=== PATIENT | male | born 1955 | race Caucasian/White ===

== ENCOUNTER 2018-06-23 12:37 | Inpatient (IN) | payer MEDICAID ==
[~2018-06-23] VITALS: Ht 182.9 cm; Wt 90.7 kg
[2018-06-23 13:03] VITALS: BP 160/110
--- NOTE | 2018-06-23 13:04 | NUR ---
brought in from home with complaints of abdominal pain which radiates to left upper chest x 3 days worse today , pain is worse when he take deep breath
--- NOTE | 2018-06-23 13:06 | NUR ---
venous blood draWN SEND TO LAB
--- NOTE | 2018-06-23 13:09 | NUR ---
ED Nurse Note: Pt is complaining of abdominal pain 10/10 radiating to his sides. x 2.5 weeks. A + O x4. Ambulatory. Skin cool to touch.
[2018-06-23] MEDS ORDERED: Ketorolac 30mg Inj IV ONE (13:15)
[2018-06-23] MEDS ORDERED: Isovue-300 100ml vial INJ PRN (13:15)
[2018-06-23 13:43] LABS: INR 1.1 (0.9-1.1)
[2018-06-23 13:47] LABS: ANION GAP 11 mmol/L (5-15); BLOOD UREA NITROGEN 28 mg/dL (7-18); CALCIUM 10.2 MG/DL (8.5-10.1); CARBON DIOXIDE 27 MMOL/L (21-32); CHLORIDE 102 MMOL/L (98-107); CREATININE 1.1 MG/DL (0.55-1.30); POTASSIUM 4.2 MMOL/L (3.5-5.1); SODIUM 140 MMOL/L (136-145)
[2018-06-23 13:54] LABS: ALANINE AMINOTRANSFERASE 36 U/L (12-78); ALBUMIN 4.5 G/DL (3.4-5.0); ALBUMIN/GLOBULIN RATIO 1.6 (1.0-2.7); ALKALINE PHOSPHATASE 50 U/L (46-116); ASPARTATE AMINO TRANSFERASE 29 U/L (15-37); BILIRUBIN,TOTAL 0.9 MG/DL (0.2-1.0)
[2018-06-23 14:03] LABS: BASOPHILS % (AUTO) 0.6 % (0.0-2.0); EOSINOPHILS % (AUTO) 2.1 % (0.0-3.0); HEMATOCRIT 52.2 % (42.0-52.0); HEMOGLOBIN 17.8 G/DL (14.2-18.0); LYMPHOCYTES % (AUTO) 11.2 % (20.0-45.0); MEAN CORPUSCULAR VOLUME 99 FL (80-99); MONOCYTES % (AUTO) 7.6 % (1.0-10.0); NEUTROPHILS % (AUTO) 78.5 % (45.0-75.0); PLATELET COUNT 162 K/UL (150-450); RED BLOOD COUNT 5.25 M/UL (4.70-6.10); RED CELL DISTRIBUTION WIDTH 11.3 % (11.6-14.8); WHITE BLOOD COUNT 11.7 K/UL (4.8-10.8)
[2018-06-23 14:03] LABS: APPEARANCE,URINE CLEAR; BILIRUBIN, URINE NEGATIVE (NEGATIVE); GLUCOSE, URINE (UA) NEGATIVE (NEGATIVE); KETONES,URINE NEGATIVE (NEGATIVE); LEUKOCYTE ESTERASE ,URINE 1+ (NEGATIVE); NITRITE,URINE NEGATIVE (NEGATIVE); PH,URINE 5 (4.5-8.0); PROTEIN,URINE 2+ (NEGATIVE); UROBILINOGEN,URINE 1 MG/DL (0.0-1.0)
[2018-06-23] MEDS ORDERED: TAMSULOSIN HCL0.4 MG ORAL (14:09)
[2018-06-23] MEDS ORDERED: NAPROXEN500 M2 ORAL (14:09)
[2018-06-23] MEDS ORDERED: CYCLOBENZAPRINE10 MG ORAL (14:09)
[2018-06-23] MEDS ORDERED: [UNRECOGNIZED DRUG - OTHER] (14:09)
[2018-06-23] MEDS ORDERED: TRAMADOL HCL50 MG ORAL (14:09)
[2018-06-23] MEDS ORDERED: GABAPENTIN300 MG ORAL (14:09)
[2018-06-23 14:18] LABS: COLOR,URINE YELLOW
--- NOTE | 2018-06-23 14:56 | NUR ---
ED Nurse Note: Pt going to CT.
--- NOTE | 2018-06-23 15:15 | NUR ---
ED Nurse Note: Pt came back from CT.
--- NOTE | 2018-06-23 15:22 | Emergency Room Report ---
History of Present Illness General Chief Complaint: Pain Source: Patient Present Illness HPI Patient is a 62-year-old male presented after increased low back pain. Patient reported to have increased generalized pain associated with low back spasms. He reportedly had prior history of lumbar disease. He denies any fever. He reports having worsening symptoms which she had onset after forcible sneeze.Reports having increased difficulty with ambulation. He states he has been having increased spasm to his low back.Patient had prior history of degenerative low back pain. He had reportedly been having increased symptoms for approximately 1 week. Patient denies any difficulty with urination. He denies any vomiting. He reports having increased abdominal distention Allergies: Coded Allergies: No Known Allergies (Unverified , 06/23/18) Patient History Past Medical History: see triage record Reviewed Nursing Documentation: PMH: Agreed; PSxH: Agreed Nursing Documentation-PMH Past Medical History: No History, Except For Hx Hypertension: Yes Hx Neurological Problems: Yes - neurontin Review of Systems All Other Systems: negative except mentioned in HPI Physical Exam Vital Signs Date Time Temp Pulse Resp B/P (MAP) Pulse Ox O2 Delivery O2 Flow Rate FiO2 06/23/18 12:33 98.4 94 20 160/110 96 Room Air Sp02 EP Interpretation: reviewed, normal General Appearance: normal inspection, no apparent distress, alert, GCS 15, Chronically Ill Head: atraumatic ENT: normal ENT inspection, hearing grossly normal, normal voice Neck: normal inspection, full range of motion, supple, no bony tend Respiratory: normal inspection, lungs clear, normal breath sounds, no respiratory distress, no retraction, no wheezing Cardiovascular #1: regular rate, rhythm, no edema Gastrointestinal: non tender, soft, no guarding, no hernia, distended Genitourinary: no CVA tenderness Musculoskeletal: normal range of motion, decreased range of motion Neurologic: normal inspection, alert, oriented x3, responsive, sports coordinator III-XII nml as tested, speech normal Psychiatric: normal inspection, judgement/insight normal, mood/affect normal Skin: normal inspection, normal color, no rash Medical Decision Making Diagnostic Impression: Primary Impression: Acute abdominal pain Additional Impression: Back muscle spasm ER Course Patient presented for low back pain. Differential diagnosis included but was not limited to herniated disc, cauda equina syndrome, abdominal aortic aneurysm , perforated ulcer, spinal epidural abscess, spinal stenosis, lumbar fracture, metastatic lesion, pyelonephritis. Because of complexity of patient's case laboratory testing and imaging studies were ordered. CT of the abdomen pelvis read by radiology showed abdominal distention no evidence of bowel obstruction with moderate fecal burden and bilateral small pleural effusions. Patient was given IV pain medications. Dr. Sukhdeep Wall was contacted for inpatient management due to patient's severe pain and evidence of pleural effusions. Patient will be admitted for further management and inpatient evaluation. At this time patient is able to move both lower extremities. Dr. Sukhdeep Wall was contacted for inpatient management. Laboratory Tests Test 06/24/18 08:45 06/25/18 08:05 06/25/18 10:10 06/25/18 12:50 White Blood Count 17.9 K/UL (4.8-10.8) #H 25.7 K/UL (4.8-10.8) *H Red Blood Count 5.52 M/UL (4.70-6.10) 5.52 M/UL (4.70-6.10) Hemoglobin 18.7 G/DL (14.2-18.0) *H 18.8 G/DL (14.2-18.0) *H Hematocrit 54.3 % (42.0-52.0) H 54.1 % (42.0-52.0) H Mean Corpuscular Volume 98 FL (80-99) 98 FL (80-99) Mean Corpuscular Hemoglobin 33.8 PG (27.0-31.0) H 34.1 PG (27.0-31.0) H Mean Corpuscular Hemoglobin Concent 34.4 G/DL (32.0-36.0) 34.8 G/DL (32.0-36.0) Red Cell Distribution Width 11.5 % (11.6-14.8) L 11.5 % (11.6-14.8) L Platelet Count 175 K/UL (150-450) 133 K/UL (150-450) L Mean Platelet Volume 6.9 FL (6.5-10.1) 7.8 FL (6.5-10.1) Neutrophils (%) (Auto) % (45.0-75.0) % (45.0-75.0) Lymphocytes (%) (Auto) % (20.0-45.0) % (20.0-45.0) Monocytes (%) (Auto) % (1.0-10.0) % (1.0-10.0) Eosinophils (%) (Auto) % (0.0-3.0) % (0.0-3.0) Basophils (%) (Auto) % (0.0-2.0) % (0.0-2.0) Differential Total Cells Counted 100 100 Neutrophils % (Manual) 91 % (45-75) H 94 % (45-75) H Lymphocytes % (Manual) 6 % (20-45) L 1 % (20-45) L Monocytes % (Manual) 3 % (1-10) 2 % (1-10) Eosinophils % (Manual) 0 % (0-3) 0 % (0-3) Basophils % (Manual) 0 % (0-2) 0 % (0-2) Band Neutrophils 0 % (0-8) 3 % (0-8) Platelet Estimate Adequate Decreased L Platelet Morphology Normal Normal Red Blood Cell Morphology Normal Normal Sodium Level 141 MMOL/L (136-145) 138 MMOL/L (136-145) Potassium Level 4.3 MMOL/L (3.5-5.1) 3.8 MMOL/L (3.5-5.1) Chloride Level 102 MMOL/L (98-107) 101 MMOL/L (98-107) Carbon Dioxide Level 29 MMOL/L (21-32) 23 MMOL/L (21-32) Anion Gap 10 mmol/L (5-15) 14 mmol/L (5-15) Blood Urea Nitrogen 22 mg/dL (7-18) H 28 mg/dL (7-18) H Creatinine 1.0 MG/DL (0.55-1.30) 1.2 MG/DL (0.55-1.30) Estimate Glomerular Filtration Rate > 60 mL/min (>60) > 60 mL/min (>60) Glucose Level 107 MG/DL (74-106) H 138 MG/DL (74-106) H Calcium Level 10.4 MG/DL (8.5-10.1) H 10.8 MG/DL (8.5-10.1) H Lactic Acid Level 2.40 mmol/L (0.4-2.0) H 3.10 mmol/L (0.66-2.22) H Last Vital Signs Date Time Temp Pulse Resp B/P (MAP) Pulse Ox O2 Delivery O2 Flow Rate FiO2 06/23/18 13:03 98.4 20 160/110 96 Room Air 06/23/18 12:33 94 Status: unchanged Disposition: ADMITTED INPATIENT Condition: Stable Referrals: NON PHYSICIAN (PCP) Maxx Bustos MD Jun 23, 2018 15:22
--- NOTE | 2018-06-23 15:47 | Diagnostic Imaging Report ---
Indication: Abdominal pain Technique: CT of the abdomen and pelvis utilizing automated exposure control with intravenous contrast. Venous scanning performed. Axial, sagittal and coronal reformats presented. CT dose: Total DLP 886.07 mGycm; CTDI vol 14.56 mGy Comparison: None Findings: There are trace bilateral pleural effusions, right greater than left. There is atelectasis/consolidation in the posterior lower lobes bilaterally. Heart is mildly enlarged. There are coronary arterial calcifications. There is a small hiatal hernia. Liver contour appears smooth. At least 2 subcentimeter low-attenuation lesions noted in the right hepatic lobe which may represent cysts or hemangiomas. These are poorly characterized on this exam. Gallbladder is without CT evident gallstones or pericholecystic inflammatory change. No biliary ductal dilatation. Hepatic veins and portal veins appear patent. Spleen, adrenal glands and pancreas unremarkable. Kidneys enhance symmetrically. No urinary tract stone or hydronephrosis bilaterally. Bladder is unremarkable in appearance. Prostate does not appear enlarged. A coarse calcifications noted in the region of the right testicle. There is no free intraperitoneal air or fluid. No evidence of bowel obstruction. No definite focal bowel wall thickening or perienteric inflammatory change. There is moderate colonic stool in the right and transverse colons. Atherosclerotic calcifications noted in a normal caliber abdominal aorta. No pathologically enlarged lymphadenopathy. No acute osseous abnormality. IMPRESSION: * Trace bilateral pleural effusions and adjacent atelectasis/consolidation in the posterior lower lobes. Multifocal pneumonia not excludable. * Moderate colonic stool burden raising question for constipation. No evidence to suggest bowel obstruction at this time. * Coronary arterial calcifications. * Small hiatal hernia. * 2 subcentimeter low-attenuation lesions in the right hepatic lobe which may represent cysts or hemangiomas. * Coarse calcification noted in the right testicle. Recommend further evaluation with scrotal ultrasound on a nonemergent basis. The CT scanner at [facility] is accredited by the [employer] and the scans are performed using protocols designed to limit radiation exposure to as low as reasonably achievable to attain images of sufficient resolution adequate for diagnostic evaluation.
[2018-06-23] MEDS ORDERED: Morphine Sulfate 4mg/ml Inj (IV/IM USE ONLY) IVP ONE (16:00)
--- NOTE | 2018-06-23 16:09 | NUR ---
ED Nurse Note: As per ERMD, pt okay to go up with SBP <170
--- NOTE | 2018-06-23 16:16 | NUR ---
ED Nurse Note: Gave telephone report to SHALOM Alberto. Waiting for packet from registration.
[2018-06-23 16:30] VITALS: BP 194/112
[2018-06-23] MEDS ORDERED: Fleet's Enema 133ml RECTAL SCH (16:30)
--- NOTE | 2018-06-23 16:30 | NUR ---
NURSE NOTES: Received report from SHALOM Booth. Pt is in severe abdominal pain that radiates from to right and left flank. Pt has not had a BM in [address] Giron paged. Bed is in lowest position, side rails up X2, and call light is within reach. Will continue to monitor.
--- NOTE | 2018-06-23 16:32 | NUR ---
ED Nurse Note: Transferred pt to tele. No acute distress noted. Left with all belongings.
[2018-06-23] MEDS: Docusate 100mg cap ORAL SCH (18:00)
--- NOTE | 2018-06-23 18:50 | NUR ---
NURSE NOTES: received orders from Dr. Giron. Orders noted and carried out.
[2018-06-23] MEDS: Morphine Sulfate 4mg/ml Inj (IV/IM USE ONLY) IVP PRN (19:31)
--- NOTE | 2018-06-23 19:50 | NUR ---
NURSE NOTES: patient received. patient in no acute distress at this time. patient complains of severe pain at this time. see emar. patient awake alert and oriented x4. patient constipated. see emar. bed in lowest position and locked. call light within reach. will continue to monitor.
[2018-06-23 20:00] VITALS: BP 211/123
--- NOTE | 2018-06-23 20:29 | History and Physical ---
History of Present Illness General Date patient seen: Jun 23, 2018 Time patient seen: 20:13 Reason for Hospitalization: Pain Present Illness HPI 62 yo male with h/o lumbar back pain presents with complaints of increasing lower back and abdominal pain. 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 States he takes pain medications at home for it. States it is difficult to walk due to pain. Patient also admits to severe diffuse abdominal pain, admits that he has not had a BM for almost two weeks. Denies vomiting, admits to occasional nausea. Admits to poor appetite. Denies fevers/chills/cp/sob, denies dysuria, denies [place]/vision changes. soc hx reviewed, denies smoking, drugs or alcohol use past fam hx reviewed, denies any sig past fam hx code status reviewed, DNR/DNI Allergies: Coded Allergies: No Known Allergies (Unverified , 06/23/18) Medication History Scheduled Cyclobenzaprine Hcl* (Flexeril*), 10 MG ORAL THREE TIMES A DAY, (Reported) Gabapentin* (Gabapentin*), 300 MG ORAL BID, (Reported) Naproxen* (Naproxen*), 500 MG ORAL TWICE A DAY, (Reported) Tamsulosin Hcl (Tamsulosin Hcl*), 0.4 MG ORAL BEDTIME, (Reported) Scheduled PRN Tramadol Hcl* (Ultram*), 50 MG ORAL Q6H PRN for For Pain, (Reported) Miscellaneous Medications [trumac], (Reported) Patient History History Provided By: Patient, Medical Record Healthcare decision maker Resuscitation status Do Not Resuscitate Advanced Directive on File Review of Systems All Other Systems: negative except mentioned in HPI ROS Narrative 14 point ROS reviewed and negative except per above HPI Physical Exam General Appearance: WD/WN, alert, mild distress Lines, tubes and drains: peripheral HEENT: normocephalic Neck: non-tender, normal alignment, supple, normal inspection Respiratory/Chest: chest wall non-tender, lungs clear, normal breath sounds, no respiratory distress, no accessory muscle use Cardiovascular/Chest: normal peripheral pulses, normal rate, regular rhythm Abdomen: no organomegaly, no mass, decreased bowel sounds, other - abdominal distention, mild ttp diffusely Extremities: normal range of motion, non-tender, normal inspection, no calf tenderness Skin Exam: normal pigmentation, warm/dry Neurologic: triage assistant II-XII grossly normal, no motor/sensory deficits, alert, oriented x 3, responsive, normal mood/affect Last 24 Hour Vital Signs Date Time Temp Pulse Resp B/P (MAP) Pulse Ox O2 Delivery O2 Flow Rate FiO2 06/23/18 17:58 Room Air 06/23/18 16:33 97.5 92 14 168/114 95 Room Air 06/23/18 16:30 99.9 97 22 194/112 (139) 100 06/23/18 13:03 98.4 20 160/110 96 Room Air 06/23/18 12:33 98.4 94 20 160/110 96 Room Air Laboratory Tests Test 06/23/18 12:58 06/23/18 13:45 White Blood Count 11.7 K/UL (4.8-10.8) H Red Blood Count 5.25 M/UL (4.70-6.10) Hemoglobin 17.8 G/DL (14.2-18.0) Hematocrit 52.2 % (42.0-52.0) H Mean Corpuscular Volume 99 FL (80-99) Mean Corpuscular Hemoglobin 33.9 PG (27.0-31.0) H Mean Corpuscular Hemoglobin Concent 34.1 G/DL (32.0-36.0) Red Cell Distribution Width 11.3 % (11.6-14.8) L Platelet Count 162 K/UL (150-450) Mean Platelet Volume 7.3 FL (6.5-10.1) Neutrophils (%) (Auto) 78.5 % (45.0-75.0) H Lymphocytes (%) (Auto) 11.2 % (20.0-45.0) L Monocytes (%) (Auto) 7.6 % (1.0-10.0) Eosinophils (%) (Auto) 2.1 % (0.0-3.0) Basophils (%) (Auto) 0.6 % (0.0-2.0) Prothrombin Time 11.4 SEC (9.30-11.50) Prothromb Time International Ratio 1.1 (0.9-1.1) Activated Partial Thromboplast Time 26 SEC (23-33) Sodium Level 140 MMOL/L (136-145) Potassium Level 4.2 MMOL/L (3.5-5.1) Chloride Level 102 MMOL/L (98-107) Carbon Dioxide Level 27 MMOL/L (21-32) Anion Gap 11 mmol/L (5-15) Blood Urea Nitrogen 28 mg/dL (7-18) H Creatinine 1.1 MG/DL (0.55-1.30) Estimat Glomerular Filtration Rate > 60 mL/min (>60) Glucose Level 99 MG/DL (74-106) Calcium Level 10.2 MG/DL (8.5-10.1) H Total Bilirubin 0.9 MG/DL (0.2-1.0) Aspartate Amino Transf (AST/SGOT) 29 U/L (15-37) Alanine Aminotransferase (ALT/SGPT) 36 U/L (12-78) Alkaline Phosphatase 50 U/L (46-116) Total Protein 7.3 G/DL (6.4-8.2) Albumin 4.5 G/DL (3.4-5.0) Globulin 2.8 g/dL Albumin/Globulin Ratio 1.6 (1.0-2.7) Lipase 78 U/L (73-393) Urine Color Yellow Urine Appearance Clear Urine pH 5 (4.5-8.0) Urine Specific [place] 1.025 (1.005-1.035) Urine Protein 2+ (NEGATIVE) H Urine Glucose (UA) Negative (NEGATIVE) Urine Ketones Negative (NEGATIVE) Urine Blood 1+ (NEGATIVE) H Urine Nitrite Negative (NEGATIVE) Urine Bilirubin Negative (NEGATIVE) Urine Urobilinogen 1 MG/DL (0.0-1.0) H Urine Leukocyte Esterase 1+ (NEGATIVE) H Urine RBC 2-4 /HPF (0 - 0) H Urine WBC 2-4 /HPF (0 - 0) Urine Squamous Epithelial Cells Occasional /LPF Urine Bacteria Occasional /HPF (NONE) Height (Feet): 6 Height (Inches): 0.00 Weight (Pounds): 200 Medications Current Medications Medications (Trade) Dose Ordered Sig/Mitzi Route PRN Reason Start Time Stop Time Status Last Admin Dose Admin Docusate Sodium (Colace) 100 mg THREE TIMES A DAY ORAL 06/23/18 18:00 07/23/18 17:59 06/23/18 18:00 Heparin Sodium (Porcine) (Heparin 5000 units/ml) 5,000 units EVERY 12 HOURS SUBQ 06/23/18 21:00 1/25/19 20:59 Iopamidol (Isovue-300 100ml) 100 ml NOW PRN INJ Radiology Procedure 06/23/18 13:15 Metoprolol Tartrate (Lopressor) 25 mg Q12HR ORAL 06/23/18 21:00 07/23/18 20:59 Morphine Sulfate (Morphine Sulfate) 1 mg Q4H PRN IVP For Pain 06/23/18 19:00 06/30/18 18:59 06/23/18 19:31 Ondansetron HCl (Zofran) 4 mg Q6H PRN IVP Nausea & Vomiting 06/23/18 19:00 07/23/18 18:59 Pantoprazole (Protonix) 40 mg DAILY IVP 06/24/18 09:00 07/24/18 08:59 Polyethylene Glycol (Miralax) 17 gm BEDTIME ORAL 06/23/18 21:00 07/23/18 20:59 Promethazine HCl (Phenergan Supp) 25 mg ONCE RECTAL 06/23/18 20:00 06/23/18 22:00 Sodium Chloride 1,000 ml @ 100 mls/hr Q10H IV 06/23/18 19:00 07/23/18 18:59 06/23/18 19:15 Assessment/Plan Problem List: (1) Back pain at L4-L5 level Assessment & Plan: likely muscle spasms vs nerve impingement MRI L-Spine wo contrast pending resume muscle relaxants gabapentin cyclobenzaprine morphine 2mg IV q6hrs ICD Codes: M54.5 - Low back pain SNOMED: 627481693 (2) Acute abdominal pain Assessment & Plan: due to severe constipation CT abd/pelvis reviewed, showing fecal impaction enema bowel care suppository gi consult monitor closely ICD Codes: R10.9 - Unspecified abdominal pain SNOMED: 889306585 (3) Fecal impaction Assessment & Plan: as per above cont bowel care gi consult ICD Codes: K56.41 - Fecal impaction SNOMED: 64121170 (4) DEANNA (acute kidney injury) Assessment & Plan: due to dehydration Cr 1.1 likely prerenal IVF monitor closely ICD Codes: N17.9 - Acute kidney failure, unspecified SNOMED: 17718691 (5) Dehydration Assessment & Plan: IVF for hydration monitor closely NS 100cc/hr ICD Codes: E86.0 - Dehydration SNOMED: 07877028 Status: stable Assessment/Plan diet: clear liquid , adat DVT Prophylaxis: SCD, HSQ Code Status: Full Hospital Classification Declaration: Based on this initial evaluation, and depending on the patient's clinical course, I anticipate that this patient will require hospitalization for 2-3 midnights for severe back pain and abdominal pain and close respiratory/hemodynamic monitoring. Disposition: Once the patient is stable to leave the hospital, I anticipate the patient will likely be discharged to the following environment: home with HH vs SNF I spent 70 minutes on this patient's case, and 43 minutes were dedicated to counseling and/or care coordination. Discussed with patient/family, nursing staff, SW/CM, [] regarding clinical status, treatment course, and disposition planning. Time of note may not reflect time of encounter. -- Date of Discussion: 06/23/18 A [id number] discussion with the patient regarding the patient's advanced care planning took place during this hospitalization on the above date. The discussion included the explanation and discussion of advance directives and associated forms/documents, as well as the patient's current code status. We also discussed at length the patient's medical conditions (both acute and chronic), general prognosis, treatment options, and goals of care. The following summarizes the discussion: Advance Care Planning/Goals of Care: - Will attempt to fill out an AD and/or POLST with the patient prior to discharge, if not already completed - Continue current evaluation and management of any acute and chronic medical issues - Will continue to support the patient/family - Will continue to discuss both short- and long-term goals of care DPOA-HC/Surrogate Decision Maker: None currently appointed . He does not have any friends/family that could support him or help him if needed Code Status: DNR/DNI AD Forms/Documents Completed: Deferred A total of 35 minutes was spent on this discussion, including counseling, answering questions, and completing, if any, pertinent advanced care planning forms/documents. Dudley Giron MD Jun 23, 2018 20:29
--- NOTE | 2018-06-23 20:30 | NUR ---
NURSE NOTES: Report given to SHALOM Lea. Plan of care endorsed.
[2018-06-23] MEDS: Metoprolol 25mg tab ORAL SCH (20:58)
[2018-06-23] MEDS: Miralax 17gm pkt ORAL SCH (20:58)
[2018-06-23] MEDS: Heparin 5000 units/ml inj SUBQ SCH (20:59)
[2018-06-23] MEDS: Tamsulosin 0.4mg cap ORAL SCH (21:19)
[2018-06-23] MEDS: Cyclobenzaprine 10mg Tab ORAL SCH (21:20)
--- NOTE | 2018-06-23 21:28 | NUR ---
NURSE NOTES: Dr. Chou called and informed about patients high blood pressure 211/129. he ordered some medication PRN see emar. will continue to monitor.
[2018-06-24] VITALS: BP 193/119
--- NOTE | 2018-06-24 07:16 | NUR ---
NURSE NOTES: patient very distended and in a lot of pain. wants muscle relaxer and fleet enama. I had called dr jacobo and he hasnt called yet. I informed the day shift nurse.
--- NOTE | 2018-06-24 07:18 | NUR ---
HAND-OFF: Report given to SHALOM darby.
--- NOTE | 2018-06-24 07:19 | NUR ---
NURSE NOTES: Received patient from SHALOM Palma.Patient was complaining of a lot of abdominal pain, Pain medication given to patient. Patient is resting in bed and in semi-marsh position. IV site is asymptomatic and running in RX dose. No sign of SOB. Bed in lowest position with two side rails up. Side table and call light within reach, will continue to monitor and follow plan of care.
[2018-06-24] MEDS: Morphine Sulfate 4mg/ml Inj (IV/IM USE ONLY) IVP PRN ×3 (07:20→20:22)
[2018-06-24 08:00] VITALS: BP 184/114
--- NOTE | 2018-06-24 08:21 | General Progress Note ---
Assessment/Plan Problem List: (1) Small bowel obstruction Assessment & Plan: SBO not passing gas ct showing fecal impaction enema given on admit, no BMs still severe abd pain pain control GI consult for further recs close monitoring may need NGT ICD Codes: K56.609 - Unspecified intestinal obstruction, unspecified as to partial versus complete obstruction SNOMED: 021174663 (2) Acute abdominal pain Assessment & Plan: due to severe constipation CT abd/pelvis reviewed, showing fecal impaction enema bowel care suppository gi consult monitor closely ICD Codes: R10.9 - Unspecified abdominal pain SNOMED: 393103857 (3) Fecal impaction Assessment & Plan: as per above cont bowel care gi consult ICD Codes: K56.41 - Fecal impaction SNOMED: 43887669 (4) Back pain at L4-L5 level Assessment & Plan: likely muscle spasms vs nerve impingement MRI L-Spine wo contrast pending resume muscle relaxants gabapentin cyclobenzaprine morphine 2mg IV q6hrs ICD Codes: M54.5 - Low back pain SNOMED: 890217144 (5) DEANNA (acute kidney injury) Assessment & Plan: due to dehydration Cr 1.1 on admit, pending repeat labs, cont IVF likely prerenal IVF monitor closely ICD Codes: N17.9 - Acute kidney failure, unspecified SNOMED: 00097601 (6) Dehydration Assessment & Plan: IVF for hydration monitor closely NS 100cc/hr ICD Codes: E86.0 - Dehydration SNOMED: 36758807 (7) AIDS Assessment & Plan: patient unsure of home medication however states he is very compliant pharmacy to help ICD Codes: B20 - Human immunodeficiency virus [HIV] disease SNOMED: 56895809 (8) HIV (human immunodeficiency virus infection) Assessment & Plan: pharmacy to help find patient's medication and dosing so that we can resume patient unsure of medication name/dosing, states he is compliant ICD Codes: B20 - Human immunodeficiency virus [HIV] disease SNOMED: 48218538 Status: stable Assessment/Plan diet: clear liquid , adat DVT Prophylaxis: SCD, HSQ Code Status: Full Hospital Classification Declaration: Based on this initial evaluation, and depending on the patient's clinical course, I anticipate that this patient will require hospitalization for 2-3 midnights for severe back pain and abdominal pain and close respiratory/hemodynamic monitoring. Disposition: Once the patient is stable to leave the hospital, I anticipate the patient will likely be discharged to the following environment: home I spent 60 minutes on this patient's case, and 40 minutes were dedicated to counseling and/or care coordination. Discussed with patient/family, nursing staff, SW/CM, abd consultants regarding clinical status, treatment course, and disposition planning. Time of note may not reflect time of encounter. -- Date of Discussion: 06/23/18 A [id number] discussion with the patient regarding the patient's advanced care planning took place during this hospitalization on the above date. The discussion included the explanation and discussion of advance directives and associated forms/documents, as well as the patient's current code status. We also discussed at length the patient's medical conditions (both acute and chronic), general prognosis, treatment options, and goals of care. The following summarizes the discussion: Advance Care Planning/Goals of Care: - Will attempt to fill out an AD and/or POLST with the patient prior to discharge, if not already completed - Continue current evaluation and management of any acute and chronic medical issues - Will continue to support the patient/family - Will continue to discuss both short- and long-term goals of care DPOA-HC/Surrogate Decision Maker: None currently appointed . He does not have any friends/family that could support him or help him if needed Code Status: DNR/DNI AD Forms/Documents Completed: Deferred A total of 35 minutes was spent on this discussion, including counseling, answering questions, and completing, if any, pertinent advanced care planning forms/documents. Subjective Date patient seen: Jun 24, 2018 Time patient seen: 08:15 Allergies: Coded Allergies: No Known Allergies (Unverified , 06/23/18) Subjective f/u sbo, abdominal distention, intractable abdominal pain, back pain states he is still having severe abdominal pain denies passing Gas No BMs overnight despite enema given states pain is diffuse admits to mild nausea but no vomiting GI consult pending for further evaluation denies fevers/chills/cp/sob ROS: 14 point ROS negative except per above HPI Objective Last 24 Hour Vital Signs Date Time Temp Pulse Resp B/P (MAP) Pulse Ox O2 Delivery O2 Flow Rate FiO2 06/24/18 04:00 96 06/24/18 00:00 102 06/24/18 00:00 193/119 (143) 06/23/18 22:32 211/129 06/23/18 21:00 Room Air 06/23/18 20:58 92 168/114 06/23/18 20:00 103 06/23/18 20:00 211/123 (152) 06/23/18 17:58 Room Air 06/23/18 16:33 97.5 92 14 168/114 95 Room Air 06/23/18 16:30 99.9 97 22 194/112 (139) 100 06/23/18 13:03 98.4 20 160/110 96 Room Air 06/23/18 12:33 98.4 94 20 160/110 96 Room Air Intake and Output 06/23/18 06/24/18 19:00 07:00 Output Total 250 ml Balance -250 ml Output Urine Total 250 ml # Voids 1 1 Laboratory Tests 06/23/18 12:58: White Blood Count 11.7H, Red Blood Count 5.25, Hemoglobin 17.8, Hematocrit 52.2H , Mean Corpuscular Volume 99, Mean Corpuscular Hemoglobin 33.9H, Mean Corpuscular Hemoglobin Concent 34.1, Red Cell Distribution Width 11.3L, Platelet Count 162, Mean Platelet Volume 7.3, Neutrophils (%) (Auto) 78.5H, Lymphocytes (%) (Auto) 11.2L, Monocytes (%) (Auto) 7.6, Eosinophils (%) (Auto) 2.1, Basophils (%) (Auto) 0.6, Prothrombin Time 11.4, Prothromb Time International Ratio 1.1, Activated Partial Thromboplast Time 26, Sodium Level 140, Potassium Level 4.2, Chloride Level 102, Carbon Dioxide Level 27, Anion Gap 11, Blood Urea Nitrogen 28H, Creatinine 1.1, Estimat Glomerular Filtration Rate > 60, Glucose Level 99, Calcium Level 10.2H, Total Bilirubin 0.9, Aspartate Amino Transf (AST/SGOT) 29, Alanine Aminotransferase (ALT/SGPT) 36, Alkaline Phosphatase 50, Total Protein 7.3, Albumin 4.5, Globulin 2.8, Albumin/ Globulin Ratio 1.6, Lipase 78 06/23/18 13:45: Urine Color Yellow, Urine Appearance Clear, Urine pH 5, Urine Specific [place] 1.025, Urine Protein 2+H, Urine Glucose (UA) Negative, Urine Ketones Negative, Urine Blood 1+H, Urine Nitrite Negative, Urine Bilirubin Negative, Urine Urobilinogen 1H, Urine Leukocyte Esterase 1+H, Urine RBC 2-4H, Urine WBC 2-4, Urine Squamous Epithelial Cells Occasional, Urine Bacteria Occasional Height (Feet): 6 Height (Inches): 0.00 Weight (Pounds): 200 Objective General Appearance: WD/WN, alert, mild distress Lines, tubes and drains: peripheral HEENT: normocephalic Neck: non-tender, normal alignment, supple, normal inspection Respiratory/Chest: chest wall non-tender, lungs clear, normal breath sounds, no respiratory distress, no accessory muscle use Cardiovascular/Chest: normal peripheral pulses, normal rate, regular rhythm Abdomen: no organomegaly, no mass, decreased bowel sounds, other - abdominal distention, mild ttp diffusely Extremities: normal range of motion, non-tender, normal inspection, no calf tenderness Skin Exam: normal pigmentation, warm/dry 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
--- NOTE | 2018-06-24 08:28 | NUR ---
06/24 @ 0800 HRS pt CURRENTLY REFUSING MRI DUE TO CLAUSTROPHOBIA. CLAIMS THAT SEDATION WILL NOT HELP - CS
[2018-06-24] MEDS: Pantoprazole Inj IVP SCH (08:45)
[2018-06-24] MEDS: Cyclobenzaprine 10mg Tab ORAL SCH ×3 (08:45→18:02)
[2018-06-24] MEDS: Docusate 100mg cap ORAL SCH ×3 (08:46→18:02)
[2018-06-24] MEDS: Metoprolol 25mg tab ORAL SCH ×2 (08:46→20:19)
[2018-06-24] MEDS: Heparin 5000 units/ml inj SUBQ SCH ×2 (08:54→20:21)
[2018-06-24 09:05] LABS: HEMATOCRIT 54.3 % (42.0-52.0); MEAN CORPUSCULAR VOLUME 98 FL (80-99); PLATELET COUNT 175 K/UL (150-450); RED BLOOD COUNT 5.52 M/UL (4.70-6.10); RED CELL DISTRIBUTION WIDTH 11.5 % (11.6-14.8); WHITE BLOOD COUNT 17.9 K/UL (4.8-10.8)
[2018-06-24 09:06] LABS: HEMOGLOBIN 18.7 G/DL (14.2-18.0)
[2018-06-24 09:10] LABS: ANION GAP 10 mmol/L (5-15); BLOOD UREA NITROGEN 22 mg/dL (7-18); CALCIUM 10.4 MG/DL (8.5-10.1); CARBON DIOXIDE 29 MMOL/L (21-32); CHLORIDE 102 MMOL/L (98-107); POTASSIUM 4.3 MMOL/L (3.5-5.1); SODIUM 141 MMOL/L (136-145)
[2018-06-24] MEDS ORDERED: Fleet's Enema 133ml RECTAL ONE (10:15)
--- NOTE | 2018-06-24 11:08 | GI Initial Consult Note ---
History of Present Illness General Date patient seen: Jun 24, 2018 Time patient seen: 11:02 Reason for Hospitalization: Pain Referring physician: JEAN PAUL UMANZOR Reason for Consultation: SBO Present Illness HPI Patient is a 62-year-old male presented after increased low back pain. Patient reported to have increased generalized pain associated with low back spasms. He poorly had prior history of lumbar disease. He denies any fever. He reports having worsening symptoms which she had onset after forcible sneeze.Reports having increased difficulty with ambulation. He states he has been having increased spasm to his low back. GI consulted for possible small bowel obstruction patient was seen, awake alert and oriented x4 with no apparent distress. Abdomen was assessed noted to be distended, tympanic in all quadrants. Abdominal pelvis CT was done, mainly noted for no signs of a small bowel obstruction. According to the patient, he states he is not passing any flatus nor has had a bowel movement in approximately 3 weeks and is complaining of increased abdominal discomfort. Patient states she takes tramadol and Neurontin for his neuropathy. He states his last colonoscopy has been greater than 5 years ago with no remarkable results. Home Meds Reported Medications [trumac] No Conflict Check 06/23/18 Tamsulosin Hcl (TAMSULOSIN HCL*) 0.4 Mg Cap.er.24h, 0.4 MG ORAL BEDTIME, CAP 06/23/18 Cyclobenzaprine Hcl* (FLEXERIL*) 10 Mg Tablet, 10 MG ORAL THREE TIMES A DAY, TAB 06/23/18 Naproxen* (NAPROXEN*) 500 Mg Tablet, 500 MG ORAL TWICE A DAY, TAB 06/23/18 Gabapentin* (GABAPENTIN*) 300 Mg Capsule, 300 MG ORAL BID, CAP 06/23/18 Tramadol Hcl* (ULTRAM*) 50 Mg Tablet, 50 MG ORAL Q6H PRN for For Pain, #30 TAB 0 Refills 06/23/18 Med list reviewed/reconciled: Yes Allergies: Coded Allergies: No Known Allergies (Unverified , 06/23/18) Patient History History Provided By: Patient, Medical Record [facility] Narrative Past Medical History: No History, Except For Hx Hypertension: Yes Hx Neurological Problems: Yes - Neurontin Social History: Denies: smoking, alcohol use, drug use, other Review of Systems All Other Systems: negative except mentioned in HPI Physical Exam Vital Signs Date Time Temp Pulse Resp B/P (MAP) Pulse Ox O2 Delivery O2 Flow Rate FiO2 06/23/18 12:33 98.4 94 20 160/110 96 Room Air Sp02 EP Interpretation: reviewed, normal Labs Laboratory Tests Test 06/23/18 12:58 06/23/18 13:45 06/24/18 08:45 White Blood Count 11.7 K/UL (4.8-10.8) H 17.9 K/UL (4.8-10.8) #H Red Blood Count 5.25 M/UL (4.70-6.10) 5.52 M/UL (4.70-6.10) Hemoglobin 17.8 G/DL (14.2-18.0) 18.7 G/DL (14.2-18.0) *H Hematocrit 52.2 % (42.0-52.0) H 54.3 % (42.0-52.0) H Mean Corpuscular Volume 99 FL (80-99) 98 FL (80-99) Mean Corpuscular Hemoglobin 33.9 PG (27.0-31.0) H 33.8 PG (27.0-31.0) H Mean Corpuscular Hemoglobin Concent 34.1 G/DL (32.0-36.0) 34.4 G/DL (32.0-36.0) Red Cell Distribution Width 11.3 % (11.6-14.8) L 11.5 % (11.6-14.8) L Platelet Count 162 K/UL (150-450) 175 K/UL (150-450) Mean Platelet Volume 7.3 FL (6.5-10.1) 6.9 FL (6.5-10.1) Neutrophils (%) (Auto) 78.5 % (45.0-75.0) H % (45.0-75.0) Lymphocytes (%) (Auto) 11.2 % (20.0-45.0) L % (20.0-45.0) Monocytes (%) (Auto) 7.6 % (1.0-10.0) % (1.0-10.0) Eosinophils (%) (Auto) 2.1 % (0.0-3.0) % (0.0-3.0) Basophils (%) (Auto) 0.6 % (0.0-2.0) % (0.0-2.0) Prothrombin Time 11.4 SEC (9.30-11.50) Prothromb Time International Ratio 1.1 (0.9-1.1) Activated Partial Thromboplast Time 26 SEC (23-33) Sodium Level 140 MMOL/L (136-145) 141 MMOL/L (136-145) Potassium Level 4.2 MMOL/L (3.5-5.1) 4.3 MMOL/L (3.5-5.1) Chloride Level 102 MMOL/L (98-107) 102 MMOL/L (98-107) Carbon Dioxide Level 27 MMOL/L (21-32) 29 MMOL/L (21-32) Anion Gap 11 mmol/L (5-15) 10 mmol/L (5-15) Blood Urea Nitrogen 28 mg/dL (7-18) H 22 mg/dL (7-18) H Creatinine 1.1 MG/DL (0.55-1.30) 1.0 MG/DL (0.55-1.30) Estimat Glomerular Filtration Rate > 60 mL/min (>60) > 60 mL/min (>60) Glucose Level 99 MG/DL (74-106) 107 MG/DL (74-106) H Calcium Level 10.2 MG/DL (8.5-10.1) H 10.4 MG/DL (8.5-10.1) H Total Bilirubin 0.9 MG/DL (0.2-1.0) Aspartate Amino Transf (AST/SGOT) 29 U/L (15-37) Alanine Aminotransferase (ALT/SGPT) 36 U/L (12-78) Alkaline Phosphatase 50 U/L (46-116) Total Protein 7.3 G/DL (6.4-8.2) Albumin 4.5 G/DL (3.4-5.0) Globulin 2.8 g/dL Albumin/Globulin Ratio 1.6 (1.0-2.7) Lipase 78 U/L (73-393) Urine Color Yellow Urine Appearance Clear Urine pH 5 (4.5-8.0) Urine Specific [place] 1.025 (1.005-1.035) Urine Protein 2+ (NEGATIVE) H Urine Glucose (UA) Negative (NEGATIVE) Urine Ketones Negative (NEGATIVE) Urine Blood 1+ (NEGATIVE) H Urine Nitrite Negative (NEGATIVE) Urine Bilirubin Negative (NEGATIVE) Urine Urobilinogen 1 MG/DL (0.0-1.0) H Urine Leukocyte Esterase 1+ (NEGATIVE) H Urine RBC 2-4 /HPF (0 - 0) H Urine WBC 2-4 /HPF (0 - 0) Urine Squamous Epithelial Cells Occasional /LPF Urine Bacteria Occasional /HPF (NONE) Differential Total Cells Counted 100 Neutrophils % (Manual) 91 % (45-75) H Lymphocytes % (Manual) 6 % (20-45) L Monocytes % (Manual) 3 % (1-10) Eosinophils % (Manual) 0 % (0-3) Basophils % (Manual) 0 % (0-2) Band Neutrophils 0 % (0-8) Platelet Estimate Adequate Platelet Morphology Normal Red Blood Cell Morphology Normal General Appearance: well appearing, no apparent distress, alert Head: normocephalic EENT: PERRL/EOMI, normal ENT inspection Neck: supple Respiratory: normal breath sounds, no respiratory distress Cardiovascular: normal rate Gastrointestinal: normal inspection, non tender, soft, normal bowel sounds, non -distended Rectal: deferred Genitourinary: deferred Musculoskeletal: normal inspection, back normal Neurologic: normal inspection, alert, oriented x3, responsive Psychiatric: normal inspection, judgement/insight normal, memory normal Skin: normal inspection, normal color, no rash, warm/dry, palpation normal, well hydrated Lymphatic: normal inspection, no adenopathy Current Medications Current Medications Medications (Trade) Dose Ordered Sig/Mitzi Route PRN Reason Start Time Stop Time Status Last Admin Dose Admin Cyclobenzaprine HCl (Flexeril) 10 mg THREE TIMES A DAY ORAL 06/23/18 20:30 07/23/18 20:29 06/24/18 08:45 Docusate Sodium (Colace) 100 mg THREE TIMES A DAY ORAL 06/23/18 18:00 07/23/18 17:59 06/24/18 08:46 Gabapentin (Neurontin) 300 mg BID ORAL 06/23/18 20:30 07/23/18 20:29 06/24/18 08:46 Heparin Sodium (Porcine) (Heparin 5000 units/ml) 5,000 units EVERY 12 HOURS SUBQ 06/23/18 21:00 07/23/18 20:59 06/24/18 08:54 Hydralazine HCl (Apresoline) 10 mg Q6H PRN IV For High Blood Pressure 06/23/18 21:30 07/23/18 21:29 Iopamidol (Isovue-300 100ml) 100 ml NOW PRN INJ Radiology Procedure 06/23/18 13:15 Metoprolol Tartrate (Lopressor) 25 mg Q12HR ORAL 06/23/18 21:00 07/23/18 20:59 06/24/18 08:46 Morphine Sulfate (Morphine Sulfate) 1 mg Q4H PRN IVP For Pain 06/23/18 19:00 06/30/18 18:59 06/24/18 07:20 Ondansetron HCl (Zofran) 4 mg Q6H PRN IVP Nausea & Vomiting 06/23/18 19:00 07/23/18 18:59 Pantoprazole (Protonix) 40 mg DAILY IVP 06/24/18 09:00 07/24/18 08:59 06/24/18 08:45 Polyethylene Glycol (Miralax) 17 gm BEDTIME ORAL 06/23/18 21:00 07/23/18 20:59 06/23/18 20:58 Sodium Chloride 1,000 ml @ 100 mls/hr Q10H IV 06/23/18 19:00 07/23/18 18:59 06/24/18 06:00 Tamsulosin HCl (Flomax) 0.4 mg BEDTIME ORAL 06/23/18 21:00 07/23/18 20:59 06/23/18 21:19 GI: Plan Problems: (1) Constipation (2) Small bowel obstruction (3) Fecal impaction (4) Dehydration Plan Abdominal pelvis CT reviewed, see full report>> * Trace bilateral pleural effusions and adjacent atelectasis/consolidation in the posterior lower lobes. Multifocal pneumonia not excludable. * Moderate colonic stool burden raising question for constipation. No evidence to suggest bowel obstruction at this time. Aggressive bowel regimen, will consider digital disimpaction if medical management fails Maintain clear liquid diet + IVF, will advance when patient has bowel. PT evaluation turn q2 hours ambulate as tolerated fu labs outpatient procedures Discussed with Dr. Scanlon. Thank you for this patient referral, we will follow. The patient was seen and examined at bedside and all new and available data was reviewed in the patients chart. I agree with the above findings, impression and plan. (Patient seen earlier today. Signature stamp does not reflect patient encounter time.). - MD Nelly LeungTuba City Regional Health Care CorporationDevika STEINER Jun 24, 2018 11:08
[2018-06-24] MEDS ORDERED: Fleet's Mineral Oil Enema RECTAL SCH (11:15)
[2018-06-24 11:16] VITALS: BP 171/108
[2018-06-24 12:00] VITALS: BP 161/95
[2018-06-24] MEDS: Mineral Oil 30ml ud ORAL SCH (13:43)
--- NOTE | 2018-06-24 13:51 | NUR ---
CASE MANAGEMENT:REVIEW 62 YR OLD MALE MANISHA FROM HOME CC; ABDOMINAL AND BILATERAL FLANK PAIN THAT RADIATES TO UPPER CHEST SI: PAIN 98.4 94 20 160/110 96% ON RA WBC+11.7 BUN+28 IS: IV ZOFRAN IV TORADOL CT ABD/PELVIS : TO TELEMETRY UNIT SI: T~99.9 BP~194/112 IS: IV MORPHINE Q4 PRN IV HYDRALAZINE Addendum: 06/24/18 at 1412 by MARTINE HOLDER LVN LVN INTERQUAL CRITERIA MET
[2018-06-24 16:00] VITALS: BP 150/96
[2018-06-24] MEDS: TRIUMEQ ORAL SCH (18:02)
--- NOTE | 2018-06-24 19:30 | NUR ---
NURSE NOTES: Report received from Whitney RAUSCH. Pt is resting in bed in stable condition. Pt is awake, alert, and oriented x4. Pt is on room air and breathing is even and unlabored. No acute distress noted. IV site has been pulled out per patient. Will insert new IV site TITI. Bed is in lowest position with brake engaged, side rails up x3, and bed alarm on. Call light and side table are within reach. Pt is c/o 10/10 abdominal pain described as "sharp and stabbing" with radiation to the sides. Will administer pain medication per orders. Will continue to monitor patient.
[2018-06-24 20:00] VITALS: BP 141/92
[2018-06-24] MEDS: Tamsulosin 0.4mg cap ORAL SCH (20:19)
[2018-06-24] MEDS: Miralax 17gm pkt ORAL SCH (20:22)
--- NOTE | 2018-06-24 21:25 | NUR ---
NURSE NOTES: Pt received 1mg morphine IVP @ 2022 for 1010 "sharp, stabbing" abdominal pain reported per patient. Pt re-assessed 30 minutes later and still c/o 10 pain. MD Giron contacted regarding pt pain level. Per MD Giron, give 1mg morphine IVP ONCE and change PRN order to 2mg morphine IVP Q4HR PRN. Orders noted and carried out.
[2018-06-24] MEDS ORDERED: Morphine Sulfate 4mg/ml Inj (IV/IM USE ONLY) IVP SCH (21:30)
[2018-06-25] VITALS: BP 184/96
[2018-06-25] MEDS: Morphine Sulfate 4mg/ml Inj (IV/IM USE ONLY) IVP PRN ×3 (00:26→15:57)
[2018-06-25 04:00] VITALS: BP 163/76
--- NOTE | 2018-06-25 07:12 | NUR ---
HAND-OFF: Report given to Whitney RAUSCH. Pt is resting in bed in stable condition. No acute distress noted. Endorsed plan of care.
--- NOTE | 2018-06-25 07:13 | NUR ---
NURSE NOTES: Report received from SHALOM Wolff. Pt is resting in bed in stable condition. Pt is awake, alert, and oriented x4. Pt is on room air and breathing is even and unlabored. No acute distress noted at this time. IV site is patent and asymptomatic and is running at RX rate. Bed is in lowest position with brake engaged, two side rails up, and bed alarm on. Call light and side table are within reach. Pt is complaining of abdominal pain. Will continue to monitor and follow plan of care.
[2018-06-25 08:00] VITALS: BP 173/109
--- NOTE | 2018-06-25 08:29 | General Progress Note ---
Assessment/Plan Problem List: (1) Small bowel obstruction Assessment & Plan: SBO not passing gas ct showing fecal impaction multiple enemas yesterday with small BM cont aggressive bowel regiment severe abd pain pain control GI consult appreciate close monitoring ICD Codes: K56.609 - Unspecified intestinal obstruction, unspecified as to partial versus complete obstruction SNOMED: 076065049 (2) Acute abdominal pain Assessment & Plan: due to severe constipation CT abd/pelvis reviewed, showing fecal impaction enema bowel care suppository gi consult monitor closely ICD Codes: R10.9 - Unspecified abdominal pain SNOMED: 976662238 (3) Fecal impaction Assessment & Plan: as per above cont bowel care gi consult ICD Codes: K56.41 - Fecal impaction SNOMED: 22633694 (4) Back pain at L4-L5 level Assessment & Plan: likely muscle spasms vs nerve impingement MRI L-Spine wo contrast pending resume muscle relaxants gabapentin cyclobenzaprine morphine 2mg IV q6hrs ICD Codes: M54.5 - Low back pain SNOMED: 239407712 (5) DEANNA (acute kidney injury) Assessment & Plan: due to dehydration Cr 1.1 on admit, pending repeat labs, cont IVF likely prerenal IVF monitor closely ICD Codes: N17.9 - Acute kidney failure, unspecified SNOMED: 52948542 (6) Dehydration Assessment & Plan: IVF for hydration monitor closely NS 100cc/hr ICD Codes: E86.0 - Dehydration SNOMED: 63761967 (7) AIDS Assessment & Plan: cont home meds ICD Codes: B20 - Human immunodeficiency virus [HIV] disease SNOMED: 85365945 (8) HIV (human immunodeficiency virus infection) Assessment & Plan: resume home meds ICD Codes: B20 - Human immunodeficiency virus [HIV] disease SNOMED: 57638312 Status: stable Assessment/Plan diet: clear liquid , adat DVT Prophylaxis: SCD, HSQ Code Status: Full Hospital Classification Declaration: Based on this initial evaluation, and depending on the patient's clinical course, I anticipate that this patient will require hospitalization for 2-3 midnights for severe back pain and abdominal pain and close respiratory/hemodynamic monitoring. Disposition: Once the patient is stable to leave the hospital, I anticipate the patient will likely be discharged to the following environment: home I spent 55 minutes on this patient's case, and 40 minutes were dedicated to counseling and/or care coordination. Discussed with patient/family, nursing staff, SW/CM, abd consultants regarding clinical status, treatment course, and disposition planning. Time of note may not reflect time of encounter. -- Date of Discussion: 06/23/18 A [id number] discussion with the patient regarding the patient's advanced care planning took place during this hospitalization on the above date. The discussion included the explanation and discussion of advance directives and associated forms/documents, as well as the patient's current code status. We also discussed at length the patient's medical conditions (both acute and chronic), general prognosis, treatment options, and goals of care. The following summarizes the discussion: Advance Care Planning/Goals of Care: - Will attempt to fill out an AD and/or POLST with the patient prior to discharge, if not already completed - Continue current evaluation and management of any acute and chronic medical issues - Will continue to support the patient/family - Will continue to discuss both short- and long-term goals of care DPOA-HC/Surrogate Decision Maker: None currently appointed . He does not have any friends/family that could support him or help him if needed Code Status: DNR/DNI AD Forms/Documents Completed: Deferred A total of 35 minutes was spent on this discussion, including counseling, answering questions, and completing, if any, pertinent advanced care planning forms/documents. Subjective Date patient seen: Jun 25, 2018 Time patient seen: 08:25 Allergies: Coded Allergies: No Known Allergies (Unverified , 06/23/18) Subjective f/u sbo, abdominal distention, intractable abdominal pain, back pain still having severe abd pain having cramping abd pain had multiple enemas yesterday had small BM yesterday states he does not like to have too much morphine as it gives him hallucinations admits to mild nausea occasionally, denies vomiting ROS: 14 point ROS negative except per above HPI Objective Last 24 Hour Vital Signs Date Time Temp Pulse Resp B/P (MAP) Pulse Ox O2 Delivery O2 Flow Rate FiO2 06/25/18 08:00 97.5 119 22 173/109 (130) 95 06/25/18 04:00 97.9 106 20 163/76 (105) 95 06/25/18 04:00 107 06/25/18 00:26 184/96 06/25/18 00:00 98.0 103 19 184/96 (125) 94 06/25/18 00:00 101 06/24/18 21:00 Room Air 06/24/18 20:19 104 141/92 06/24/18 20:00 98.1 104 20 141/92 (108) 94 06/24/18 20:00 109 06/24/18 16:00 101 06/24/18 16:00 98.9 99 20 150/96 (114) 94 06/24/18 12:00 91 06/24/18 12:00 98.6 87 20 161/95 (117) 95 06/24/18 11:33 171/108 06/24/18 11:16 171/108 (129) 06/24/18 09:00 Room Air 06/24/18 08:46 94 183/114 Intake and Output 06/24/18 06/25/18 19:00 07:00 Intake Total 960 ml 800 ml Balance 960 ml 800 ml Intake Oral 860 ml IV Total 100 ml 800 ml # Voids 6 2 Laboratory Tests 06/24/18 08:45: White Blood Count 17.9#H, Red Blood Count 5.52, Hemoglobin 18.7*H, Hematocrit 54.3H, Mean Corpuscular Volume 98, Mean Corpuscular Hemoglobin 33.8H, Mean Corpuscular Hemoglobin Concent 34.4, Red Cell Distribution Width 11.5L, Platelet Count 175, Mean Platelet Volume 6.9, Neutrophils (%) (Auto) , Lymphocytes (%) (Auto) , Monocytes (%) (Auto) , Eosinophils (%) (Auto) , Basophils (%) (Auto) , Differential Total Cells Counted 100, Neutrophils % ( Manual) 91H, Lymphocytes % (Manual) 6L, Monocytes % (Manual) 3, Eosinophils % ( Manual) 0, Basophils % (Manual) 0, Band Neutrophils 0, Platelet Estimate Adequate, Platelet Morphology Normal, Red Blood Cell Morphology Normal, Sodium Level 141, Potassium Level 4.3, Chloride Level 102, Carbon Dioxide Level 29, Anion Gap 10, Blood Urea Nitrogen 22H, Creatinine 1.0, Estimat Glomerular Filtration Rate > 60, Glucose Level 107H, Calcium Level 10.4H Height (Feet): 6 Height (Inches): 0.00 Weight (Pounds): 200 Objective General Appearance: WD/WN, alert, mild distress Lines, tubes and drains: peripheral HEENT: normocephalic Neck: non-tender, normal alignment, supple, normal inspection Respiratory/Chest: chest wall non-tender, lungs clear, normal breath sounds, no respiratory distress, no accessory muscle use Cardiovascular/Chest: normal peripheral pulses, normal rate, regular rhythm Abdomen: no organomegaly, no mass, decreased bowel sounds, other - abdominal distention, mild ttp diffusely Extremities: normal range of motion, non-tender, normal inspection, no calf tenderness Skin Exam: normal pigmentation, warm/dry Neurologic: 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
[2018-06-25 08:40] LABS: HEMATOCRIT 54.1 % (42.0-52.0); MEAN CORPUSCULAR VOLUME 98 FL (80-99); PLATELET COUNT 133 K/UL (150-450); RED BLOOD COUNT 5.52 M/UL (4.70-6.10); RED CELL DISTRIBUTION WIDTH 11.5 % (11.6-14.8)
[2018-06-25] MEDS: Pantoprazole Inj IVP SCH (08:40)
[2018-06-25] MEDS: Cyclobenzaprine 10mg Tab ORAL SCH ×3 (08:41→18:07)
[2018-06-25] MEDS: Metoprolol 25mg tab ORAL SCH ×2 (08:41→20:49)
[2018-06-25] MEDS: Mineral Oil 30ml ud ORAL SCH (08:41)
[2018-06-25] MEDS: Heparin 5000 units/ml inj SUBQ SCH ×2 (08:43→20:55)
[2018-06-25 08:54] LABS: ANION GAP 14 mmol/L (5-15); BLOOD UREA NITROGEN 28 mg/dL (7-18); CALCIUM 10.8 MG/DL (8.5-10.1); CARBON DIOXIDE 23 MMOL/L (21-32); CHLORIDE 101 MMOL/L (98-107); CREATININE 1.2 MG/DL (0.55-1.30); POTASSIUM 3.8 MMOL/L (3.5-5.1); SODIUM 138 MMOL/L (136-145)
[2018-06-25] MEDS: Docusate 100mg cap ORAL SCH ×3 (08:54→18:07)
[2018-06-25] MEDS: TRIUMEQ ORAL SCH (08:54)
[2018-06-25 08:56] LABS: HEMOGLOBIN 18.8 G/DL (14.2-18.0); WHITE BLOOD COUNT 25.7 K/UL (4.8-10.8)
--- NOTE | 2018-06-25 10:40 | GI Progress Note ---
Assessment/Plan Problems: (1) Fecal impaction ICD Codes: K56.41 - Fecal impaction SNOMED: 81185001 (2) Dehydration ICD Codes: E86.0 - Dehydration SNOMED: 80262729 (3) Constipation ICD Codes: K59.00 - Constipation, unspecified SNOMED: 32880299 (4) Small bowel obstruction ICD Codes: K56.609 - Unspecified intestinal obstruction, unspecified as to partial versus complete obstruction SNOMED: 728383831 Status: stable, unchanged Status Narrative Discussed with Dr. Scanlon Assessment/Plan Abdominal pelvis CT reviewed, see full report>> * Trace bilateral pleural effusions and adjacent atelectasis/consolidation in the posterior lower lobes. Multifocal pneumonia not excludable. * Moderate colonic stool burden raising question for constipation. No evidence to suggest bowel obstruction at this time. Aggressive bowel regimen, will consider digital disimpaction if medical management fails -Patient refused digital disimpaction -We will add mineral oil x1, lactulose 3 times daily Maintain clear liquid diet + IVF, will advance when patient has bowel. PT evaluation turn q2 hours ambulate as tolerated fu labs outpatient procedures Subjective Subjective Denies any abdominal pain No reports of any BM Abdominal distention Tolerating clear liquid diet Objective Last 24 Hour Vital Signs Date Time Temp Pulse Resp B/P (MAP) Pulse Ox O2 Delivery O2 Flow Rate FiO2 06/25/18 08:41 119 173/109 06/25/18 08:00 97.5 119 22 173/109 (130) 95 06/25/18 04:00 97.9 106 20 163/76 (105) 95 06/25/18 04:00 107 06/25/18 00:26 184/96 06/25/18 00:00 98.0 103 19 184/96 (125) 94 06/25/18 00:00 101 06/24/18 21:00 Room Air 06/24/18 20:19 104 141/92 06/24/18 20:00 98.1 104 20 141/92 (108) 94 06/24/18 20:00 109 06/24/18 16:00 101 06/24/18 16:00 98.9 99 20 150/96 (114) 94 06/24/18 12:00 91 06/24/18 12:00 98.6 87 20 161/95 (117) 95 12/27/18 11:33 171/108 06/24/18 11:16 171/108 (129) Intake and Output 06/24/18 06/25/18 19:00 07:00 Intake Total 960 ml 800 ml Balance 960 ml 800 ml Intake Oral 860 ml IV Total 100 ml 800 ml # Voids 6 2 Laboratory Tests Test 06/25/18 08:05 06/25/18 10:10 White Blood Count 25.7 K/UL (4.8-10.8) *H Red Blood Count 5.52 M/UL (4.70-6.10) Hemoglobin 18.8 G/DL (14.2-18.0) *H Hematocrit 54.1 % (42.0-52.0) H Mean Corpuscular Volume 98 FL (80-99) Mean Corpuscular Hemoglobin 34.1 PG (27.0-31.0) H Mean Corpuscular Hemoglobin Concent 34.8 G/DL (32.0-36.0) Red Cell Distribution Width 11.5 % (11.6-14.8) L Platelet Count 133 K/UL (150-450) L Mean Platelet Volume 7.8 FL (6.5-10.1) Neutrophils (%) (Auto) % (45.0-75.0) Lymphocytes (%) (Auto) % (20.0-45.0) Monocytes (%) (Auto) % (1.0-10.0) Eosinophils (%) (Auto) % (0.0-3.0) Basophils (%) (Auto) % (0.0-2.0) Differential Total Cells Counted 100 Neutrophils % (Manual) 94 % (45-75) H Lymphocytes % (Manual) 1 % (20-45) L Monocytes % (Manual) 2 % (1-10) Eosinophils % (Manual) 0 % (0-3) Basophils % (Manual) 0 % (0-2) Band Neutrophils 3 % (0-8) Platelet Estimate Decreased L Platelet Morphology Normal Red Blood Cell Morphology Normal Sodium Level 138 MMOL/L (136-145) Potassium Level 3.8 MMOL/L (3.5-5.1) Chloride Level 101 MMOL/L (98-107) Carbon Dioxide Level 23 MMOL/L (21-32) Anion Gap 14 mmol/L (5-15) Blood Urea Nitrogen 28 mg/dL (7-18) H Creatinine 1.2 MG/DL (0.55-1.30) Estimat Glomerular Filtration Rate > 60 mL/min (>60) Glucose Level 138 MG/DL (74-106) H Calcium Level 10.8 MG/DL (8.5-10.1) H Lactic Acid Level Pending Height (Feet): 6 Height (Inches): 0.00 Weight (Pounds): 200 General Appearance: WD/WN, no apparent distress, alert Cardiovascular: normal rate Respiratory/Chest: normal breath sounds, no respiratory distress Abdominal Exam: normal bowel sounds, non tender, soft, distended Extremities: normal range of motion, non-tender Subha Villegas NP Jun 25, 2018 10:40
[2018-06-25] MEDS ORDERED: Fleet's Mineral Oil Enema RECTAL SCH (10:45)
--- NOTE | 2018-06-25 11:15 | NUR ---
06/25 @2522 CHECKED BACK TODAY WITH pt. pt STILL REFUSING MRI- CS
[2018-06-25 12:00] VITALS: BP 138/82
--- NOTE | 2018-06-25 13:49 | NUR ---
CASE MANAGEMENT:review 06/25/18 SI: SMALL BOWEL OBSTRUCTION. FECAL IMPACTION. ACUTE ABDOMINAL PAIN 98.0 103 19 184/96 94% ON RA WBC+25.7 PLT-133 LACTIC ACID+2.40 AND 3.10 IS: LACTULOSE PO TID IV MORPHINE Q4HRS IV PROTONIX QD LOPRESSOR PO Q12 HEPARIN SQ Q12 IVF@100/HR : TELEMETRY
[2018-06-25] MEDS: Lactulose 20gm/30ml UDC ORAL SCH ×2 (13:57→18:07)
--- NOTE | 2018-06-25 14:07 | NUR ---
INSURANCE REVIEW AND CLINICALS FAXED TO [facility] T: [phone] F: [phone] REF #[id number]
[2018-06-25 16:00] VITALS: BP 169/97
--- NOTE | 2018-06-25 17:37 | Cardiology Report ---
APPROVED REPORT EKG Measurement Heart [id number] HI [id number] [id number] Normal sinus rhythm Left axis deviation Abnormal ECG
[2018-06-25] MEDS: Piperacillin/Tazobactam 3.375 GM in D5W 110 ML IVPB SCH (18:18)
--- NOTE | 2018-06-25 19:18 | NUR ---
HAND-OFF: Report given to SHALOM Wolff.
--- NOTE | 2018-06-25 19:30 | NUR ---
NURSE NOTES: Report received from Whitney RAUSCH. Pt is sitting up at bedside in stable condition. Pt is awake, alert, and oriented x4. Pt is on room air and breathing is even and unlabored. No acute distress noted. IV site is asymptomatic, patent, and intact and running abx at rx rate. Bed is in lowest position with brake engaged, side rails up x2. Pt noted to be independently ambulatory with steady gait. Call light and side table are within reach. Will continue to monitor.
[2018-06-25 20:00] VITALS: BP 167/90
--- NOTE | 2018-06-25 20:25 | NUR ---
NURSE NOTES: Pt BP noted to be elevated to 167/90. Pt received PRN Hydralazine 10mg IVP Q6HR per orders for HTN at 1808. MD Giron notified and provided orders for clonidine 0.1mg PO ONCE. Orders noted and carried out.
[2018-06-25] MEDS: Tamsulosin 0.4mg cap ORAL SCH (20:49)
[2018-06-25] MEDS: Miralax 17gm pkt ORAL SCH (20:49)
[2018-06-26] VITALS: BP 157/101
[2018-06-26] MEDS: Piperacillin/Tazobactam 3.375 GM in D5W 110 ML IVPB SCH ×3 (00:51→16:13)
[2018-06-26 04:00] VITALS: BP 160/101
--- NOTE | 2018-06-26 06:57 | NUR ---
NURSE NOTES: Pt noted to be having ventricular bigeminy. MD Giron notified. Per MD, no cardiology consult at this time. Pt in stable condition. Will continue to monitor.
[2018-06-26 07:01] LABS: HEMATOCRIT 49.6 % (42.0-52.0); HEMOGLOBIN 17.8 G/DL (14.2-18.0); MEAN CORPUSCULAR VOLUME 95 FL (80-99); PLATELET COUNT 124 K/UL (150-450); RED BLOOD COUNT 5.21 M/UL (4.70-6.10); RED CELL DISTRIBUTION WIDTH 11.2 % (11.6-14.8)
[2018-06-26 07:03] LABS: WHITE BLOOD COUNT 27.4 K/UL (4.8-10.8)
--- NOTE | 2018-06-26 07:04 | NUR ---
NURSE NOTES: WBC elevated to 27.4. MD Giron notified. No new orders at this time. Pt in stable condition. Will continue to monitor.
--- NOTE | 2018-06-26 07:20 | NUR ---
NURSE NOTES: Pt c/o shortness of breath with a hx of asthma. Pt is tachypnic to 25 breaths per minutes. MD Giron notified. Per Mg US breathing tx Q4HR PRN for shortness of breath. Orders noted and carried out.
--- NOTE | 2018-06-26 07:21 | NUR ---
NURSE NOTES: Received report from SHALOM Wolff. Patient is in stable condition. Will continue plan of care.
--- NOTE | 2018-06-26 07:21 | NUR ---
HAND-OFF: Report given to Raza RAUSCH. Pt is resting in bed in stable condition. No acute distress noted. Endorsed plan of care.
[2018-06-26 07:32] LABS: ANION GAP 11 mmol/L (5-15); BLOOD UREA NITROGEN 30 mg/dL (7-18); CALCIUM 10.5 MG/DL (8.5-10.1); CARBON DIOXIDE 25 MMOL/L (21-32); CHLORIDE 100 MMOL/L (98-107); CREATININE 1.1 MG/DL (0.55-1.30); POTASSIUM 4.1 MMOL/L (3.5-5.1); SODIUM 136 MMOL/L (136-145)
[2018-06-26 08:00] VITALS: BP 160/90
[2018-06-26] MEDS: Metoprolol 25mg tab ORAL SCH ×2 (08:49→20:42)
[2018-06-26] MEDS: Lactulose 20gm/30ml UDC ORAL SCH ×3 (08:50→12:19)
[2018-06-26] MEDS: Mineral Oil 30ml ud ORAL SCH ×2 (08:50→09:00)
[2018-06-26] MEDS: Cyclobenzaprine 10mg Tab ORAL SCH ×3 (08:50→17:06)
[2018-06-26] MEDS: Docusate 100mg cap ORAL SCH ×3 (08:50→17:06)
[2018-06-26] MEDS: Pantoprazole Inj IVP SCH (08:50)
[2018-06-26] MEDS: Morphine Sulfate 4mg/ml Inj (IV/IM USE ONLY) IVP PRN ×2 (08:51→08:56)
[2018-06-26] MEDS: TRIUMEQ ORAL SCH (08:53)
[2018-06-26] MEDS: Heparin 5000 units/ml inj SUBQ SCH ×2 (09:00→20:43)
[2018-06-26 12:00] VITALS: BP 141/85
[2018-06-26] MEDS: Albuterol/Ipratropium 3ml neb HHN PRN ×2 (14:07→21:04)
--- NOTE | 2018-06-26 15:46 | General Progress Note ---
Assessment/Plan Assessment/Plan Assessment - constipation, distention - rising WBC concerning - lactate level concerning - ? ischemia Recommendations - make NPO - Hold PO laxatives - check KUB - surgical consultation - follow closely Subjective Allergies: Coded Allergies: No Known Allergies (Unverified , 06/23/18) Subjective Sitting in chair (+) BM feels better than yesterday tolerating PO clears WBC rising Objective Last 24 Hour Vital Signs Date Time Temp Pulse Resp B/P (MAP) Pulse Ox O2 Delivery O2 Flow Rate FiO2 06/26/18 14:16 118 20 97 Room Air 06/26/18 14:10 117 20 95 Room Air 06/26/18 14:10 117 20 Room Air 06/26/18 09:00 Room Air 06/26/18 08:49 100 160/90 06/26/18 08:00 98.1 100 20 160/90 (113) 94 06/26/18 08:00 134 06/26/18 04:24 160/101 06/26/18 04:00 117 06/26/18 04:00 97.0 117 24 160/101 (120) 94 06/26/18 00:00 115 06/26/18 00:00 99.5 106 20 157/101 (119) 94 06/25/18 21:00 Room Air 06/25/18 20:49 167/90 06/25/18 20:49 126 167/90 06/25/18 20:00 126 06/25/18 20:00 97.7 129 24 167/90 (115) 96 06/25/18 18:08 169/97 06/25/18 16:00 97.3 113 20 169/97 (121) 93 06/25/18 16:00 121 Intake and Output 06/25/18 06/26/18 19:00 07:00 Intake Total 850 ml Output Total 400 ml Balance 450 ml Intake Oral 850 ml Output Urine Total 400 ml # Voids 3 Laboratory Tests 06/26/18 05:45: White Blood Count 27.4*H, Red Blood Count 5.21, Hemoglobin 17.8, Hematocrit 49.6 , Mean Corpuscular Volume 95, Mean Corpuscular Hemoglobin 34.1H, Mean Corpuscular Hemoglobin Concent 35.8, Red Cell Distribution Width 11.2L, Platelet Count 124L, Mean Platelet Volume 8.0, Neutrophils (%) (Auto) , Lymphocytes (%) (Auto) , Monocytes (%) (Auto) , Eosinophils (%) (Auto) , Basophils (%) (Auto) , Differential Total Cells Counted 100, Neutrophils % ( Manual) 90H, Lymphocytes % (Manual) 1L, Monocytes % (Manual) 8, Eosinophils % ( Manual) 0, Basophils % (Manual) 0, Band Neutrophils 1, Platelet Estimate DecreasedL, Platelet Morphology Normal, Red Blood Cell Morphology Normal, Sodium Level 136, Potassium Level 4.1, Chloride Level 100, Carbon Dioxide Level 25, Anion Gap 11, Blood Urea Nitrogen 30H, Creatinine 1.1, Estimat Glomerular Filtration Rate > 60, Glucose Level 124H, Calcium Level 10.5H Height (Feet): 6 Height (Inches): 0.00 Weight (Pounds): 200 Objective WDWN WM NCAT supple CTA RRR Abd distended, somewhat firm but non tender, tympanitic no edema Chula Buchanan MD Jun 26, 2018 15:46
[2018-06-26 16:00] VITALS: BP 157/80
--- NOTE | 2018-06-26 17:03 | Diagnostic Imaging Report ---
EXAM: XR Abdomen, 1 View CLINICAL HISTORY: ABD DIST TECHNIQUE: Frontal supine view of the abdomen/pelvis. COMPARISON: No relevant prior studies available. FINDINGS: Gastrointestinal tract: Nonspecific bowel gas pattern with some colonic distention. Bones/joints: No acute fracture. Other findings: Opacification of the visualized portion of the right hemithorax. IMPRESSION: Nonspecific bowel gas pattern with some colonic distention.
[2018-06-26] MEDS ORDERED: Tubing IV Secondary IV ONE (17:30)
[2018-06-26] MEDS ORDERED: NS 275ml ONE (17:30)
--- NOTE | 2018-06-26 17:59 | General Progress Note ---
Assessment/Plan Assessment/Plan Abdominal pain, fecal impaction with worsening leukocytosis and lactic acidemia. Patient having bowel movements after treated with bowel cathartics but pain is increasing. No nausea or vomiting. Seen by GI today Patient was made NPO Spoke with Surgery who will evaluate Continue to monitor CBC and lactate levels Back pain at L4-L5 level Continue supportive care gabapentin cyclobenzaprine morphine 2mg IV q6hrs DEANNA (acute kidney injury), ruled out AIDS outpatient ID followup Subjective Date patient seen: Jun 26, 2018 Time patient seen: 14:45 ROS Limited/Unobtainable: No Constitutional: Denies: chills, fever Cardiovascular: Denies: chest pain, irregular heart rate Respiratory: Denies: cough, orthopnea Gastrointestinal/Abdominal: Reports: abdomen distended, abdominal pain Endocrine: Denies: excessive sweating, flushing Hematologic/Lymphatic: Denies: anemia Allergies: Coded Allergies: No Known Allergies (Unverified , 06/23/18) Subjective Medicine followup for fecal impaction - noted to have worsening leukocytosis, lactic acidosis and tenderness. KUB done today without free air. Objective Last 24 Hour Vital Signs Date Time Temp Pulse Resp B/P (MAP) Pulse Ox O2 Delivery O2 Flow Rate FiO2 06/26/18 16:00 98.3 117 25 157/80 (105) 97 06/26/18 16:00 120 06/26/18 14:16 118 20 97 Room Air 06/26/18 14:10 117 20 95 Room Air 06/26/18 14:10 117 20 Room Air 06/26/18 12:00 109 06/26/18 12:00 98.3 107 25 141/85 (103) 94 06/26/18 09:00 Room Air 06/26/18 08:49 100 160/90 06/26/18 08:00 98.1 100 20 160/90 (113) 94 06/26/18 08:00 134 06/26/18 04:24 160/101 06/26/18 04:00 117 06/26/18 04:00 97.0 117 24 160/101 (120) 94 06/26/18 00:00 115 06/26/18 00:00 99.5 106 20 157/101 (119) 94 06/25/18 21:00 Room Air 06/25/18 20:49 167/90 06/25/18 20:49 126 167/90 06/25/18 20:00 126 06/25/18 20:00 97.7 129 24 167/90 (115) 96 06/25/18 18:08 169/97 Intake and Output 06/25/18 06/26/18 19:00 07:00 Intake Total 850 ml Output Total 400 ml Balance 450 ml Intake Oral 850 ml Output Urine Total 400 ml # Voids 3 Laboratory Tests 06/26/18 05:45: White Blood Count 27.4*H, Red Blood Count 5.21, Hemoglobin 17.8, Hematocrit 49.6 , Mean Corpuscular Volume 95, Mean Corpuscular Hemoglobin 34.1H, Mean Corpuscular Hemoglobin Concent 35.8, Red Cell Distribution Width 11.2L, Platelet Count 124L, Mean Platelet Volume 8.0, Neutrophils (%) (Auto) , Lymphocytes (%) (Auto) , Monocytes (%) (Auto) , Eosinophils (%) (Auto) , Basophils (%) (Auto) , Differential Total Cells Counted 100, Neutrophils % ( Manual) 90H, Lymphocytes % (Manual) 1L, Monocytes % (Manual) 8, Eosinophils % ( Manual) 0, Basophils % (Manual) 0, Band Neutrophils 1, Platelet Estimate DecreasedL, Platelet Morphology Normal, Red Blood Cell Morphology Normal, Sodium Level 136, Potassium Level 4.1, Chloride Level 100, Carbon Dioxide Level 25, Anion Gap 11, Blood Urea Nitrogen 30H, Creatinine 1.1, Estimat Glomerular Filtration Rate > 60, Glucose Level 124H, Calcium Level 10.5H Height (Feet): 6 Height (Inches): 0.00 Weight (Pounds): 200 General Appearance: no apparent distress, alert Neck: normal alignment, supple Cardiovascular: normal rate, regular rhythm Respiratory/Chest: chest wall non-tender, lungs clear Abdomen: normal bowel sounds, soft, tender Extremities: normal range of motion, non-tender 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
[2018-06-26] MEDS ORDERED: Fleet's Enema 133ml RECTAL SCH (18:00)
--- NOTE | 2018-06-26 19:15 | NUR ---
NURSE NOTES: Report received from SHALOM Duque. Pt A/ox4, Currently on room air and breathing is even and unlabored. No acute respiratory or cardiac distress noted. IV site is asymptomatic, patent, and intact LFA 20 gauge with NS running at 125 ml/hr. Bed is in lowest position with brake engaged, side rails up x2. Pt noted to be independently ambulatory with steady gait. Call light and side table are within reach. Will continue to monitor.
--- NOTE | 2018-06-26 19:18 | Infectious Diseases Prog Note ---
Assessment/Plan Assessment/Plan Full consult dictated: A) 1) sepsis, leukocytosis, fevers, elevated lactic acid 2) constipation, no obvious bowel obstruction on imaging noted 3) allergies - nkda 4) hx hiv/aids - on triumeq 5) back pain P) 1) zosyn 2) check culture, labs 3) surgery consult, GI f/u 4) monitor labs/wbc 5) thank you Subjective Allergies: Coded Allergies: No Known Allergies (Unverified , 06/23/18) Objective Vital Signs Last 24 Hour Vital Signs Date Time Temp Pulse Resp B/P (MAP) Pulse Ox O2 Delivery O2 Flow Rate FiO2 06/26/18 16:00 98.3 117 25 157/80 (105) 97 06/26/18 16:00 120 06/26/18 14:16 118 20 97 Room Air 06/26/18 14:10 117 20 95 Room Air 06/26/18 14:10 117 20 Room Air 06/26/18 12:00 109 06/26/18 12:00 98.3 107 25 141/85 (103) 94 06/26/18 09:00 Room Air 06/26/18 08:49 100 160/90 06/26/18 08:00 98.1 100 20 160/90 (113) 94 06/26/18 08:00 134 06/26/18 04:24 160/101 06/26/18 04:00 117 06/26/18 04:00 97.0 117 24 160/101 (120) 94 06/26/18 00:00 115 06/26/18 00:00 99.5 106 20 157/101 (119) 94 06/25/18 21:00 Room Air 06/25/18 20:49 167/90 06/25/18 20:49 126 167/90 06/25/18 20:00 126 06/25/18 20:00 97.7 129 24 167/90 (115) 96 Height (Feet): 6 Height (Inches): 0.00 Weight (Pounds): 200 Laboratory Tests Test 06/26/18 05:45 White Blood Count 27.4 K/UL (4.8-10.8) *H Red Blood Count 5.21 M/UL (4.70-6.10) Hemoglobin 17.8 G/DL (14.2-18.0) Hematocrit 49.6 % (42.0-52.0) Mean Corpuscular Volume 95 FL (80-99) Mean Corpuscular Hemoglobin 34.1 PG (27.0-31.0) H Mean Corpuscular Hemoglobin Concent 35.8 G/DL (32.0-36.0) Red Cell Distribution Width 11.2 % (11.6-14.8) L Platelet Count 124 K/UL (150-450) L Mean Platelet Volume 8.0 FL (6.5-10.1) Neutrophils (%) (Auto) % (45.0-75.0) Lymphocytes (%) (Auto) % (20.0-45.0) Monocytes (%) (Auto) % (1.0-10.0) Eosinophils (%) (Auto) % (0.0-3.0) Basophils (%) (Auto) % (0.0-2.0) Differential Total Cells Counted 100 Neutrophils % (Manual) 90 % (45-75) H Lymphocytes % (Manual) 1 % (20-45) L Monocytes % (Manual) 8 % (1-10) Eosinophils % (Manual) 0 % (0-3) Basophils % (Manual) 0 % (0-2) Band Neutrophils 1 % (0-8) Platelet Estimate Decreased L Platelet Morphology Normal Red Blood Cell Morphology Normal Sodium Level 136 MMOL/L (136-145) Potassium Level 4.1 MMOL/L (3.5-5.1) Chloride Level 100 MMOL/L (98-107) Carbon Dioxide Level 25 MMOL/L (21-32) Anion Gap 11 mmol/L (5-15) Blood Urea Nitrogen 30 mg/dL (7-18) H Creatinine 1.1 MG/DL (0.55-1.30) Estimat Glomerular Filtration Rate > 60 mL/min (>60) Glucose Level 124 MG/DL (74-106) H Calcium Level 10.5 MG/DL (8.5-10.1) H Current Medications Medications (Trade) Dose Ordered Sig/Mitzi Route PRN Reason Start Time Stop Time Status Last Admin Dose Admin Albuterol/ Ipratropium (Albuterol/ Ipratropium) 3 ml Q4H PRN HHN Shortness of Breath 06/26/18 07:30 07/01/18 07:29 06/26/18 14:07 Cyclobenzaprine HCl (Flexeril) 10 mg THREE TIMES A DAY ORAL 06/23/18 20:30 07/23/18 20:29 06/26/18 17:06 Docusate Sodium (Colace) 100 mg THREE TIMES A DAY ORAL 06/23/18 18:00 07/23/18 17:59 06/26/18 17:06 Gabapentin (Neurontin) 300 mg BID ORAL 06/23/18 20:30 07/23/18 20:29 06/26/18 17:06 Heparin Sodium (Porcine) (Heparin 5000 units/ml) 5,000 units EVERY 12 HOURS SUBQ 06/23/18 21:00 07/23/18 20:59 06/25/18 20:55 Hydralazine HCl (Apresoline) 10 mg Q6H PRN IV For High Blood Pressure 06/23/18 21:30 07/23/18 21:29 06/26/18 04:24 Metoprolol Tartrate (Lopressor) 25 mg Q12HR ORAL 06/23/18 21:00 07/23/18 20:59 06/26/18 08:49 Morphine Sulfate (Morphine Sulfate) 2 mg Q4H PRN IVP For Pain 06/24/18 21:30 07/01/18 21:29 06/26/18 08:56 Ondansetron HCl (Zofran) 4 mg Q6H PRN IVP Nausea & Vomiting 06/23/18 19:00 07/23/18 18:59 06/24/18 13:43 Pantoprazole (Protonix) 40 mg DAILY IVP 06/24/18 09:00 07/24/18 08:59 06/26/18 08:50 Patient Own Medication (Patient's Own Med) 1 ea DAILY ORAL 06/24/18 17:00 07/24/18 16:59 06/26/18 08:53 Piperacillin Sod/ Tazobactam Sod 3.375 gm/Dextrose 110 ml @ 27.5 mls/hr Q8H IVPB 06/25/18 17:00 07/02/18 16:59 06/26/18 16:13 Sodium Chloride 1,000 ml @ 125 mls/hr Q8H IV 06/26/18 16:00 07/26/18 15:59 12/29/18 15:59 Sodium Phosphate (Fleet's Sodium Phosl Enema) 133 ml ONCE RECTAL 06/26/18 18:00 06/26/18 19:30 06/26/18 18:12 Tamsulosin HCl (Flomax) 0.4 mg BEDTIME ORAL 06/23/18 21:00 07/23/18 20:59 06/25/18 20:49 Abhinav Browne MD Jun 26, 2018 19:18
--- NOTE | 2018-06-26 19:19 | NUR ---
HAND-OFF: Report given to SHALOM Pryor. Patient is in stable condition. No acute distress/SOB noted. Endorsed plan of care.
[2018-06-26 20:00] VITALS: BP 150/79
[2018-06-26] MEDS: Tamsulosin 0.4mg cap ORAL SCH (20:41)
--- NOTE | 2018-06-26 21:13 | NUR ---
RESPIRATORY THERAPY RN called for breathing tx PRN. SaO2 912, HR 114. Stopped tx due to HR went up to 143. SHALOM Cain notified. Suggested to changed Duoneb to Xopanex.
[2018-06-27] VITALS (8 sets, daily range): BP systolic 129–170; BP diastolic 78–107
[2018-06-27] MEDS: Piperacillin/Tazobactam 3.375 GM in D5W 110 ML IVPB SCH ×3 (00:49→16:28)
--- NOTE | 2018-06-27 01:45 | Consultation ---
DATE OF CONSULTATION: 06/26/2018 INFECTIOUS DISEASE CONSULTATION CONSULTING PHYSICIAN: Abhinav Browne M.D. ATTENDING PHYSICIAN: Matias Hardy M.D. REFERRING PHYSICIAN: Dudley Giron M.D. REASON FOR CONSULTATION: Worsening leukocytosis, sepsis, fevers, concern for bowel obstruction, history of human immunodeficiency virus and acquired immune deficiency syndrome per the records. CHIEF COMPLAINT: The patient's chief complaint coming in to the hospital is small bowel obstruction. HISTORY OF PRESENT ILLNESS: This is a very pleasant 62-year-old male, who comes in to [facility] and was noted that he had low back pain and abdominal pain. The patient has been taking pain medications. The patient came in with diffuse abdominal pain. A CT scan of the abdomen and pelvis showed the following. It showed effusions, atelectasis, and consolidations. It showed moderate colonic stool burden concerning for constipation. No evidence of bowel obstruction, however. The patient now has worsening leukocytosis. He did have an elevated temperature in the beginning of the admission at 99.9, now he is afebrile. His white count, however, has increased to 27.4, although initially it was 11.7. Infectious Disease consultation is requested for antibiotic management. Of note, the patient was noted to have an elevated lactic acid also. The patient is currently on appropriate antimicrobial therapy with Zosyn. MAR was noted. Orders were noted. Notes and records were reviewed. Per the records, he also has history of human immunodeficiency virus and documented history of acquired immune deficiency syndrome. He is on Triumeq anti-retroviral therapy. REVIEW OF SYSTEMS: CONSTITUTIONAL: He has generalized fatigue. No fever or chills. HEAD AND NECK: No head pain or neck pain. CARDIAC: No chest pain. GASTROINTESTINAL: He has abdominal pain and distention. GENITOURINARY: No Teran. No dysuria or frequency. PULMONARY: No congestion or shortness of breath. SKIN: No rash or itching. EXTREMITIES: No extremity pain. He has back pain. NEUROLOGIC: No seizures. PAST MEDICAL HISTORY: The patient's past medical history includes the following. He has a history of human immunodeficiency virus and acquired immune deficiency syndrome per the records. He is on Triumeq. He is taking his own medication. He has a history of back pain. He was taking pain medications for it. He has a history of acute kidney injury and history of dehydration. MEDICATIONS: He is on intravenous fluids, Zosyn, morphine. He is taking Triumeq for his anti-retroviral therapy. He is taking his own medications. He is on pantoprazole, hydralazine, metoprolol, heparin, tamsulosin, cyclobenzaprine, , and Zofran. Outside medications were noted and reconciliated. ALLERGIES: No known drug allergies. SOCIAL HISTORY: Negative for smoking, alcohol, or drug abuse. FAMILY HISTORY: Noncontributory. PHYSICAL EXAMINATION: VITAL SIGNS: Temperature 98.3, pulse rate 120, respiratory rate 25, blood pressure 157/80, and saturation 97%. T-max 99.9 on admission. GENERAL: Alert, responsive, and in no distress. HEAD AND NECK: Oral exam, no thrush. Eye exam, no icterus. Neck is supple. No jugular venous distention. Normocephalic. LUNGS: Clear bilaterally. No rhonchi or rales. HEART: Regular. No gallop or murmur. ABDOMEN: Seems to be softer he says compared to admission, but still somewhat tense and distended. Decreased bowel sounds. SKIN: No rash. MUSCULOSKELETAL: No effusion. Legs are without cellulitis. PERIPHERAL VASCULAR: No cyanosis. GENITOURINARY: No Teran. NEUROLOGIC: Intact. LINE SITES: Without phlebitis. LABORATORY DATA: Laboratory data is as follows. Creatinine 1.1. White count 27.4 and hemoglobin 17.8. Urinalysis, had only 2 to 4 white blood cells. Cultures have been ordered including blood cultures. White cell count previously was 11.7. Creatinine 1.1. Lactic acid level is 10.5. IMAGING STUDIES: KUB or abdominal x-ray from today showed nonspecific colonic distention. A CT scan of the abdomen and pelvis showed trace effusions and atelectasis versus consolidation in the bases with moderate colonic stool burden raising concern for constipation. No obvious bowel obstruction. ASSESSMENT AND PLAN: 1. The patient seems like he has possible sepsis with elevated lactic acid level, worsening leukocytosis, and history of fevers. Most likely source will be gastrointestinal. The patient on CT scan shows no obvious bowel obstruction, most recent CT. We will continue Zosyn for broad-spectrum antibiotic coverage including excellent gastrointestinal coverage including anaerobes and gram negatives. Check followup chest x-ray. Blood cultures were ordered. UA is unremarkable. Continue Zosyn and Surgery will be consulted and GI is following. The patient does have on imaging what looks like constipation. May need disimpaction. Continue Zosyn for now. Check followup chest x-ray, laboratories, and cultures. Monitor the patient closely. Monitor lactic acid and leukocytosis. 2. History of human immunodeficiency virus and acquired immune deficiency syndrome. Check CD4 and viral load. Continue Triumeq. 3. Back pain. The patient was on pain medications. 4. Questionable history of hypertension. He has elevated blood pressure. 5. History of acute kidney injury. Creatinine seems to be stable 6. Dehydration. On intravenous fluids. 7. No known allergies. 8. Social history is negative. 9. Family history is noncontributory. 10. MAR was noted. 11. Case was discussed with RN. 12. Case was discussed with primary care team. Abhinav Browne M.D. DR: ORAL JOB#: [id number] CC: [id number]
--- NOTE | 2018-06-27 07:05 | NUR ---
NURSE NOTES: Received report from SHALOM Cain. Patient is sitting on chair and in stable condition. No acute distress/SOB noted. Patient denies any pain/discomfort. Will continue plan of care.
[2018-06-27 08:34] LABS: HEMOGLOBIN 17.9 G/DL (14.2-18.0); MEAN CORPUSCULAR VOLUME 96 FL (80-99); PLATELET COUNT 172 K/UL (150-450); RED BLOOD COUNT 5.32 M/UL (4.70-6.10); RED CELL DISTRIBUTION WIDTH 11.5 % (11.6-14.8)
[2018-06-27 08:36] LABS: WHITE BLOOD COUNT 22.1 K/UL (4.8-10.8)
[2018-06-27 08:38] LABS: INR 1.3 (0.9-1.1)
--- NOTE | 2018-06-27 08:39 | Diagnostic Imaging Report ---
EXAM: XR Abdomen, 1 View CLINICAL HISTORY: F/U TECHNIQUE: Frontal supine view of the abdomen/pelvis. COMPARISON: 06/26/18 FINDINGS: Gastrointestinal tract: Unremarkable bowel gas pattern. Bones/joints: No acute fracture. Other findings: Complete opacification of the visualized portion of the right lower hemithorax. IMPRESSION: Unremarkable bowel gas pattern.
--- NOTE | 2018-06-27 08:42 | Diagnostic Imaging Report ---
EXAM: XR Chest, 1 View CLINICAL HISTORY: INFECT TECHNIQUE: Frontal view of the chest. COMPARISON: No relevant prior studies available. FINDINGS: Lungs: Near complete opacification of the right hemithorax. Mild patchy infiltrate in the left lung base Pleural space: No pneumothorax. Heart: Cardiomegaly. Mediastinum: Unremarkable. Bones/joints: No acute fracture. IMPRESSION: Near complete opacification of the right hemithorax, likely on the basis of effusion +/- pulmonary parenchymal disease.
[2018-06-27] MEDS: Docusate 100mg cap ORAL SCH ×3 (09:06→17:07)
[2018-06-27] MEDS: Metoprolol 25mg tab ORAL SCH ×2 (09:06→21:36)
[2018-06-27] MEDS: TRIUMEQ ORAL SCH (09:06)
[2018-06-27] MEDS: Pantoprazole Inj IVP SCH (09:06)
[2018-06-27] MEDS: Cyclobenzaprine 10mg Tab ORAL SCH ×3 (09:07→17:07)
[2018-06-27] MEDS: Heparin 5000 units/ml inj SUBQ SCH ×2 (09:19→21:00)
[2018-06-27 09:24] LABS: ALANINE AMINOTRANSFERASE 33 U/L (12-78); ALBUMIN 3.1 G/DL (3.4-5.0); ALKALINE PHOSPHATASE 79 U/L (46-116); ANION GAP 12 mmol/L (5-15); ASPARTATE AMINO TRANSFERASE 30 U/L (15-37); BILIRUBIN,TOTAL 1.4 MG/DL (0.2-1.0); BLOOD UREA NITROGEN 27 mg/dL (7-18); CALCIUM 10.2 MG/DL (8.5-10.1); CARBON DIOXIDE 25 MMOL/L (21-32); CHLORIDE 104 MMOL/L (98-107); CREATININE 1.2 MG/DL (0.55-1.30); POTASSIUM 3.8 MMOL/L (3.5-5.1); SODIUM 140 MMOL/L (136-145)
[2018-06-27 09:25] LABS: BILIRUBIN,DIRECT 0.6 MG/DL (0.0-0.3)
[2018-06-27] MEDS ORDERED: Ipratropium 0.02% Inh Soln 2.5ml UD HHN PRN (09:45)
--- NOTE | 2018-06-27 12:14 | General Progress Note ---
Assessment/Plan Assessment/Plan #Abdominal pain, fecal impaction.Having bowel movements, no abdominal pain, nausea or vomiting per patient. #Possible sepsis, leukocytosis and lactate improved. CRP markedly elevated at 20 Continue NPO status Sugery eval pending ID eval appreciated, Continue Zosyn Continue to monitor CBC and lactate levels Back pain at L4-L5 level Continue supportive care gabapentin cyclobenzaprine morphine 2mg IV q6hrs DEANNA (acute kidney injury), ruled out AIDS ID eval appreciated Subjective Date patient seen: Jun 27, 2018 Time patient seen: 09:00 ROS Limited/Unobtainable: No Constitutional: Denies: chills Cardiovascular: Denies: chest pain Respiratory: Denies: cough Gastrointestinal/Abdominal: Denies: abdomen distended, abdominal pain Genitourinary: Denies: burning Neurologic/Psychiatric: Denies: anxiety Endocrine: Denies: excessive sweating Hematologic/Lymphatic: Denies: anemia Allergies: Coded Allergies: No Known Allergies (Unverified , 06/23/18) Subjective Medicine followup for fecal impaction - possible sepsis. He continues to have bowel movements. No abdominal pain or distension. Objective Last 24 Hour Vital Signs Date Time Temp Pulse Resp B/P (MAP) Pulse Ox O2 Delivery O2 Flow Rate FiO2 06/27/18 10:49 98.2 104 23 146/93 (110) 95 06/27/18 09:06 123 170/107 06/27/18 09:00 Room Air 06/27/18 08:00 98.7 123 25 170/107 (128) 94 06/27/18 08:00 125 06/27/18 04:00 128 06/27/18 04:00 98.6 120 22 165/91 (115) 94 06/27/18 00:00 110 06/27/18 00:00 100.1 118 24 129/80 (96) 94 06/26/18 21:10 143 20 97 Room Air 06/26/18 21:04 117 20 92 Room Air 06/26/18 21:00 Room Air 06/26/18 20:42 139 150/79 06/26/18 20:00 146 06/26/18 20:00 97.5 109 22 150/79 (102) 94 06/26/18 16:00 98.3 117 25 157/80 (105) 97 06/26/18 16:00 120 06/26/18 14:16 118 20 97 Room Air 06/26/18 14:10 117 20 95 Room Air 06/26/18 14:10 117 20 Room Air Intake and Output 06/26/18 06/27/18 19:00 07:00 Intake Total 200 ml Output Total 100 ml 1100 ml Balance 100 ml -1100 ml Intake Oral 200 ml Output Urine Total 100 ml 1100 ml # Voids 3 Laboratory Tests 06/27/18 08:05: White Blood Count [Pending], Red Blood Count 5.32, Hemoglobin 17.9, Hematocrit 51.0, Mean Corpuscular Volume 96, Mean Corpuscular Hemoglobin 33.7H, Mean Corpuscular Hemoglobin Concent 35.2, Red Cell Distribution Width 11.5L, Platelet Count 172, Mean Platelet Volume 8.3, Neutrophils (%) (Auto) , Lymphocytes (%) (Auto) , Monocytes (%) (Auto) , Eosinophils (%) (Auto) , Basophils (%) (Auto) , Differential Total Cells Counted 100, Neutrophils % ( Manual) 89H, Lymphocytes % (Manual) 7L, Monocytes % (Manual) 3, Eosinophils % ( Manual) 1, Basophils % (Manual) 0, Band Neutrophils 0, Lymphocytes [Pending], Platelet Estimate Adequate, Platelet Morphology Normal, Red Blood Cell Morphology Normal, Erythrocyte Sedimentation Rate 5, Prothrombin Time 14.0H, Prothromb Time International Ratio 1.3H, Activated Partial Thromboplast Time 35H , Sodium Level 140, Potassium Level 3.8, Chloride Level 104, Carbon Dioxide Level 25, Anion Gap 12, Blood Urea Nitrogen 27H, Creatinine 1.2, Estimat Glomerular Filtration Rate > 60, Glucose Level 103, Lactic Acid Level 1.40, Calcium Level 10.2H, Total Bilirubin 1.4H, Direct Bilirubin 0.6H, Aspartate Amino Transf (AST/SGOT) 30, Alanine Aminotransferase (ALT/SGPT) 33, Alkaline Phosphatase 79, C-Reactive Protein, Quantitative 20.2H, Total Protein 6.3L, Albumin 3.1L, Globulin 3.2, Albumin/Globulin Ratio 1.0, Amylase Level 19L, Lipase 97, Percent CD3 Cells [Pending], Absolute CD3 Count [Pending], Percent CD4 Cells [Pending], Absolute CD4 Count [Pending], T-Lymphocyte CD4/CD8 Ratio [ Pending], Percent CD8 Cells [Pending], Absolute CD8 Count [Pending], HIV-1 RNA ( PCR) log10 Value [Pending], HIV-1 RNA Ultraquantitative (PCR) [Pending] Height (Feet): 6 Height (Inches): 0.00 Weight (Pounds): 200 General Appearance: no apparent distress, alert EENT: PERRL/EOMI, normal ENT inspection Neck: non-tender, normal alignment Cardiovascular: normal rate, regular rhythm Respiratory/Chest: chest wall non-tender, lungs clear, normal breath sounds Abdomen: normal bowel sounds, non tender, soft Neurologic: shoulder boner II-XII grossly normal, no motor/sensory deficits, alert, oriented x 3 Sam Moran MD Jun 27, 2018 12:14
--- NOTE | 2018-06-27 16:42 | General Progress Note ---
Assessment/Plan Assessment/Plan Assessment - constipation, resolved - Elevated WBC concerning - lactate level concerning - but now normal - No clear serious abdominal pathology identifiable - HIV Recommendations - clears OK - KUB noted - NSBGP - surgical consultation pending - follow closely - Repeat LFT Subjective Allergies: Coded Allergies: No Known Allergies (Unverified , 06/23/18) Subjective Sitting in chair (+) BM feels better than yesterday still no abd pain Objective Last 24 Hour Vital Signs Date Time Temp Pulse Resp B/P (MAP) Pulse Ox O2 Delivery O2 Flow Rate FiO2 06/27/18 16:00 98.6 124 22 156/93 (114) 94 06/27/18 13:24 98.7 120 26 164/78 (106) 95 06/27/18 12:15 170/97 06/27/18 12:00 98.7 102 26 170/97 (121) 95 06/27/18 12:00 112 06/27/18 10:49 98.2 104 23 146/93 (110) 95 06/27/18 09:06 123 170/107 06/27/18 09:00 Room Air 06/27/18 08:00 98.7 123 25 170/107 (128) 94 06/27/18 08:00 125 06/27/18 04:00 128 06/27/18 04:00 98.6 120 22 165/91 (115) 94 06/27/18 00:00 110 06/27/18 00:00 100.1 118 24 129/80 (96) 94 06/26/18 21:10 143 20 97 Room Air 06/26/18 21:04 117 20 92 Room Air 06/26/18 21:00 Room Air 06/26/18 20:42 139 150/79 06/26/18 20:00 146 06/26/18 20:00 97.5 109 22 150/79 (102) 94 Intake and Output 06/26/18 06/27/18 19:00 07:00 Intake Total 200 ml Output Total 100 ml 1100 ml Balance 100 ml -1100 ml Intake Oral 200 ml Output Urine Total 100 ml 1100 ml # Voids 3 Laboratory Tests 06/27/18 08:05: White Blood Count [Pending], Red Blood Count 5.32, Hemoglobin 17.9, Hematocrit 51.0, Mean Corpuscular Volume 96, Mean Corpuscular Hemoglobin 33.7H, Mean Corpuscular Hemoglobin Concent 35.2, Red Cell Distribution Width 11.5L, Platelet Count 172, Mean Platelet Volume 8.3, Neutrophils (%) (Auto) , Lymphocytes (%) (Auto) , Monocytes (%) (Auto) , Eosinophils (%) (Auto) , Basophils (%) (Auto) , Differential Total Cells Counted 100, Neutrophils % ( Manual) 89H, Lymphocytes % (Manual) 7L, Monocytes % (Manual) 3, Eosinophils % ( Manual) 1, Basophils % (Manual) 0, Band Neutrophils 0, Lymphocytes [Pending], Platelet Estimate Adequate, Platelet Morphology Normal, Red Blood Cell Morphology Normal, Erythrocyte Sedimentation Rate 5, Prothrombin Time 14.0H, Prothromb Time International Ratio 1.3H, Activated Partial Thromboplast Time 35H , Sodium Level 140, Potassium Level 3.8, Chloride Level 104, Carbon Dioxide Level 25, Anion Gap 12, Blood Urea Nitrogen 27H, Creatinine 1.2, Estimat Glomerular Filtration Rate > 60, Glucose Level 103, Lactic Acid Level 1.40, Calcium Level 10.2H, Total Bilirubin 1.4H, Direct Bilirubin 0.6H, Aspartate Amino Transf (AST/SGOT) 30, Alanine Aminotransferase (ALT/SGPT) 33, Alkaline Phosphatase 79, C-Reactive Protein, Quantitative 20.2H, Total Protein 6.3L, Albumin 3.1L, Globulin 3.2, Albumin/Globulin Ratio 1.0, Amylase Level 19L, Lipase 97, Percent CD3 Cells [Pending], Absolute CD3 Count [Pending], Percent CD4 Cells [Pending], Absolute CD4 Count [Pending], T-Lymphocyte CD4/CD8 Ratio [ Pending], Percent CD8 Cells [Pending], Absolute CD8 Count [Pending], HIV-1 RNA ( PCR) log10 Value [Pending], HIV-1 RNA Ultraquantitative (PCR) [Pending] Height (Feet): 6 Height (Inches): 0.00 Weight (Pounds): 200 Objective WDWN WM NCAT supple CTA RRR Abd distended, softer than yesterday no edema Chula Buchanan MD Jun 27, 2018 16:42
--- NOTE | 2018-06-27 16:47 | NUR ---
CASE MANAGEMENT: REVIEW 06/26/18 SI: SMALL BOWEL OBSTRUCTION. FECAL IMPACTION. ACUTE ABDOMINAL PAIN T 97.5 HR 146 RR 22 B/P 150/79 SATS 97% ON RA WBC 27.4 PLT 124 BUN 30 GLUCOSE 124 CA 10.5 IS: LACTULOSE PO TID IV MORPHINE Q4HRS IV PROTONIX QD LOPRESSOR PO Q12H HEPARIN SUBQ Q12H IVF@100 mL/HR : TELEMETRY 06/27/18 SI: SMALL BOWEL OBSTRUCTION. FECAL IMPACTION. ACUTE ABDOMINAL PAIN T 98.6 HR 124 RR 22 B/P 156/93 SATS 94% ON RA WBC 22.1 BUN 27 CA 10.2 TBILI 1.4 DBILI 0.6 IS: LACTULOSE PO TID IV MORPHINE Q4HRS IV PROTONIX QD LOPRESSOR PO Q12H HEPARIN SUBQ Q12H IVF@100 mL/HR : TELEMETRY
--- NOTE | 2018-06-27 17:37 | Consultation ---
History of Present Illness General Date patient seen: Jun 27, 2018 Chief Complaint: Pain Referring physician: JEAN PAUL UMANZOR Reason for Consultation: SBO Present Illness HPI 62 year old male with multiple medical comorbidities presented with low back pain and since developed abdominal pain. States abd pain generalized 8/10 bloating that happens intermittent but was worse for past 2-3 days. pain cramping bloated feeling. no n/v/f/c. worsening leukocytosis and lactic acid. concerns for bowel pathology or sbo. surgery called to evaluate. patient seen , chart reviewed, patient examined. states improved today. Allergies: Coded Allergies: No Known Allergies (Unverified , 06/23/18) Medication History Scheduled Cyclobenzaprine Hcl* (Flexeril*), 10 MG ORAL THREE TIMES A DAY, (Reported) Gabapentin* (Gabapentin*), 300 MG ORAL BID, (Reported) Naproxen* (Naproxen*), 500 MG ORAL TWICE A DAY, (Reported) Tamsulosin Hcl (Tamsulosin Hcl*), 0.4 MG ORAL BEDTIME, (Reported) Scheduled PRN Tramadol Hcl* (Ultram*), 50 MG ORAL Q6H PRN for For Pain, (Reported) Miscellaneous Medications [trumac], (Reported) Patient History History Provided By: Patient, Medical Record, PMD Healthcare decision maker Resuscitation status Do Not Resuscitate Advanced Directive on File Past Medical/Surgical History Past Medical/Surgical History: (1) Shortness of breath (2) Pain (3) Back muscle spasm (4) Acute abdominal pain (5) Fecal impaction (6) Back pain at L4-L5 level (7) Dehydration (8) DEANNA (acute kidney injury) (9) Small bowel obstruction (10) AIDS (11) HIV (human immunodeficiency virus infection) (12) Constipation Review of Systems All Other Systems: negative except mentioned in HPI Physical Exam General Appearance: no apparent distress, alert Lines, tubes and drains: peripheral HEENT: mucous membranes moist Neck: normal inspection Respiratory/Chest: normal breath sounds, no respiratory distress Cardiovascular/Chest: regular rhythm Abdomen: soft, no organomegaly, no mass, distended, tender, other Extremities: normal inspection Skin Exam: warm/dry Neurologic: alert, responsive Last 24 Hour Vital Signs Date Time Temp Pulse Resp B/P (MAP) Pulse Ox O2 Delivery O2 Flow Rate FiO2 06/27/18 16:00 122 06/27/18 16:00 98.6 124 22 156/93 (114) 94 06/27/18 13:24 98.7 120 26 164/78 (106) 95 06/27/18 12:15 170/97 06/27/18 12:00 98.7 102 26 170/97 (121) 95 06/27/18 12:00 112 06/27/18 10:49 98.2 104 23 146/93 (110) 95 06/27/18 09:06 123 170/107 06/27/18 09:00 Room Air 06/27/18 08:00 98.7 123 25 170/107 (128) 94 06/27/18 08:00 125 06/27/18 04:00 128 06/27/18 04:00 98.6 120 22 165/91 (115) 94 06/27/18 00:00 110 06/27/18 00:00 100.1 118 24 129/80 (96) 94 06/26/18 21:10 143 20 97 Room Air 06/26/18 21:04 117 20 92 Room Air 06/26/18 21:00 Room Air 06/26/18 20:42 139 150/79 06/26/18 20:00 146 06/26/18 20:00 97.5 109 22 150/79 (102) 94 Intake and Output 06/26/18 06/27/18 19:00 07:00 Intake Total 200 ml Output Total 100 ml 1100 ml Balance 100 ml -1100 ml Intake Oral 200 ml Output Urine Total 100 ml 1100 ml # Voids 3 Laboratory Tests Test 06/27/18 08:05 White Blood Count Pending Red Blood Count 5.32 M/UL (4.70-6.10) Hemoglobin 17.9 G/DL (14.2-18.0) Hematocrit 51.0 % (42.0-52.0) Mean Corpuscular Volume 96 FL (80-99) Mean Corpuscular Hemoglobin 33.7 PG (27.0-31.0) H Mean Corpuscular Hemoglobin Concent 35.2 G/DL (32.0-36.0) Red Cell Distribution Width 11.5 % (11.6-14.8) L Platelet Count 172 K/UL (150-450) Mean Platelet Volume 8.3 FL (6.5-10.1) Neutrophils (%) (Auto) % (45.0-75.0) Lymphocytes (%) (Auto) % (20.0-45.0) Monocytes (%) (Auto) % (1.0-10.0) Eosinophils (%) (Auto) % (0.0-3.0) Basophils (%) (Auto) % (0.0-2.0) Differential Total Cells Counted 100 Neutrophils % (Manual) 89 % (45-75) H Lymphocytes % (Manual) 7 % (20-45) L Monocytes % (Manual) 3 % (1-10) Eosinophils % (Manual) 1 % (0-3) Basophils % (Manual) 0 % (0-2) Band Neutrophils 0 % (0-8) Lymphocytes Pending Platelet Estimate Adequate Platelet Morphology Normal Red Blood Cell Morphology Normal Erythrocyte Sedimentation Rate 5 MM/HR (0-20) Prothrombin Time 14.0 SEC (9.30-11.50) H Prothromb Time International Ratio 1.3 (0.9-1.1) H Activated Partial Thromboplast Time 35 SEC (23-33) H Sodium Level 140 MMOL/L (136-145) Potassium Level 3.8 MMOL/L (3.5-5.1) Chloride Level 104 MMOL/L (98-107) Carbon Dioxide Level 25 MMOL/L (21-32) Anion Gap 12 mmol/L (5-15) Blood Urea Nitrogen 27 mg/dL (7-18) H Creatinine 1.2 MG/DL (0.55-1.30) Estimat Glomerular Filtration Rate > 60 mL/min (>60) Glucose Level 103 MG/DL (74-106) Lactic Acid Level 1.40 mmol/L (0.4-2.0) Calcium Level 10.2 MG/DL (8.5-10.1) H Total Bilirubin 1.4 MG/DL (0.2-1.0) H Direct Bilirubin 0.6 MG/DL (0.0-0.3) H Aspartate Amino Transf (AST/SGOT) 30 U/L (15-37) Alanine Aminotransferase (ALT/SGPT) 33 U/L (12-78) Alkaline Phosphatase 79 U/L (46-116) C-Reactive Protein, Quantitative 20.2 mg/dL (0.00-0.90) H Total Protein 6.3 G/DL (6.4-8.2) L Albumin 3.1 G/DL (3.4-5.0) L Globulin 3.2 g/dL Albumin/Globulin Ratio 1.0 (1.0-2.7) Amylase Level 19 U/L (25-115) L Lipase 97 U/L (73-393) Percent CD3 Cells Pending Absolute CD3 Count Pending Percent CD4 Cells Pending Absolute CD4 Count Pending T-Lymphocyte CD4/CD8 Ratio Pending Percent CD8 Cells Pending Absolute CD8 Count Pending HIV-1 RNA (PCR) log10 Value Pending HIV-1 RNA Ultraquantitative (PCR) Pending Height (Feet): 6 Height (Inches): 0.00 Weight (Pounds): 200 Medications Current Medications Medications (Trade) Dose Ordered Sig/Mitzi Route PRN Reason Start Time Stop Time Status Last Admin Dose Admin Cyclobenzaprine HCl (Flexeril) 10 mg THREE TIMES A DAY ORAL 06/23/18 20:30 07/23/18 20:29 06/27/18 17:07 Docusate Sodium (Colace) 100 mg THREE TIMES A DAY ORAL 06/23/18 18:00 07/23/18 17:59 06/27/18 17:07 Gabapentin (Neurontin) 300 mg BID ORAL 06/23/18 20:30 07/23/18 20:29 06/27/18 17:07 Heparin Sodium (Porcine) (Heparin 5000 units/ml) 5,000 units EVERY 12 HOURS SUBQ 06/23/18 21:00 07/23/18 20:59 06/27/18 09:19 Hydralazine HCl (Apresoline) 10 mg Q6H PRN IV For High Blood Pressure 06/23/18 21:30 07/23/18 21:29 06/27/18 12:15 Ipratropium [place] (Atrovent) 500 mcg Q4H PRN HHN Shortness of Breath 06/27/18 09:45 07/02/18 09:44 Metoprolol Tartrate (Lopressor) 25 mg Q12HR ORAL 06/23/18 21:00 07/23/18 20:59 06/27/18 09:06 Morphine Sulfate (Morphine Sulfate) 2 mg Q4H PRN IVP For Pain 06/24/18 21:30 07/01/18 21:29 06/26/18 08:56 Ondansetron HCl (Zofran) 4 mg Q6H PRN IVP Nausea & Vomiting 06/23/18 19:00 07/23/18 18:59 06/24/18 13:43 Pantoprazole (Protonix) 40 mg DAILY IVP 06/24/18 09:00 07/24/18 08:59 06/27/18 09:06 Patient Own Medication (Patient's Own Med) 1 ea DAILY ORAL 06/24/18 17:00 07/24/18 16:59 06/27/18 09:06 Piperacillin Sod/ Tazobactam Sod 3.375 gm/Dextrose 110 ml @ 27.5 mls/hr Q8H IVPB 06/25/18 17:00 07/02/18 16:59 06/27/18 16:28 Sodium Chloride 1,000 ml @ 125 mls/hr Q8H IV 06/26/18 16:00 07/26/18 15:59 06/27/18 16:05 Tamsulosin HCl (Flomax) 0.4 mg BEDTIME ORAL 06/23/18 21:00 07/23/18 20:59 06/26/18 20:41 Assessment/Plan Problem List: (1) Acute abdominal pain Assessment & Plan: acute generalized abdominal cramping bloating pain tender leukocytosis lactic acidosis. since leukocytosis, lactic acidosis, and tenderness/pain improving in the last 24hrs. etiology of initial presentation unknown still. kub without obstruction CT noted without significant pathology Plan to repeat CT A/P with IV and oral contrast NPO for now till repeat CT reported IV fluids IV abx will follow with recs no acute surgical intervention planned thank you ICD Codes: R10.9 - Unspecified abdominal pain SNOMED: 416053870 Romain Jhaveri Jun 27, 2018 17:37
[2018-06-27] MEDS ORDERED: Gastrograffin 30ml ORAL PRN (17:45)
[2018-06-27] MEDS ORDERED: Isovue-300 100ml vial INJ PRN (17:45)
--- NOTE | 2018-06-27 19:10 | NUR ---
NURSE NOTES: Received report from SHALOM Person. Patient in bed resting. No active s/s cardiac, respiratory distress noticed at this time. Denies pain at this time. Bed in lowest position, side rails up x2, call light within reach. Will continue to monitor and follow plan of care.
--- NOTE | 2018-06-27 19:14 | NUR ---
HAND-OFF: Report given to SHALOM Angel. Patient is in stable condition. No acute distress/SOB noted. Endorsed plan of care.
[2018-06-27] MEDS: Tamsulosin 0.4mg cap ORAL SCH (21:36)
[2018-06-28] VITALS: BP 141/74
[2018-06-28] MEDS: Piperacillin/Tazobactam 3.375 GM in D5W 110 ML IVPB SCH ×3 (01:02→17:03)
[2018-06-28 04:00] VITALS: BP 153/85
--- NOTE | 2018-06-28 07:25 | NUR ---
HAND-OFF: Report given to Donte RAUSCH.
--- NOTE | 2018-06-28 07:38 | General Progress Note ---
Assessment/Plan Problem List: (1) Sepsis Assessment & Plan: likely GI source elevated wbc 20s with elevated LA and tachycardia patient on broad spectrum abx vanco and zosyn ID consulted, appreciate recs cont close monitoring IVF ICD Codes: A41.9 - Sepsis, unspecified organism SNOMED: 06585152 (2) Small bowel obstruction Assessment & Plan: SBO ct showing fecal impaction multiple BMs after bowel care yesterday cont aggressive bowel regiment severe abd pain pain control GI consult appreciate close monitoring ICD Codes: K56.609 - Unspecified intestinal obstruction, unspecified as to partial versus complete obstruction SNOMED: 575317805 (3) Acute abdominal pain Assessment & Plan: due to severe constipation CT abd/pelvis reviewed, showing fecal impaction, no ischemia noted, repeat imaging per surgery enema bowel care suppository gi consult appreciated monitor closely ICD Codes: R10.9 - Unspecified abdominal pain SNOMED: 716850170 (4) Fecal impaction Assessment & Plan: as per above cont bowel care gi consult ICD Codes: K56.41 - Fecal impaction SNOMED: 56527842 (5) Back pain at L4-L5 level Assessment & Plan: likely muscle spasms vs nerve impingement MRI L-Spine wo contrast pending resume muscle relaxants gabapentin cyclobenzaprine morphine 2mg IV q6hrs ICD Codes: M54.5 - Low back pain SNOMED: 007775359 (6) DEANNA (acute kidney injury) Assessment & Plan: due to dehydration Cr 1.1 on admit, pending repeat labs, cont IVF likely prerenal IVF monitor closely ICD Codes: N17.9 - Acute kidney failure, unspecified SNOMED: 41318692 (7) Dehydration Assessment & Plan: IVF for hydration monitor closely NS 100cc/hr ICD Codes: E86.0 - Dehydration SNOMED: 99797836 (8) AIDS Assessment & Plan: cont home meds ICD Codes: B20 - Human immunodeficiency virus [HIV] disease SNOMED: 93592484 (9) HIV (human immunodeficiency virus infection) Assessment & Plan: resume home meds ICD Codes: B20 - Human immunodeficiency virus [HIV] disease SNOMED: 76096418 Status: stable Assessment/Plan diet: clear liquid , adat DVT Prophylaxis: SCD, HSQ Code Status: Full Hospital Classification Declaration: Based on this initial evaluation, and depending on the patient's clinical course, I anticipate that this patient will require hospitalization for 2-3 midnights for severe back pain and abdominal pain and close respiratory/hemodynamic monitoring. Disposition: Once the patient is stable to leave the hospital, I anticipate the patient will likely be discharged to the following environment: home I spent 65 minutes on this patient's case, and 40 minutes were dedicated to counseling and/or care coordination. Discussed with patient/family, nursing staff, SW/CM, abd consultants regarding clinical status, treatment course, and disposition planning. Time of note may not reflect time of encounter. -- Date of Discussion: 06/23/18 A [id number] discussion with the patient regarding the patient's advanced care planning took place during this hospitalization on the above date. The discussion included the explanation and discussion of advance directives and associated forms/documents, as well as the patient's current code status. We also discussed at length the patient's medical conditions (both acute and chronic), general prognosis, treatment options, and goals of care. The following summarizes the discussion: Advance Care Planning/Goals of Care: - Will attempt to fill out an AD and/or POLST with the patient prior to discharge, if not already completed - Continue current evaluation and management of any acute and chronic medical issues - Will continue to support the patient/family - Will continue to discuss both short- and long-term goals of care DPOA-HC/Surrogate Decision Maker: None currently appointed . He does not have any friends/family that could support him or help him if needed Code Status: DNR/DNI AD Forms/Documents Completed: Deferred A total of 35 minutes was spent on this discussion, including counseling, answering questions, and completing, if any, pertinent advanced care planning forms/documents. Subjective Date patient seen: Jun 28, 2018 Time patient seen: 07:33 Allergies: Coded Allergies: No Known Allergies (Unverified , 06/23/18) Subjective f/u sbo, abdominal distention, intractable abdominal pain, back pain having mild abd pain, states pain much improved as he had multiple BMs yesterday however abd still very distended.. "bloating" improved denies any fevers/chills/nausea/vomiting ROS: 14 point ROS negative except per above HPI Objective Last 24 Hour Vital Signs Date Time Temp Pulse Resp B/P (MAP) Pulse Ox O2 Delivery O2 Flow Rate FiO2 06/28/18 04:00 97.9 117 22 153/85 (107) 98 06/28/18 04:00 122 06/28/18 00:00 97.7 111 22 141/74 (96) 95 06/28/18 00:00 116 06/27/18 21:36 120 160/87 06/27/18 21:00 Room Air 06/27/18 20:00 98.4 120 22 160/87 (111) 96 06/27/18 20:00 120 06/27/18 16:00 122 06/27/18 16:00 98.6 124 22 156/93 (114) 94 06/27/18 13:24 98.7 120 26 164/78 (106) 95 06/27/18 12:15 170/97 06/27/18 12:00 98.7 102 26 170/97 (121) 95 06/27/18 12:00 112 06/27/18 10:49 98.2 104 23 146/93 (110) 95 06/27/18 09:06 123 170/107 06/27/18 09:00 Room Air 06/27/18 08:00 98.7 123 25 170/107 (128) 94 06/27/18 08:00 125 Intake and Output 06/27/18 06/28/18 18:59 06:59 Intake Total 100 ml Output Total 250 ml 375 ml Balance -250 ml -275 ml Intake Oral 100 ml Output Urine Total 250 ml 375 ml # Voids 1 # Bowel Movements 2 1 Laboratory Tests 06/27/18 08:05: White Blood Count [Pending], Red Blood Count 5.32, Hemoglobin 17.9, Hematocrit 51.0, Mean Corpuscular Volume 96, Mean Corpuscular Hemoglobin 33.7H, Mean Corpuscular Hemoglobin Concent 35.2, Red Cell Distribution Width 11.5L, Platelet Count 172, Mean Platelet Volume 8.3, Neutrophils (%) (Auto) , Lymphocytes (%) (Auto) , Monocytes (%) (Auto) , Eosinophils (%) (Auto) , Basophils (%) (Auto) , Differential Total Cells Counted 100, Neutrophils % ( Manual) 89H, Lymphocytes % (Manual) 7L, Monocytes % (Manual) 3, Eosinophils % ( Manual) 1, Basophils % (Manual) 0, Band Neutrophils 0, Lymphocytes [Pending], Platelet Estimate Adequate, Platelet Morphology Normal, Red Blood Cell Morphology Normal, Erythrocyte Sedimentation Rate 5, Prothrombin Time 14.0H, Prothromb Time International Ratio 1.3H, Activated Partial Thromboplast Time 35H , Sodium Level 140, Potassium Level 3.8, Chloride Level 104, Carbon Dioxide Level 25, Anion Gap 12, Blood Urea Nitrogen 27H, Creatinine 1.2, Estimat Glomerular Filtration Rate > 60, Glucose Level 103, Lactic Acid Level 1.40, Calcium Level 10.2H, Total Bilirubin 1.4H, Direct Bilirubin 0.6H, Aspartate Amino Transf (AST/SGOT) 30, Alanine Aminotransferase (ALT/SGPT) 33, Alkaline Phosphatase 79, C-Reactive Protein, Quantitative 20.2H, Total Protein 6.3L, Albumin 3.1L, Globulin 3.2, Albumin/Globulin Ratio 1.0, Amylase Level 19L, Lipase 97, Percent CD3 Cells [Pending], Absolute CD3 Count [Pending], Percent CD4 Cells [Pending], Absolute CD4 Count [Pending], T-Lymphocyte CD4/CD8 Ratio [ Pending], Percent CD8 Cells [Pending], Absolute CD8 Count [Pending], HIV-1 RNA ( PCR) log10 Value [Pending], HIV-1 RNA Ultraquantitative (PCR) [Pending] Height (Feet): 6 Height (Inches): 0.00 Weight (Pounds): 200 Objective General Appearance: WD/WN, alert, mild distress Lines, tubes and drains: peripheral HEENT: normocephalic Neck: non-tender, normal alignment, supple, normal inspection Respiratory/Chest: chest wall non-tender, lungs clear, normal breath sounds, no respiratory distress, no accessory muscle use Cardiovascular/Chest: normal peripheral pulses, normal rate, regular rhythm Abdomen: no organomegaly, no mass, decreased bowel sounds, other - abdominal distention, mild ttp diffusely Extremities: normal range of motion, non-tender, normal inspection, no calf tenderness Skin Exam: normal pigmentation, warm/dry 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
--- NOTE | 2018-06-28 07:56 | NUR ---
NURSE NOTES: Patient sitting in chair, eating breakfast, on room air, nasal cannula in bed, bed in lowest position, call light within reach, urinal at bedside, IV in left forearm 20 gauge patent running IV fluids.
[2018-06-28 08:00] VITALS: BP 165/103
[2018-06-28 09:19] LABS: BASOPHILS % (AUTO) 0.7 % (0.0-2.0); EOSINOPHILS % (AUTO) 3.5 % (0.0-3.0); HEMATOCRIT 52.4 % (42.0-52.0); LYMPHOCYTES % (AUTO) 9.6 % (20.0-45.0); MEAN CORPUSCULAR VOLUME 98 FL (80-99); MONOCYTES % (AUTO) 11.6 % (1.0-10.0); NEUTROPHILS % (AUTO) 74.6 % (45.0-75.0); PLATELET COUNT 218 K/UL (150-450); RED BLOOD COUNT 5.34 M/UL (4.70-6.10); RED CELL DISTRIBUTION WIDTH 11.4 % (11.6-14.8)
[2018-06-28 09:35] LABS: ANION GAP 9 mmol/L (5-15); BLOOD UREA NITROGEN 25 mg/dL (7-18); CALCIUM 10.2 MG/DL (8.5-10.1); CARBON DIOXIDE 28 MMOL/L (21-32); CHLORIDE 107 MMOL/L (98-107); CREATININE 1.1 MG/DL (0.55-1.30); POTASSIUM 3.7 MMOL/L (3.5-5.1); SODIUM 143 MMOL/L (136-145)
[2018-06-28] MEDS: Docusate 100mg cap ORAL SCH ×3 (10:03→17:06)
--- NOTE | 2018-06-28 10:03 | NUR ---
INSURANCE REVIEW AND CLINICALS FAXED TO [facility] T: [phone] F: [phone] REF #[id number]
[2018-06-28] MEDS: Metoprolol 25mg tab ORAL SCH ×2 (10:04→20:15)
[2018-06-28] MEDS: Cyclobenzaprine 10mg Tab ORAL SCH ×3 (10:04→17:06)
[2018-06-28] MEDS: Heparin 5000 units/ml inj SUBQ SCH ×2 (10:10→20:23)
[2018-06-28] MEDS: TRIUMEQ ORAL SCH (10:11)
[2018-06-28] MEDS: Pantoprazole Inj IVP SCH (10:39)
[2018-06-28 12:00] VITALS: BP 159/90
--- NOTE | 2018-06-28 12:05 | NUR ---
CASE MANAGEMENT:review 06/28/18 SI: SEPSIS. SBO. 97.3 125 22 165/103 95% ON RA WBC+15.0 IS: IV ZOSYN Q8HRS IVF@125/HR LACTULOSE PO TID IV MORPHINE Q4HRS IV PROTONIX QD LOPRESSOR PO Q12 HEPARIN SQ Q12 : TELEMETRY PLAN: CT ABD/PELVIS CLEAR LIQUID DIET
--- NOTE | 2018-06-28 12:10 | NUR ---
NURSE NOTES: MATTHEW Hodges was in room and informing patient of order for MRI of lower back, patient refusing MRI.
--- NOTE | 2018-06-28 12:21 | Diagnostic Imaging Report ---
Clinical Indication: Abdominal pain and back pain, 8 out of 10 bloating, worse for last 2-3 days, worsening leukocytosis and lactic acidosis Technique: Patient given oral contrast. IV administration nonionic contrast. Venous phase spiral acquisition obtained through the abdomen and pelvis. Multiplanar reconstructions were generated. Total dose length product 913.59 mGycm. CTDIvol(s) 16.58 mGy. Dose reduction achieved using automated exposure control Comparison: 06/23/2018 Findings: The included lung bases demonstrate a now massive right pleural effusion, resultant compressive atelectasis of the entire visualized right lower lobe. The included left lung base is clear. The bones demonstrate degenerative spondylosis changes, as well as mild degenerative changes of the hips, are otherwise unremarkable. The appendix is not definitely identified, but no findings to suggest acute appendicitis are evident. Contrast is seen to traverse the entirety of the small bowel. No small bowel distention. No small bowel wall thickening. No evidence of diverticulosis or diverticulitis. No free or loculated intraperitoneal gas or fluid is evident. Distal esophagus, stomach, duodenum are unremarkable. The liver demonstrates a subcentimeter low-attenuation lesion in segment 5, and another in segment 7, both evident previously. The gallbladder, bile ducts, pancreas, spleen, adrenals, left kidney are unremarkable. The right kidney demonstrates subcentimeter low-attenuation lesions which are too small to characterize. No pelvic mass or adenopathy. No significant interim change Impression: Massive right pleural effusion, markedly enlarged since prior exam of 5 days earlier. This results in compressive atelectasis of the entire visualized right lower lobe No definite acute abdominal or pelvic process Subcentimeter low-attenuation lesions in the liver, as described. Most likely benign simple cysts or bile hamartomas. Right renal lesions which are too small to characterize, most likely benign simple cysts. No further follow-up necessary The CT scanner at [facility] is accredited by the [employer] and the scans are performed using protocols designed to limit radiation exposure to as low as reasonably achievable to attain images of sufficient resolution adequate for diagnostic evaluation.
--- NOTE | 2018-06-28 12:34 | General Surgery Progress Note ---
General Surgery-Progress Note Subjective Additional Comments no acute events. CT noted Objective Last 24 Hour Vital Signs Date Time Temp Pulse Resp B/P (MAP) Pulse Ox O2 Delivery O2 Flow Rate FiO2 06/28/18 10:34 97.3 06/28/18 10:04 125 165/103 06/28/18 08:00 97.3 125 22 165/103 (123) 95 06/28/18 04:00 97.9 117 22 153/85 (107) 98 06/28/18 04:00 122 06/28/18 00:00 97.7 111 22 141/74 (96) 95 06/28/18 00:00 116 06/27/18 21:36 120 160/87 06/27/18 21:00 Room Air 06/27/18 20:00 98.4 120 22 160/87 (111) 96 06/27/18 20:00 120 06/27/18 16:00 122 06/27/18 16:00 98.6 124 22 156/93 (114) 94 06/27/18 13:24 98.7 120 26 164/78 (106) 95 I&O Intake and Output 06/27/18 06/28/18 18:59 06:59 Intake Total 100 ml Output Total 250 ml 375 ml Balance -250 ml -275 ml Intake Oral 100 ml Output Urine Total 250 ml 375 ml # Voids 1 # Bowel Movements 2 1 Drains: none Cardiovascular: RSR Respiratory: clear, decreased breath sounds Abdomen: soft, non-tender, present bowel sounds Extremities: no cyanosis Laboratory Tests Test 06/28/18 09:10 White Blood Count 15.0 K/UL (4.8-10.8) H Red Blood Count 5.34 M/UL (4.70-6.10) Hemoglobin 18.0 G/DL (14.2-18.0) Hematocrit 52.4 % (42.0-52.0) H Mean Corpuscular Volume 98 FL (80-99) Mean Corpuscular Hemoglobin 33.7 PG (27.0-31.0) H Mean Corpuscular Hemoglobin Concent 34.4 G/DL (32.0-36.0) Red Cell Distribution Width 11.4 % (11.6-14.8) L Platelet Count 218 K/UL (150-450) Mean Platelet Volume 8.0 FL (6.5-10.1) Neutrophils (%) (Auto) 74.6 % (45.0-75.0) Lymphocytes (%) (Auto) 9.6 % (20.0-45.0) L Monocytes (%) (Auto) 11.6 % (1.0-10.0) H Eosinophils (%) (Auto) 3.5 % (0.0-3.0) H Basophils (%) (Auto) 0.7 % (0.0-2.0) Sodium Level 143 MMOL/L (136-145) Potassium Level 3.7 MMOL/L (3.5-5.1) Chloride Level 107 MMOL/L (98-107) Carbon Dioxide Level 28 MMOL/L (21-32) Anion Gap 9 mmol/L (5-15) Blood Urea Nitrogen 25 mg/dL (7-18) H Creatinine 1.1 MG/DL (0.55-1.30) Estimat Glomerular Filtration Rate > 60 mL/min (>60) Glucose Level 105 MG/DL (74-106) Calcium Level 10.2 MG/DL (8.5-10.1) H Plan Problems: (1) Acute abdominal pain Assessment & Plan: acute generalized abdominal cramping bloating pain tender leukocytosis lactic acidosis. since leukocytosis, lactic acidosis, and tenderness/pain improving in the last 24hrs. etiology of initial presentation unknown still. kub without obstruction CT noted without significant pathology CT with massive pleural effusion okay for diet after US guided thoracentesis IV fluids IV abx will follow with recs no acute surgical intervention planned thank you Romain Jhaveri Jun 28, 2018 12:34
--- NOTE | 2018-06-28 13:09 | NUR ---
Concerning MRI...PT AGAIN REFUSED MRI, EXTREMELY CLAUSTROPHOBIC, STATES HAS A HIGH TOLERANCE FOR PAIN MEDS AND SEDATION MEDICATION AND DOES NOT FEEL WE CAN SEDATE HIM ENOUGH AND DOES NOT SEEM LIKE HE WISHES FOR US TO EVEN TRY. THIS IS THE THIRD TIME THE PT HAS REFUSED. PT ALSO CAN NOT LAY FLAT DUE TO RESPIRATORY ISSUES. SHALOM SHULTZ HAS BEEN INFORMED. IT SHOULD BE NOTED THAT SOME CT IMAGES ON THE SPINE WERE OBTAINED WITH THE CT ABDOMEN/PELVIS EXAM JUST RECENTLY DONE. CYNTHIA
--- NOTE | 2018-06-28 14:26 | Pre-Procedure Note/Attestation ---
Pre-Procedure Note/Attestation Complete Prior to Procedure Planned Procedure: right Procedure Narrative: thoracentesis Indications for Procedure Pre-Operative Diagnosis: R pleural effusion Attestation I attest that I discussed the nature of the procedure; its benefits; risks and complications; and alternatives (and the risks and benefits of such alternatives ), prior to the procedure, with the patient (or the patient's legal b2b outside sales representative). I attest that, if there was a reasonable possibility of needing a blood transfusion, the patient (or the patient's legal b2b outside sales representative) was given the [facility] standardized written summary, pursuant to the Jhonathan Kelton Blood Safety Act ([place] Health and Safety Code # 1645, as amended). I attest that I re-evaluated the patient just prior to the surgery and that there has been no change in the patient's H&P, except as documented below: Brandon Truong MD Jun 28, 2018 14:26
--- NOTE | 2018-06-28 14:53 | NUR ---
RD ASSESSMENT & RECOMMENDATIONS SEE CARE ACTIVITY FOR COMPLETE ASSESSMENT DAILY ESTIMATED NEEDS: Needs based on cardiac, pulm, HIV 82kg 25-30 kcals/kg 1365-5829 total kcals 1-1.5 g protein/kg 82-123 g total protein Fluid per MD NUTRITION DIAGNOSIS: Altered nutrition related lab values r/t clinical status as evidenced by elev WBC (27.4-> 15.0), elev BP (165/103), CD4 count 277. CURRENT DIET:CLD PO DIET RECOMMENDATIONS: Advance as able to LOW NA/ Soft diet ADDITIONAL RECOMMENDATIONS: 1) Obtain a standing weight as able 2) Ensure Clear w/ Clear liquid diet 3) Monitor CLD status/ diet advancement 4) Monitor for regular BM's
--- NOTE | 2018-06-28 15:15 | Brief Operative Note ---
Immediate Post Operative Note Operative Note Pre-op Diagnosis: R pleural effusion Procedure: Thoracentesis Post-op Diagnosis: same as pre-op Surgeon: Opal Majano Anesthesia: local Specimen: yes - 50 ml fluid sent to lab Complications: none Condition: stable Fluids: none Implant(s) used?: No Brandon Majano MD Jun 28, 2018 15:15
--- NOTE | 2018-06-28 15:51 | Diagnostic Imaging Report ---
Indication: Status post thoracentesis Technique: One view of the chest Comparison: 06/27/2018 Findings: There is persistent near complete opacification of the right hemithorax, despite recent thoracentesis with removal of 900 mL of fluid. No pneumothorax demonstrated. Left lung and pleural space remain clear. Impression: Persistent near complete opacification of the right hemithorax, despite recent thoracentesis with removal of 900 mL of fluid. This likely represents combination of persistent right lung atelectasis and persistent undrained pleural fluid No evidence of pneumothorax Left lung and pleural space remain clear
--- NOTE | 2018-06-28 15:58 | Diagnostic Imaging Report ---
Indications: Pleural effusion Technique: Ultrasound used to localize optimal puncture site. Sterile prepping and draping chest. Local anesthesia with 1% lidocaine. Under real-time ultrasound guidance, puncture pleural space using thoracentesis needle. Stylet removed. Catheter placed to vacuum bottle suction. Total 900 milliliters of cloudy yellow fluid aspirated. Patient tolerated procedure well, without immediate complication. A specimen was sent to the lab Findings: Followup sonography demonstrates complete resolution of pleural fluid. Impression: Successful ultrasound-guided thoracentesis, yielding 900 milliliters of cloudy yellow fluid Note that initial images suggested septation of the pleural fluid. Per discussion with technologist, no residual fluid was apparent after the procedure. However, chest radiograph demonstrates what appears to be persistent large pleural effusion. This may just be due to atelectatic lung with failure of reexpansion, or could be due to a separate loculation of pleural fluid. CT may be useful to better assess if clinically indicated
[2018-06-28 16:00] VITALS: BP 162/93
--- NOTE | 2018-06-28 17:27 | Infectious Diseases Prog Note ---
Assessment/Plan Assessment/Plan ASSESSMENT AND PLAN: 1. sepsis, leukocytosis, fevers, ? cap pna vs atx, effusion, ? empyema, elevated lactic acid, ? source - vancomycin, zosyn and azithromycin - check thoracentesis results, check serology, check labs, f/u chest x-ray 2. hiv, aids - cd4 is 277, VL pending, continue Triumeq 3. back pain 4. Questionable history of hypertension. He has elevated blood pressure. 5. History of acute kidney injury. Creatinine seems to be stable 6. Dehydration. On intravenous fluids. 7. No known allergies. 8. Social history is negative. 9. Family history is noncontributory. 10. MAR was noted. 11. Case was discussed with RN. 12. Case was discussed with primary care team. Subjective Constitutional: Denies: fever HEENT: Reports: congestion - less Respiratory: Reports: shortness of breath - less Cardiovascular: Denies: chest pain Gastrointestinal/Abdominal: Reports: other - less abdominal pain ; Denies: nausea, vomiting, diarrhea Neurologic: Denies: headache Psychiatric: Denies: depression Skin: Denies: rash Hematologic: Denies: bleeding Musculoskeletal: Denies: pain Allergies: Coded Allergies: No Known Allergies (Unverified , 06/23/18) Objective Vital Signs Last 24 Hour Vital Signs Date Time Temp Pulse Resp B/P (MAP) Pulse Ox O2 Delivery O2 Flow Rate FiO2 06/28/18 17:07 162/93 06/28/18 16:00 97.7 110 22 162/93 (116) 94 06/28/18 12:00 125 06/28/18 12:00 97.3 105 22 159/90 (113) 95 06/28/18 10:34 97.3 06/28/18 10:04 125 165/103 06/28/18 09:00 Nasal Cannula 2.0 06/28/18 08:00 97.3 125 22 165/103 (123) 95 06/28/18 08:00 127 06/28/18 04:00 97.9 117 22 153/85 (107) 98 06/28/18 04:00 122 06/28/18 00:00 97.7 111 22 141/74 (96) 95 06/28/18 00:00 116 06/27/18 21:36 120 160/87 12/30/18 21:00 Room Air 06/27/18 20:00 98.4 120 22 160/87 (111) 96 06/27/18 20:00 120 Height (Feet): 6 Height (Inches): 0.00 Weight (Pounds): 200 General Appearance: no acute distress HEENT: normocephalic, atraumatic, anicteric, mucous membranes moist Respiratory/Chest: lungs clear, normal breath sounds, no respiratory distress, no accessory muscle use Cardiovascular: normal rate, regular rhythm, no gallop/murmur, no JVD Abdomen: normal bowel sounds, soft, non tender, no organomegaly, non distended Genitourinary: other - no luther, no cva pain Extremities: no cyanosis Skin: no rash Neurologic/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 No pneumothorax demonstrated. Left lung and pleural space remain clear. Impression: Persistent near complete opacification of the right hemithorax, despite recent thoracentesis with removal of 900 mL of fluid. This likely represents combination of persistent right lung atelectasis and persistent undrained pleural fluid No evidence of pneumothorax Left lung and pleural space remain clear CT abdomen and pelvis - 06/28/18 - Impression: Massive right pleural effusion, markedly enlarged since prior exam of 5 days earlier. This results in compressive atelectasis of the entire visualized right lower lobe No definite acute abdominal or pelvic process Subcentimeter low-attenuation lesions in the liver, as described. Most likely benign simple cysts or bile hamartomas. Right renal lesions which are too small to characterize, most likely benign simple cysts. No further follow-up necessary none Laboratory Tests Test 06/28/18 09:10 White Blood Count 15.0 K/UL (4.8-10.8) H Red Blood Count 5.34 M/UL (4.70-6.10) Hemoglobin 18.0 G/DL (14.2-18.0) Hematocrit 52.4 % (42.0-52.0) H Mean Corpuscular Volume 98 FL (80-99) Mean Corpuscular Hemoglobin 33.7 PG (27.0-31.0) H Mean Corpuscular Hemoglobin Concent 34.4 G/DL (32.0-36.0) Red Cell Distribution Width 11.4 % (11.6-14.8) L Platelet Count 218 K/UL (150-450) Mean Platelet Volume 8.0 FL (6.5-10.1) Neutrophils (%) (Auto) 74.6 % (45.0-75.0) Lymphocytes (%) (Auto) 9.6 % (20.0-45.0) L Monocytes (%) (Auto) 11.6 % (1.0-10.0) H Eosinophils (%) (Auto) 3.5 % (0.0-3.0) H Basophils (%) (Auto) 0.7 % (0.0-2.0) Sodium Level 143 MMOL/L (136-145) Potassium Level 3.7 MMOL/L (3.5-5.1) Chloride Level 107 MMOL/L (98-107) Carbon Dioxide Level 28 MMOL/L (21-32) Anion Gap 9 mmol/L (5-15) Blood Urea Nitrogen 25 mg/dL (7-18) H Creatinine 1.1 MG/DL (0.55-1.30) Estimat Glomerular Filtration Rate > 60 mL/min (>60) Glucose Level 105 MG/DL (74-106) Calcium Level 10.2 MG/DL (8.5-10.1) H Current Medications Medications (Trade) Dose Ordered Sig/Mitzi Route PRN Reason Start Time Stop Time Status Last Admin Dose Admin Cyclobenzaprine HCl (Flexeril) 10 mg THREE TIMES A DAY ORAL 06/23/18 20:30 07/23/18 20:29 06/28/18 17:06 Diatrizoate Meglum/ Diatrizoate Sod (Gastrografin) 30 ml NOW PRN ORAL Radiology Procedure 06/27/18 17:45 06/28/18 17:44 Docusate Sodium (Colace) 100 mg THREE TIMES A DAY ORAL 06/23/18 18:00 07/23/18 17:59 06/28/18 10:03 Gabapentin (Neurontin) 300 mg BID ORAL 06/23/18 20:30 07/23/18 20:29 06/28/18 17:06 Heparin Sodium (Porcine) (Heparin 5000 units/ml) 5,000 units EVERY 12 HOURS SUBQ 06/23/18 21:00 07/23/18 20:59 06/28/18 10:10 Hydralazine HCl (Apresoline) 10 mg Q6H PRN IV For High Blood Pressure 06/23/18 21:30 07/23/18 21:29 06/28/18 17:07 Iopamidol (Isovue-300 100ml) 100 ml NOW PRN INJ Radiology Procedure 06/27/18 17:45 06/28/18 17:44 Ipratropium [place] (Atrovent) 500 mcg Q4H PRN HHN Shortness of Breath 06/27/18 09:45 07/02/18 09:44 Metoprolol Tartrate (Lopressor) 25 mg Q12HR ORAL 06/23/18 21:00 07/23/18 20:59 06/28/18 10:04 Morphine Sulfate (Morphine Sulfate) 2 mg Q4H PRN IVP For Pain 06/24/18 21:30 07/01/18 21:29 06/26/18 08:56 Ondansetron HCl (Zofran) 4 mg Q6H PRN IVP Nausea & Vomiting 06/23/18 19:00 07/23/18 18:59 06/24/18 13:43 Pantoprazole (Protonix) 40 mg DAILY IVP 06/24/18 09:00 07/24/18 08:59 06/28/18 10:39 Patient Own Medication (Patient's Own Med) 1 ea DAILY ORAL 06/24/18 17:00 07/24/18 16:59 06/28/18 10:11 Piperacillin Sod/ Tazobactam Sod 3.375 gm/Dextrose 110 ml @ 27.5 mls/hr Q8H IVPB 06/25/18 17:00 07/02/18 16:59 06/28/18 17:03 Sodium Chloride 1,000 ml @ 125 mls/hr Q8H IV 06/26/18 16:00 07/26/18 15:59 06/28/18 17:01 Tamsulosin HCl (Flomax) 0.4 mg BEDTIME ORAL 06/23/18 21:00 07/23/18 20:59 06/27/18 21:36 Abhinav Browne MD Jun 28, 2018 17:27
[2018-06-28] MEDS ORDERED: Vancomycin 1.5 GM/D5W 250ML IVPB SCH (18:00)
--- NOTE | 2018-06-28 18:05 | Pulmonology Progress Note ---
Assessment/Plan Assessment/Plan Pulmonary Consultation HPI Patient is a 62 yo male with h/o lumbar back pain presents with complaints of increasing lower back and abdominal pain. 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 States he takes pain medications at home for it. States it is difficult to walk due to pain. Patient also admits to severe diffuse abdominal pain, admits that he has not had a BM for almost two weeks. Denies vomiting, admits to occasional nausea. Admits to poor appetite. Denies fevers/chills/cp/sob, denies dysuria, denies [place]/vision changes. nC/o shortness of breath, noted to have massive right pleural effusion with RLL atelectasis despite previous recent thoracentesis. S/p Thoracentesis today, tolerated well Social history: reviewed, denies smoking, drugs or alcohol use Code status reviewed, DNR/DNI Allergies: No Known Allergies Medication History Scheduled Cyclobenzaprine Hcl* (Flexeril*), 10 MG ORAL THREE TIMES A DAY, (Reported) Gabapentin* (Gabapentin*), 300 MG ORAL BID, (Reported) Naproxen* (Naproxen*), 500 MG ORAL TWICE A DAY, (Reported) Tamsulosin Hcl (Tamsulosin Hcl*), 0.4 MG ORAL BEDTIME, (Reported) Scheduled PRN Tramadol Hcl* (Ultram*), 50 MG ORAL Q6H PRN for For Pain, (Reported) All Other Systems: negative except mentioned in HPI ROS Narrative 14 point ROS reviewed and negative except per above HPI Objective: VSS noted General Appearance: WD/WN, alert, mild distress Lines, tubes and drains: peripheral HEENT: normocephalic Neck: non-tender, normal alignment, supple, normal inspection Respiratory/Chest: chest wall non-tender, lungs clear, normal breath sounds, no respiratory distress, no accessory muscle use, reduced basal BS Cardiovascular/Chest: normal peripheral pulses, normal rate, regular rhythm Abdomen: no organomegaly, no mass, decreased bowel sounds, other - abdominal distention, mild ttp diffusely Extremities: normal range of motion, non-tender, normal inspection, no calf tenderness Skin Exam: normal pigmentation, warm/dry 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 Laboratory Tests Test 06/23/18 12:58 06/23/18 13:45 White Blood Count 11.7 K/UL (4.8-10.8) H Red Blood Count 5.25 M/UL (4.70-6.10) Hemoglobin 17.8 G/DL (14.2-18.0) Hematocrit 52.2 % (42.0-52.0) H Mean Corpuscular Volume 99 FL (80-99) Mean Corpuscular Hemoglobin 33.9 PG (27.0-31.0) H Mean Corpuscular Hemoglobin Concent 34.1 G/DL (32.0-36.0) Red Cell Distribution Width 11.3 % (11.6-14.8) L Platelet Count 162 K/UL (150-450) Mean Platelet Volume 7.3 FL (6.5-10.1) Neutrophils (%) (Auto) 78.5 % (45.0-75.0) H Lymphocytes (%) (Auto) 11.2 % (20.0-45.0) L Monocytes (%) (Auto) 7.6 % (1.0-10.0) Eosinophils (%) (Auto) 2.1 % (0.0-3.0) Basophils (%) (Auto) 0.6 % (0.0-2.0) Prothrombin Time 11.4 SEC (9.30-11.50) Prothromb Time International Ratio 1.1 (0.9-1.1) Activated Partial Thromboplast Time 26 SEC (23-33) Sodium Level 140 MMOL/L (136-145) Potassium Level 4.2 MMOL/L (3.5-5.1) Chloride Level 102 MMOL/L (98-107) Carbon Dioxide Level 27 MMOL/L (21-32) Anion Gap 11 mmol/L (5-15) Blood Urea Nitrogen 28 mg/dL (7-18) H Creatinine 1.1 MG/DL (0.55-1.30) Estimat Glomerular Filtration Rate > 60 mL/min (>60) Glucose Level 99 MG/DL (74-106) Calcium Level 10.2 MG/DL (8.5-10.1) H Total Bilirubin 0.9 MG/DL (0.2-1.0) Aspartate Amino Transf (AST/SGOT) 29 U/L (15-37) Alanine Aminotransferase (ALT/SGPT) 36 U/L (12-78) Alkaline Phosphatase 50 U/L (46-116) Total Protein 7.3 G/DL (6.4-8.2) Albumin 4.5 G/DL (3.4-5.0) Globulin 2.8 g/dL Albumin/Globulin Ratio 1.6 (1.0-2.7) Lipase 78 U/L (73-393) Urine Color Yellow Urine Appearance Clear Urine pH 5 (4.5-8.0) Urine Specific [place] 1.025 (1.005-1.035) Urine Protein 2+ (NEGATIVE) H Urine Glucose (UA) Negative (NEGATIVE) Urine Ketones Negative (NEGATIVE) Urine Blood 1+ (NEGATIVE) H Urine Nitrite Negative (NEGATIVE) Urine Bilirubin Negative (NEGATIVE) Urine Urobilinogen 1 MG/DL (0.0-1.0) H Urine Leukocyte Esterase 1+ (NEGATIVE) H Urine RBC 2-4 /HPF (0 - 0) H Urine WBC 2-4 /HPF (0 - 0) Urine Squamous Epithelial Cells Occasional /LPF Urine Bacteria Occasional /HPF (NONE) CT chest: Massive right pkleural effusion, right LL atelectasis Height (Feet): 6 Height (Inches): 0.00 Weight (Pounds): 200 Medications Current Medications Medications (Trade) Dose Ordered Sig/Mitzi Route PRN Reason Start Time Stop Time Status Last Admin Dose Admin Docusate Sodium (Colace) 100 mg THREE TIMES A DAY ORAL 06/23/18 18:00 07/23/18 17:59 06/23/18 18:00 Heparin Sodium (Porcine) (Heparin 5000 units/ml) 5,000 units EVERY 12 HOURS SUBQ 06/23/18 21:00 07/23/18 20:59 Iopamidol (Isovue-300 100ml) 100 ml NOW PRN INJ Radiology Procedure 06/23/18 13:15 Metoprolol Tartrate (Lopressor) 25 mg Q12HR ORAL 06/23/18 21:00 07/23/18 20:59 Morphine Sulfate (Morphine Sulfate) 1 mg Q4H PRN IVP For Pain 06/23/18 19:00 06/30/18 18:59 06/23/18 19:31 Ondansetron HCl (Zofran) 4 mg Q6H PRN IVP Nausea & Vomiting 06/23/18 19:00 07/23/18 18:59 Pantoprazole (Protonix) 40 mg DAILY IVP 06/24/18 09:00 07/24/18 08:59 Polyethylene Glycol (Miralax) 17 gm BEDTIME ORAL 06/23/18 21:00 07/23/18 20:59 Promethazine HCl (Phenergan Supp) 25 mg ONCE RECTAL 06/23/18 20:00 06/23/18 22:00 Sodium Chloride 1,000 ml @ 100 mls/hr Q10H IV 06/23/18 19:00 07/23/18 18:59 06/23/18 19:15 Assessment/Plan Problem List: (1) Back pain at L4-L5 level Assessment & Plan: likely muscle spasms vs nerve impingement MRI L-Spine wo contrast pending resume muscle relaxants gabapentin cyclobenzaprine morphine 2mg IV q6hrs ICD Codes: M54.5 - Low back pain SNOMED: 978413941 (2) Acute abdominal pain Assessment & Plan: due to severe constipation CT abd/pelvis reviewed, showing fecal impaction enema bowel care suppository gi consult monitor closely ICD Codes: R10.9 - Unspecified abdominal pain SNOMED: 450968437 (3) Fecal impaction Assessment & Plan: as per above cont bowel care gi consult ICD Codes: K56.41 - Fecal impaction SNOMED: 41710879 (4) DEANNA (acute kidney injury) Assessment & Plan: due to dehydration Cr 1.1 likely prerenal IVF monitor closely ICD Codes: N17.9 - Acute kidney failure, unspecified SNOMED: 26976544 (5) Dehydration Assessment & Plan: IVF for hydration monitor closely NS 100cc/hr ICD Codes: E86.0 - Dehydration SNOMED: 66147356 Status: stable (6) DMassive right pleural effusion with RLL atelectasis Assessment & Plan: S/p trhoracentesis, stable pulmonary status, O2 PRN, await lab results diet: clear liquid , adat DVT Prophylaxis: SCD, HSQ Code Status: Full Hospital Classification Declaration: Based on this initial evaluation, and depending on the patient's clinical course, I anticipate that this patient will require hospitalization for 2-3 midnights for severe back pain and abdominal pain and close respiratory/hemodynamic monitoring. Disposition: Once the patient is stable to leave the hospital, I anticipate the patient will likely be discharged to the following environment: home with HH vs SNF I spent 70 minutes on this patient's case, and 43 minutes were dedicated to counseling and/or care coordination. Discussed with patient/family, nursing staff, SW/CM, [] regarding clinical status, treatment course, and disposition planning. Time of note may not reflect time of encounter. -- Subjective ROS Limited/Unobtainable: No Respiratory: Reports: shortness of breath Allergies: Coded Allergies: No Known Allergies (Unverified , 06/23/18) Objective Last 24 Hour Vital Signs Date Time Temp Pulse Resp B/P (MAP) Pulse Ox O2 Delivery O2 Flow Rate FiO2 06/28/18 17:36 97.7 06/28/18 17:07 162/93 06/28/18 16:00 97.7 110 22 162/93 (116) 94 06/28/18 12:00 125 06/28/18 12:00 97.3 105 22 159/90 (113) 95 06/28/18 10:04 125 165/103 06/28/18 09:00 Nasal Cannula 2.0 06/28/18 08:00 97.3 125 22 165/103 (123) 95 06/28/18 08:00 127 06/28/18 04:00 97.9 117 22 153/85 (107) 98 06/28/18 04:00 122 06/28/18 00:00 97.7 111 22 141/74 (96) 95 06/28/18 00:00 116 06/27/18 21:36 120 160/87 06/27/18 21:00 Room Air 06/27/18 20:00 98.4 120 22 160/87 (111) 96 06/27/18 20:00 120 Intake and Output 06/27/18 06/28/18 19:00 07:00 Intake Total 100 ml Output Total 250 ml 375 ml Balance -250 ml -275 ml Intake Oral 100 ml Output Urine Total 250 ml 375 ml # Voids 1 # Bowel Movements 2 1 Laboratory Tests 06/28/18 09:10: White Blood Count 15.0H, Red Blood Count 5.34, Hemoglobin 18.0, Hematocrit 52.4H , Mean Corpuscular Volume 98, Mean Corpuscular Hemoglobin 33.7H, Mean Corpuscular Hemoglobin Concent 34.4, Red Cell Distribution Width 11.4L, Platelet Count 218, Mean Platelet Volume 8.0, Neutrophils (%) (Auto) 74.6, Lymphocytes (%) (Auto) 9.6L, Monocytes (%) (Auto) 11.6H, Eosinophils (%) (Auto) 3.5H, Basophils (%) (Auto) 0.7, Sodium Level 143, Potassium Level 3.7, Chloride Level 107, Carbon Dioxide Level 28, Anion Gap 9, Blood Urea Nitrogen 25H, Creatinine 1.1, Estimat Glomerular Filtration Rate > 60, Glucose Level 105, Calcium Level 10.2H Current Medications Medications (Trade) Dose Ordered Sig/Mitzi Route PRN Reason Start Time Stop Time Status Last Admin Dose Admin Azithromycin (Zithromax) 500 mg DAILY ORAL 06/29/18 09:00 07/06/18 08:59 Cyclobenzaprine HCl (Flexeril) 10 mg THREE TIMES A DAY ORAL 06/23/18 20:30 07/23/18 20:29 06/28/18 17:06 Docusate Sodium (Colace) 100 mg THREE TIMES A DAY ORAL 06/23/18 18:00 07/23/18 17:59 06/28/18 10:03 Gabapentin (Neurontin) 300 mg BID ORAL 06/23/18 20:30 07/23/18 20:29 06/28/18 17:06 Heparin Sodium (Porcine) (Heparin 5000 units/ml) 5,000 units EVERY 12 HOURS SUBQ 06/23/18 21:00 07/23/18 20:59 06/28/18 10:10 Hydralazine HCl (Apresoline) 10 mg Q6H PRN IV For High Blood Pressure 06/23/18 21:30 07/23/18 21:29 06/28/18 17:07 Ipratropium [place] (Atrovent) 500 mcg Q4H PRN HHN Shortness of Breath 06/27/18 09:45 07/02/18 09:44 Metoprolol Tartrate (Lopressor) 25 mg Q12HR ORAL 06/23/18 21:00 07/23/18 20:59 06/28/18 10:04 Morphine Sulfate (Morphine Sulfate) 2 mg Q4H PRN IVP For Pain 06/24/18 21:30 07/01/18 21:29 06/26/18 08:56 Ondansetron HCl (Zofran) 4 mg Q6H PRN IVP Nausea & Vomiting 06/23/18 19:00 07/23/18 18:59 06/24/18 13:43 Pantoprazole (Protonix) 40 mg DAILY IVP 06/24/18 09:00 07/24/18 08:59 06/28/18 10:39 Patient Own Medication (Patient's Own Med) 1 ea DAILY ORAL 06/24/18 17:00 07/24/18 16:59 06/28/18 10:11 Piperacillin Sod/ Tazobactam Sod 3.375 gm/Dextrose 110 ml @ 27.5 mls/hr Q8H IVPB 06/25/18 17:00 07/02/18 16:59 06/28/18 17:03 Sodium Chloride 1,000 ml @ 125 mls/hr Q8H IV 06/26/18 16:00 07/26/18 15:59 06/28/18 17:01 Tamsulosin HCl (Flomax) 0.4 mg BEDTIME ORAL 06/23/18 21:00 07/23/18 20:59 06/27/18 21:36 Vancomycin HCl (Vanco rx to dose) 1 ea DAILY PRN MISC Per rx protocol 06/28/18 17:30 07/28/18 17:29 Vancomycin HCl 1 gm/Dextrose 275 ml @ 183.708 mls/hr Q12H IVPB 06/29/18 06:00 07/04/18 05:59 Vancomycin HCl/ Dextrose 250 ml @ 125 mls/hr ONCE IVPB 06/28/18 18:00 06/28/18 20:00 Amol Avilez MD Jun 28, 2018 18:05
[2018-06-28] MEDS: Vancomycin 1gm/D5W 275ml IVPB SCH ×2 (18:50)
--- NOTE | 2018-06-28 19:21 | NUR ---
HAND-OFF: Report given to Jeanne Sr RN. Patient sitting up bed, awake and alert, bed in lowest position, call light within reach, IV patent in right forearm, in no apparent distress.
[2018-06-28 20:00] VITALS: BP 170/92
[2018-06-28] MEDS: Tamsulosin 0.4mg cap ORAL SCH (20:14)
[2018-06-29] VITALS: BP 155/74
[2018-06-29] MEDS: Piperacillin/Tazobactam 3.375 GM in D5W 110 ML IVPB SCH ×3 (01:00→16:38)
[2018-06-29 04:00] VITALS: BP 158/100
--- NOTE | 2018-06-29 06:53 | General Progress Note ---
Assessment/Plan Problem List: (1) Sepsis Assessment & Plan: likely GI source vs CAP/PNA vs effusion elevated wbc 20s with elevated LA and tachycardia, wbc improving, to 15, pending AM labs ct done with massive right sided pleural effusion patient on broad spectrum abx vanco, zosyn, azithro ID consulted, appreciate recs cont close monitoring ICD Codes: A41.9 - Sepsis, unspecified organism SNOMED: 53494892 (2) Small bowel obstruction Assessment & Plan: SBO ct showing fecal impaction multiple BMs after bowel care, improving severe abd pain pain control GI consult appreciate close monitoring ICD Codes: K56.609 - Unspecified intestinal obstruction, unspecified as to partial versus complete obstruction SNOMED: 198537977 (3) Acute abdominal pain Assessment & Plan: due to severe constipation CT abd/pelvis reviewed, showing fecal impaction, no ischemia noted, repeat imaging per surgery enema bowel care suppository gi consult appreciated monitor closely ICD Codes: R10.9 - Unspecified abdominal pain SNOMED: 559636698 (4) Fecal impaction Assessment & Plan: as per above cont bowel care gi consult ICD Codes: K56.41 - Fecal impaction SNOMED: 19977712 (5) Back pain at L4-L5 level Assessment & Plan: likely muscle spasms vs nerve impingement pt refused MRI due to claustrophobia, states back pain has improved, no associated neuropathy resume muscle relaxants gabapentin cyclobenzaprine morphine 2mg IV q6hrs ICD Codes: M54.5 - Low back pain SNOMED: 153011013 (6) DEANNA (acute kidney injury) Assessment & Plan: due to dehydration Cr 1.1 on admit, pending repeat labs, cont IVF likely prerenal IVF monitor closely ICD Codes: N17.9 - Acute kidney failure, unspecified SNOMED: 48857780 (7) Dehydration Assessment & Plan: IVF for hydration monitor closely NS 100cc/hr ICD Codes: E86.0 - Dehydration SNOMED: 65331253 (8) AIDS Assessment & Plan: cont home meds ICD Codes: B20 - Human immunodeficiency virus [HIV] disease SNOMED: 04554814 (9) HIV (human immunodeficiency virus infection) Assessment & Plan: resume home meds ICD Codes: B20 - Human immunodeficiency virus [HIV] disease SNOMED: 14832672 Status: stable, progressing Assessment/Plan diet: clear liquid , adat DVT Prophylaxis: SCD, HSQ Code Status: Full Hospital Classification Declaration: Based on this initial evaluation, and depending on the patient's clinical course, I anticipate that this patient will require hospitalization for 2-3 midnights for severe back pain and abdominal pain and close respiratory/hemodynamic monitoring. Disposition: Once the patient is stable to leave the hospital, I anticipate the patient will likely be discharged to the following environment: home I spent 60 minutes on this patient's case, and 40 minutes were dedicated to counseling and/or care coordination. Discussed with patient/family, nursing staff, SW/CM, abd consultants regarding clinical status, treatment course, and disposition planning. Time of note may not reflect time of encounter. -- Date of Discussion: 06/23/18 A [id number] discussion with the patient regarding the patient's advanced care planning took place during this hospitalization on the above date. The discussion included the explanation and discussion of advance directives and associated forms/documents, as well as the patient's current code status. We also discussed at length the patient's medical conditions (both acute and chronic), general prognosis, treatment options, and goals of care. The following summarizes the discussion: Advance Care Planning/Goals of Care: - Will attempt to fill out an AD and/or POLST with the patient prior to discharge, if not already completed - Continue current evaluation and management of any acute and chronic medical issues - Will continue to support the patient/family - Will continue to discuss both short- and long-term goals of care DPOA-HC/Surrogate Decision Maker: None currently appointed . He does not have any friends/family that could support him or help him if needed Code Status: DNR/DNI AD Forms/Documents Completed: Deferred A total of 35 minutes was spent on this discussion, including counseling, answering questions, and completing, if any, pertinent advanced care planning forms/documents. Subjective Date patient seen: Jun 29, 2018 Time patient seen: 06:49 Allergies: Coded Allergies: No Known Allergies (Unverified , 06/23/18) Subjective f/u sbo, abdominal distention, intractable abdominal pain, back pain, massive pleural effusion s/p thoracentesis abd pain improving, had multiple BMs yesterday denies any fevers/chills/nausea/vomiting no acute events overnight ROS: 14 point ROS negative except per above HPI Objective Last 24 Hour Vital Signs Date Time Temp Pulse Resp B/P (MAP) Pulse Ox O2 Delivery O2 Flow Rate FiO2 06/29/18 04:00 98.2 116 19 158/100 (119) 95 06/29/18 00:00 122 06/29/18 00:00 98.2 119 19 155/74 (101) 95 06/28/18 21:00 Nasal Cannula 2.0 06/28/18 20:15 127 170/92 06/28/18 20:00 116 06/28/18 20:00 96.8 127 19 170/92 (118) 94 06/28/18 17:36 97.7 06/28/18 17:07 162/93 06/28/18 16:00 97.7 110 22 162/93 (116) 94 06/28/18 16:00 115 06/28/18 12:00 125 06/28/18 12:00 97.3 105 22 159/90 (113) 95 06/28/18 10:04 125 165/103 06/28/18 09:00 Nasal Cannula 2.0 06/28/18 08:00 97.3 125 22 165/103 (123) 95 06/28/18 08:00 127 Intake and Output 06/28/18 06/29/18 19:00 07:00 Intake Total 500 ml Output Total 500 ml 225 ml Balance 0 ml -225 ml Intake Oral 500 ml Output Urine Total 500 ml 225 ml # Voids 5 2 # Bowel Movements 2 2 Laboratory Tests 06/28/18 09:10: White Blood Count 15.0H, Red Blood Count 5.34, Hemoglobin 18.0, Hematocrit 52.4H , Mean Corpuscular Volume 98, Mean Corpuscular Hemoglobin 33.7H, Mean Corpuscular Hemoglobin Concent 34.4, Red Cell Distribution Width 11.4L, Platelet Count 218, Mean Platelet Volume 8.0, Neutrophils (%) (Auto) 74.6, Lymphocytes (%) (Auto) 9.6L, Monocytes (%) (Auto) 11.6H, Eosinophils (%) (Auto) 3.5H, Basophils (%) (Auto) 0.7, Sodium Level 143, Potassium Level 3.7, Chloride Level 107, Carbon Dioxide Level 28, Anion Gap 9, Blood Urea Nitrogen 25H, Creatinine 1.1, Estimat Glomerular Filtration Rate > 60, Glucose Level 105, Calcium Level 10.2H 06/28/18 09:30: Coccidioides Antibody (Comp Fix) [Pending], Mycoplasma pneumoniae IgG Antibody [ Pending], Mycoplasma pneumoniae IgM Ab Titer [Pending] Height (Feet): 6 Height (Inches): 0.00 Weight (Pounds): 200 Objective General Appearance: WD/WN, alert, mild distress Lines, tubes and drains: peripheral HEENT: normocephalic Neck: non-tender, normal alignment, supple, normal inspection Respiratory/Chest: chest wall non-tender, lungs clear, normal breath sounds, no respiratory distress, no accessory muscle use Cardiovascular/Chest: normal peripheral pulses, normal rate, regular rhythm Abdomen: no organomegaly, no mass, decreased bowel sounds, other - abdominal distention, mild ttp diffusely Extremities: normal range of motion, non-tender, normal inspection, no calf tenderness Skin Exam: normal pigmentation, warm/dry 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
--- NOTE | 2018-06-29 07:45 | NUR ---
HAND-OFF: Report given to Donte RAUSCH.
--- NOTE | 2018-06-29 07:46 | NUR ---
NURSE NOTES: Patient sitting up in bed, awake and alert, no c/o pain, no SOB, in no apparent distress, bed in lowest position, call light within reach, side rails up x 2.
[2018-06-29 08:00] VITALS: BP 172/106
[2018-06-29] MEDS: Heparin 5000 units/ml inj SUBQ SCH ×2 (08:17→20:58)
[2018-06-29] MEDS: Azithromycin 250mg tab ORAL SCH (08:18)
[2018-06-29] MEDS: Metoprolol 25mg tab ORAL SCH ×2 (08:18→20:53)
[2018-06-29] MEDS: Docusate 100mg cap ORAL SCH ×3 (08:18→17:27)
[2018-06-29] MEDS: Cyclobenzaprine 10mg Tab ORAL SCH ×3 (08:18→17:35)
[2018-06-29] MEDS: Pantoprazole Inj IVP SCH (08:19)
[2018-06-29] MEDS: TRIUMEQ ORAL SCH (08:27)
--- NOTE | 2018-06-29 08:45 | NUR ---
NURSE NOTES: Notified Dr. Dudley Giron that patient is in sinus tachycardia heart rate 156-163 range. Provided metoprolol. Instructed to contact Dr. Dudley Giron in one hour if not improved.
[2018-06-29 09:08] LABS: BASOPHILS % (AUTO) 1.2 % (0.0-2.0); EOSINOPHILS % (AUTO) 5.9 % (0.0-3.0); HEMATOCRIT 50.9 % (42.0-52.0); HEMOGLOBIN 17.5 G/DL (14.2-18.0); LYMPHOCYTES % (AUTO) 13.2 % (20.0-45.0); MEAN CORPUSCULAR VOLUME 97 FL (80-99); MONOCYTES % (AUTO) 14.3 % (1.0-10.0); NEUTROPHILS % (AUTO) 65.5 % (45.0-75.0); PLATELET COUNT 227 K/UL (150-450); RED BLOOD COUNT 5.23 M/UL (4.70-6.10); RED CELL DISTRIBUTION WIDTH 11.1 % (11.6-14.8); WHITE BLOOD COUNT 12.2 K/UL (4.8-10.8)
[2018-06-29 09:25] LABS: ALANINE AMINOTRANSFERASE 43 U/L (12-78); ALBUMIN 3.1 G/DL (3.4-5.0); ALBUMIN/GLOBULIN RATIO 1.1 (1.0-2.7); ALKALINE PHOSPHATASE 67 U/L (46-116); ANION GAP 9 mmol/L (5-15); ASPARTATE AMINO TRANSFERASE 35 U/L (15-37); BLOOD UREA NITROGEN 19 mg/dL (7-18); CALCIUM 10.3 MG/DL (8.5-10.1); CARBON DIOXIDE 29 MMOL/L (21-32); CHLORIDE 105 MMOL/L (98-107); CREATININE 1.1 MG/DL (0.55-1.30); POTASSIUM 3.8 MMOL/L (3.5-5.1); SODIUM 143 MMOL/L (136-145)
[2018-06-29 12:00] VITALS: BP 157/103
--- NOTE | 2018-06-29 12:53 | General Surgery Progress Note ---
General Surgery-Progress Note Subjective Symptoms: improved, tolerating diet, passing flatus Additional Comments overall improving Objective Last 24 Hour Vital Signs Date Time Temp Pulse Resp B/P (MAP) Pulse Ox O2 Delivery O2 Flow Rate FiO2 06/29/18 11:31 181/119 06/29/18 09:00 Nasal Cannula 2.0 Nasal Cannula 2.0 06/29/18 08:48 97.7 06/29/18 08:18 89 172/106 06/29/18 08:00 123 06/29/18 08:00 97.7 89 20 172/106 (128) 95 06/29/18 04:00 118 06/29/18 04:00 98.2 116 19 158/100 (119) 95 06/29/18 00:00 122 06/29/18 00:00 98.2 119 19 155/74 (101) 95 06/28/18 21:00 Nasal Cannula 2.0 06/28/18 20:15 127 170/92 06/28/18 20:00 116 06/28/18 20:00 96.8 127 19 170/92 (118) 94 06/28/18 17:07 162/93 06/28/18 16:00 97.7 110 22 162/93 (116) 94 06/28/18 16:00 115 I&O Intake and Output 06/28/18 06/29/18 18:59 06:59 Intake Total 500 ml Output Total 500 ml 225 ml Balance 0 ml -225 ml Intake Oral 500 ml Output Urine Total 500 ml 225 ml # Voids 5 2 # Bowel Movements 2 2 Drains: none Cardiovascular: RSR Respiratory: clear, decreased breath sounds Abdomen: soft, non-tender, present bowel sounds Extremities: no cyanosis Laboratory Tests Test 06/29/18 08:00 06/29/18 08:45 Urine Legionella Antigen Pending White Blood Count 12.2 K/UL (4.8-10.8) H Red Blood Count 5.23 M/UL (4.70-6.10) Hemoglobin 17.5 G/DL (14.2-18.0) Hematocrit 50.9 % (42.0-52.0) Mean Corpuscular Volume 97 FL (80-99) Mean Corpuscular Hemoglobin 33.5 PG (27.0-31.0) H Mean Corpuscular Hemoglobin Concent 34.4 G/DL (32.0-36.0) Red Cell Distribution Width 11.1 % (11.6-14.8) L Platelet Count 227 K/UL (150-450) Mean Platelet Volume 7.1 FL (6.5-10.1) Neutrophils (%) (Auto) 65.5 % (45.0-75.0) Lymphocytes (%) (Auto) 13.2 % (20.0-45.0) L Monocytes (%) (Auto) 14.3 % (1.0-10.0) H Eosinophils (%) (Auto) 5.9 % (0.0-3.0) H Basophils (%) (Auto) 1.2 % (0.0-2.0) Sodium Level 143 MMOL/L (136-145) Potassium Level 3.8 MMOL/L (3.5-5.1) Chloride Level 105 MMOL/L (98-107) Carbon Dioxide Level 29 MMOL/L (21-32) Anion Gap 9 mmol/L (5-15) Blood Urea Nitrogen 19 mg/dL (7-18) H Creatinine 1.1 MG/DL (0.55-1.30) Estimat Glomerular Filtration Rate > 60 mL/min (>60) Glucose Level 100 MG/DL (74-106) Calcium Level 10.3 MG/DL (8.5-10.1) H Total Bilirubin 1.0 MG/DL (0.2-1.0) Aspartate Amino Transf (AST/SGOT) 35 U/L (15-37) Alanine Aminotransferase (ALT/SGPT) 43 U/L (12-78) Alkaline Phosphatase 67 U/L (46-116) Total Protein 6.0 G/DL (6.4-8.2) L Albumin 3.1 G/DL (3.4-5.0) L Globulin 2.9 g/dL Albumin/Globulin Ratio 1.1 (1.0-2.7) Plan Problems: (1) Acute abdominal pain Assessment & Plan: acute generalized abdominal cramping bloating pain tender leukocytosis lactic acidosis. since leukocytosis, lactic acidosis, and tenderness/pain improving in the last 24hrs. etiology of initial presentation unknown still. kub without obstruction CT noted without significant pathology CT with massive pleural effusion s/p US guided thoracentesis okay for diet IV fluids IV abx will follow with recs no acute surgical intervention planned thank you Romain Jhaveri Jun 29, 2018 12:53
--- NOTE | 2018-06-29 12:57 | NUR ---
NURSE NOTES: Notified Dr. Dudley Giron regarding patient blood dlyotpjs=394/119, aiorh=526, provided patient with 10 mg. hydralazine at 1131, patinet blood pressure at 8810=897/103, puvvv=508.
[2018-06-29 16:00] VITALS: BP 152/81
[2018-06-29] MEDS ORDERED: Sodium Chloride 3% 4ml Nebul Soln INH ONE (16:00)
[2018-06-29] MEDS ORDERED: NaCl 3% 500ml 250 ML IV ONE (16:30)
--- NOTE | 2018-06-29 16:57 | Pulmonology Progress Note ---
Assessment/Plan Assessment/Plan Pulmonary Consultation HPI Patient is a 62 yo male with h/o lumbar back pain presents with complaints of increasing lower back and abdominal pain. 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 States he takes pain medications at home for it. States it is difficult to walk due to pain. Patient also admits to severe diffuse abdominal pain, admits that he has not had a BM for almost two weeks. Denies vomiting, admits to occasional nausea. Admits to poor appetite. Denies fevers/chills/cp/sob, denies dysuria, denies [place]/vision changes. nC/o shortness of breath, noted to have massive right pleural effusion with RLL atelectasis. S/p Thoracentesis previously , tolerated well Social history: reviewed, denies smoking, drugs or alcohol use Allergies: No Known Allergies Medication History Scheduled Cyclobenzaprine Hcl* (Flexeril*), 10 MG ORAL THREE TIMES A DAY, (Reported) Gabapentin* (Gabapentin*), 300 MG ORAL BID, (Reported) Naproxen* (Naproxen*), 500 MG ORAL TWICE A DAY, (Reported) Tamsulosin Hcl (Tamsulosin Hcl*), 0.4 MG ORAL BEDTIME, (Reported) Scheduled PRN Tramadol Hcl* (Ultram*), 50 MG ORAL Q6H PRN for For Pain, (Reported) All Other Systems: negative except mentioned in HPI ROS Narrative 14 point ROS reviewed and negative except per above HPI Objective: VSS noted General Appearance: WD/WN, alert, mild distress Lines, tubes and drains: peripheral HEENT: normocephalic Neck: non-tender, normal alignment, supple, normal inspection Respiratory/Chest: chest wall non-tender, lungs clear, normal breath sounds, no respiratory distress, no accessory muscle use, reduced basal BS Cardiovascular/Chest: normal peripheral pulses, normal rate, regular rhythm Abdomen: no organomegaly, no mass, decreased bowel sounds, other - abdominal distention, mild ttp diffusely Extremities: normal range of motion, non-tender, normal inspection, no calf tenderness Skin Exam: normal pigmentation, warm/dry 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 Laboratory Tests Test 06/23/18 12:58 06/23/18 13:45 White Blood Count 11.7 K/UL (4.8-10.8) H Red Blood Count 5.25 M/UL (4.70-6.10) Hemoglobin 17.8 G/DL (14.2-18.0) Hematocrit 52.2 % (42.0-52.0) H Mean Corpuscular Volume 99 FL (80-99) Mean Corpuscular Hemoglobin 33.9 PG (27.0-31.0) H Mean Corpuscular Hemoglobin Concent 34.1 G/DL (32.0-36.0) Red Cell Distribution Width 11.3 % (11.6-14.8) L Platelet Count 162 K/UL (150-450) Mean Platelet Volume 7.3 FL (6.5-10.1) Neutrophils (%) (Auto) 78.5 % (45.0-75.0) H Lymphocytes (%) (Auto) 11.2 % (20.0-45.0) L Monocytes (%) (Auto) 7.6 % (1.0-10.0) Eosinophils (%) (Auto) 2.1 % (0.0-3.0) Basophils (%) (Auto) 0.6 % (0.0-2.0) Prothrombin Time 11.4 SEC (9.30-11.50) Prothromb Time International Ratio 1.1 (0.9-1.1) Activated Partial Thromboplast Time 26 SEC (23-33) Sodium Level 140 MMOL/L (136-145) Potassium Level 4.2 MMOL/L (3.5-5.1) Chloride Level 102 MMOL/L (98-107) Carbon Dioxide Level 27 MMOL/L (21-32) Anion Gap 11 mmol/L (5-15) Blood Urea Nitrogen 28 mg/dL (7-18) H Creatinine 1.1 MG/DL (0.55-1.30) Estimat Glomerular Filtration Rate > 60 mL/min (>60) Glucose Level 99 MG/DL (74-106) Calcium Level 10.2 MG/DL (8.5-10.1) H Total Bilirubin 0.9 MG/DL (0.2-1.0) Aspartate Amino Transf (AST/SGOT) 29 U/L (15-37) Alanine Aminotransferase (ALT/SGPT) 36 U/L (12-78) Alkaline Phosphatase 50 U/L (46-116) Total Protein 7.3 G/DL (6.4-8.2) Albumin 4.5 G/DL (3.4-5.0) Globulin 2.8 g/dL Albumin/Globulin Ratio 1.6 (1.0-2.7) Lipase 78 U/L (73-393) Urine Color Yellow Urine Appearance Clear Urine pH 5 (4.5-8.0) Urine Specific [place] 1.025 (1.005-1.035) Urine Protein 2+ (NEGATIVE) H Urine Glucose (UA) Negative (NEGATIVE) Urine Ketones Negative (NEGATIVE) Urine Blood 1+ (NEGATIVE) H Urine Nitrite Negative (NEGATIVE) Urine Bilirubin Negative (NEGATIVE) Urine Urobilinogen 1 MG/DL (0.0-1.0) H Urine Leukocyte Esterase 1+ (NEGATIVE) H Urine RBC 2-4 /HPF (0 - 0) H Urine WBC 2-4 /HPF (0 - 0) Urine Squamous Epithelial Cells Occasional /LPF Urine Bacteria Occasional /HPF (NONE) CT chest: Massive right pkleural effusion, right LL atelectasis Height (Feet): 6 Height (Inches): 0.00 Weight (Pounds): 200 Medications Current Medications Medications (Trade) Dose Ordered Sig/Mitzi Route PRN Reason Start Time Stop Time Status Last Admin Dose Admin Docusate Sodium (Colace) 100 mg THREE TIMES A DAY ORAL 06/23/18 18:00 07/23/18 17:59 06/23/18 18:00 Heparin Sodium (Porcine) (Heparin 5000 units/ml) 5,000 units EVERY 12 HOURS SUBQ 06/23/18 21:00 07/23/18 20:59 Iopamidol (Isovue-300 100ml) 100 ml NOW PRN INJ Radiology Procedure 06/23/18 13:15 Metoprolol Tartrate (Lopressor) 25 mg Q12HR ORAL 06/23/18 21:00 07/23/18 20:59 Morphine Sulfate (Morphine Sulfate) 1 mg Q4H PRN IVP For Pain 06/23/18 19:00 06/30/18 18:59 06/23/18 19:31 Ondansetron HCl (Zofran) 4 mg Q6H PRN IVP Nausea & Vomiting 06/23/18 19:00 07/23/18 18:59 Pantoprazole (Protonix) 40 mg DAILY IVP 06/24/18 09:00 07/24/18 08:59 Polyethylene Glycol (Miralax) 17 gm BEDTIME ORAL 06/23/18 21:00 07/23/18 20:59 Promethazine HCl (Phenergan Supp) 25 mg ONCE RECTAL 06/23/18 20:00 06/23/18 22:00 Sodium Chloride 1,000 ml @ 100 mls/hr Q10H IV 06/23/18 19:00 07/23/18 18:59 06/23/18 19:15 Assessment/Plan Problem List: (1) Back pain at L4-L5 level Assessment & Plan: likely muscle spasms vs nerve impingement MRI L-Spine wo contrast pending resume muscle relaxants gabapentin cyclobenzaprine morphine 2mg IV q6hrs ICD Codes: M54.5 - Low back pain SNOMED: 865685080 (2) Acute abdominal pain Assessment & Plan: due to severe constipation CT abd/pelvis reviewed, showing fecal impaction enema bowel care suppository gi consult monitor closely ICD Codes: R10.9 - Unspecified abdominal pain SNOMED: 825347533 (3) Fecal impaction Assessment & Plan: as per above cont bowel care gi consult ICD Codes: K56.41 - Fecal impaction SNOMED: 64681042 (4) DEANNA (acute kidney injury) Assessment & Plan: due to dehydration Cr 1.1 likely prerenal IVF monitor closely ICD Codes: N17.9 - Acute kidney failure, unspecified SNOMED: 52874214 (5) Dehydration Assessment & Plan: IVF for hydration monitor closely NS 100cc/hr ICD Codes: E86.0 - Dehydration SNOMED: 07656896 Status: stable (6) Massive right pleural effusion with RLL atelectasis Assessment & Plan: S/p trhoracentesis, stable pulmonary status, O2 PRN, await lab results DNR/DNI diet: clear liquid , adat DVT Prophylaxis: SCD, HSQ Code Status: Full Hospital Classification Declaration: Based on this initial evaluation, and depending on the patient's clinical course, I anticipate that this patient will require hospitalization for 2-3 midnights for severe back pain and abdominal pain and close respiratory/hemodynamic monitoring. Disposition: Once the patient is stable to leave the hospital, I anticipate the patient will likely be discharged to the following environment: home with HH vs SNF I spent 45 minutes on this patient's case, and 23 minutes were dedicated to counseling and/or care coordination. Discussed with patient/family, nursing staff, SW/CM, [] regarding clinical status, treatment course, and disposition planning. Time of note may not reflect time of encounter. -- Subjective ROS Limited/Unobtainable: No Allergies: Coded Allergies: No Known Allergies (Unverified , 06/23/18) Objective Last 24 Hour Vital Signs Date Time Temp Pulse Resp B/P (MAP) Pulse Ox O2 Delivery O2 Flow Rate FiO2 06/29/18 16:00 97.5 116 20 152/81 (104) 94 06/29/18 13:06 97.7 06/29/18 12:00 98.2 107 20 157/103 (121) 93 06/29/18 12:00 116 06/29/18 11:31 181/119 06/29/18 09:00 Nasal Cannula 2.0 Nasal Cannula 2.0 06/29/18 08:18 89 172/106 06/29/18 08:00 123 06/29/18 08:00 97.7 89 20 172/106 (128) 95 06/29/18 04:00 118 06/29/18 04:00 98.2 116 19 158/100 (119) 95 06/29/18 00:00 122 06/29/18 00:00 98.2 119 19 155/74 (101) 95 06/28/18 21:00 Nasal Cannula 2.0 06/28/18 20:15 127 170/92 06/28/18 20:00 116 06/28/18 20:00 96.8 127 19 170/92 (118) 94 06/28/18 17:07 162/93 Intake and Output 06/28/18 06/29/18 19:00 07:00 Intake Total 500 ml 110 ml Output Total 500 ml 225 ml Balance 0 ml -115 ml Intake Oral 500 ml IV Total 110 ml Output Urine Total 500 ml 225 ml # Voids 5 2 # Bowel Movements 2 2 Laboratory Tests 06/29/18 08:00: Urine Legionella Antigen [Pending] 06/29/18 08:45: White Blood Count 12.2H, Red Blood Count 5.23, Hemoglobin 17.5, Hematocrit 50.9 , Mean Corpuscular Volume 97, Mean Corpuscular Hemoglobin 33.5H, Mean Corpuscular Hemoglobin Concent 34.4, Red Cell Distribution Width 11.1L, Platelet Count 227, Mean Platelet Volume 7.1, Neutrophils (%) (Auto) 65.5, Lymphocytes (%) (Auto) 13.2L, Monocytes (%) (Auto) 14.3H, Eosinophils (%) (Auto ) 5.9H, Basophils (%) (Auto) 1.2, Sodium Level 143, Potassium Level 3.8, Chloride Level 105, Carbon Dioxide Level 29, Anion Gap 9, Blood Urea Nitrogen 19H, Creatinine 1.1, Estimat Glomerular Filtration Rate > 60, Glucose Level 100 , Calcium Level 10.3H, Total Bilirubin 1.0, Aspartate Amino Transf (AST/SGOT) 35 , Alanine Aminotransferase (ALT/SGPT) 43, Alkaline Phosphatase 67, Total Protein 6.0L, Albumin 3.1L, Globulin 2.9, Albumin/Globulin Ratio 1.1 Current Medications Medications (Trade) Dose Ordered Sig/Mitzi Route PRN Reason Start Time Stop Time Status Last Admin Dose Admin Azithromycin (Zithromax) 500 mg DAILY ORAL 06/29/18 09:00 07/06/18 08:59 06/29/18 08:18 Cyclobenzaprine HCl (Flexeril) 10 mg THREE TIMES A DAY ORAL 06/23/18 20:30 07/23/18 20:29 06/29/18 12:36 Docusate Sodium (Colace) 100 mg THREE TIMES A DAY ORAL 06/23/18 18:00 07/23/18 17:59 06/28/18 10:03 Gabapentin (Neurontin) 300 mg BID ORAL 06/23/18 20:30 07/23/18 20:29 06/29/18 08:18 Heparin Sodium (Porcine) (Heparin 5000 units/ml) 5,000 units EVERY 12 HOURS SUBQ 06/23/18 21:00 07/23/18 20:59 06/29/18 08:17 Hydralazine HCl (Apresoline) 10 mg Q6H PRN IV For High Blood Pressure 06/23/18 21:30 07/23/18 21:29 06/29/18 11:31 Ipratropium [place] (Atrovent) 500 mcg Q4H PRN HHN Shortness of Breath 06/27/18 09:45 1/4/19 09:44 Metoprolol Tartrate (Lopressor) 25 mg Q12HR ORAL 06/23/18 21:00 07/23/18 20:59 06/29/18 08:18 Morphine Sulfate (Morphine Sulfate) 2 mg Q4H PRN IVP For Pain 06/24/18 21:30 07/01/18 21:29 06/26/18 08:56 Ondansetron HCl (Zofran) 4 mg Q6H PRN IVP Nausea & Vomiting 06/23/18 19:00 07/23/18 18:59 06/24/18 13:43 Pantoprazole (Protonix) 40 mg DAILY IVP 06/24/18 09:00 07/24/18 08:59 06/29/18 08:19 Patient Own Medication (Patient's Own Med) 1 ea DAILY ORAL 06/24/18 17:00 07/24/18 16:59 06/29/18 08:27 Piperacillin Sod/ Tazobactam Sod 3.375 gm/Dextrose 110 ml @ 27.5 mls/hr Q8H IVPB 06/25/18 17:00 07/02/18 16:59 06/29/18 16:38 Tamsulosin HCl (Flomax) 0.4 mg BEDTIME ORAL 06/23/18 21:00 07/23/18 20:59 06/28/18 20:14 Vancomycin HCl (Vanco rx to dose) 1 ea DAILY PRN MISC Per rx protocol 06/28/18 17:30 07/28/18 17:29 Vancomycin HCl 1 gm/Dextrose 275 ml @ 183.708 mls/hr Q12H IVPB 06/29/18 06:00 07/04/18 05:59 06/28/18 18:50 Amol Avilez MD Jun 29, 2018 16:57
--- NOTE | 2018-06-29 17:13 | NUR ---
NURSE NOTES: Spoke with Wiliam, Respiratory Therapist, to ask for sputum inducement.
--- NOTE | 2018-06-29 17:18 | NUR ---
RESPIRATORY NOTE: Pt given 3% Sodium-Chloride Inhalation solution to induce sputum but pt states there is nothing coming out when they cough. RN notified.
[2018-06-29] MEDS: Vancomycin 1gm/D5W 275ml IVPB SCH ×2 (17:35)
--- NOTE | 2018-06-29 18:01 | General Progress Note ---
Assessment/Plan Assessment/Plan Assessment - constipation, resolved - (R) sided large pleural effusion - Elevated WBC concerning - lactate level concerning - but now normal - No clear serious abdominal pathology identifiable - HIV Recommendations - po as tolerated - thoracentesis per pulmonary - follow closely - Repeat LFT Subjective Allergies: Coded Allergies: No Known Allergies (Unverified , 06/23/18) Subjective Sitting in chair (++) BM feels better than yesterday still no abd pain CT --> large pleural effusion Objective Last 24 Hour Vital Signs Date Time Temp Pulse Resp B/P (MAP) Pulse Ox O2 Delivery O2 Flow Rate FiO2 06/29/18 17:18 106 18 96 Room Air 06/29/18 17:10 104 18 96 Room Air 06/29/18 16:00 124 06/29/18 16:00 97.5 116 20 152/81 (104) 94 06/29/18 13:06 97.7 06/29/18 12:00 98.2 107 20 157/103 (121) 93 06/29/18 12:00 116 06/29/18 11:31 181/119 06/29/18 09:00 Nasal Cannula 2.0 Nasal Cannula 2.0 06/29/18 08:18 89 172/106 06/29/18 08:00 123 06/29/18 08:00 97.7 89 20 172/106 (128) 95 06/29/18 04:00 118 06/29/18 04:00 98.2 116 19 158/100 (119) 95 06/29/18 00:00 122 06/29/18 00:00 98.2 119 19 155/74 (101) 95 06/28/18 21:00 Nasal Cannula 2.0 06/28/18 20:15 127 170/92 06/28/18 20:00 116 06/28/18 20:00 96.8 127 19 170/92 (118) 94 Intake and Output 06/28/18 06/29/18 19:00 07:00 Intake Total 500 ml 110 ml Output Total 500 ml 225 ml Balance 0 ml -115 ml Intake Oral 500 ml IV Total 110 ml Output Urine Total 500 ml 225 ml # Voids 5 2 # Bowel Movements 2 2 Laboratory Tests 06/29/18 08:00: Urine Legionella Antigen [Pending] 06/29/18 08:45: White Blood Count 12.2H, Red Blood Count 5.23, Hemoglobin 17.5, Hematocrit 50.9 , Mean Corpuscular Volume 97, Mean Corpuscular Hemoglobin 33.5H, Mean Corpuscular Hemoglobin Concent 34.4, Red Cell Distribution Width 11.1L, Platelet Count 227, Mean Platelet Volume 7.1, Neutrophils (%) (Auto) 65.5, Lymphocytes (%) (Auto) 13.2L, Monocytes (%) (Auto) 14.3H, Eosinophils (%) (Auto ) 5.9H, Basophils (%) (Auto) 1.2, Sodium Level 143, Potassium Level 3.8, Chloride Level 105, Carbon Dioxide Level 29, Anion Gap 9, Blood Urea Nitrogen 19H, Creatinine 1.1, Estimat Glomerular Filtration Rate > 60, Glucose Level 100 , Calcium Level 10.3H, Total Bilirubin 1.0, Aspartate Amino Transf (AST/SGOT) 35 , Alanine Aminotransferase (ALT/SGPT) 43, Alkaline Phosphatase 67, Total Protein 6.0L, Albumin 3.1L, Globulin 2.9, Albumin/Globulin Ratio 1.1 Height (Feet): 6 Height (Inches): 0.00 Weight (Pounds): 200 Objective WDWN WM NCAT supple CTA, decreased (R) BS RRR Abd distended, softer than yesterday no edema Chula Buchanan MD Jun 29, 2018 18:01
--- NOTE | 2018-06-29 19:23 | NUR ---
HAND-OFF: Report given to Jeanne Sr RN. Patient sitting up in bed, awake and alert, bed in lowest position, call light within reach, antibiotics running into bilateral forearms, oxygen at 2 liters nasal cannula, urinal at bedside.
[2018-06-29 20:00] VITALS: BP 149/77
[2018-06-29] MEDS: Tamsulosin 0.4mg cap ORAL SCH (20:49)
[2018-06-30] VITALS: BP 137/98
[2018-06-30] MEDS: Piperacillin/Tazobactam 3.375 GM in D5W 110 ML IVPB SCH ×3 (01:29→16:33)
[2018-06-30 04:00] VITALS: BP 145/90
[2018-06-30 05:58] LABS: BASOPHILS % (AUTO) 1.8 % (0.0-2.0); EOSINOPHILS % (AUTO) 5.6 % (0.0-3.0); HEMOGLOBIN 17.2 G/DL (14.2-18.0); LYMPHOCYTES % (AUTO) 16.5 % (20.0-45.0); MEAN CORPUSCULAR VOLUME 97 FL (80-99); MONOCYTES % (AUTO) 13.3 % (1.0-10.0); NEUTROPHILS % (AUTO) 62.9 % (45.0-75.0); PLATELET COUNT 232 K/UL (150-450); RED BLOOD COUNT 5.05 M/UL (4.70-6.10); RED CELL DISTRIBUTION WIDTH 11.2 % (11.6-14.8); WHITE BLOOD COUNT 10.4 K/UL (4.8-10.8)
[2018-06-30 06:23] LABS: ALANINE AMINOTRANSFERASE 45 U/L (12-78); ALBUMIN 3.1 G/DL (3.4-5.0); ALBUMIN/GLOBULIN RATIO 1.1 (1.0-2.7); ALKALINE PHOSPHATASE 59 U/L (46-116); ANION GAP 7 mmol/L (5-15); ASPARTATE AMINO TRANSFERASE 38 U/L (15-37); BILIRUBIN,TOTAL 1.1 MG/DL (0.2-1.0); BLOOD UREA NITROGEN 15 mg/dL (7-18); CARBON DIOXIDE 28 MMOL/L (21-32); CHLORIDE 106 MMOL/L (98-107); CREATININE 1.2 MG/DL (0.55-1.30); POTASSIUM 3.4 MMOL/L (3.5-5.1); SODIUM 141 MMOL/L (136-145)
[2018-06-30 06:26] LABS: BILIRUBIN,DIRECT 0.3 MG/DL (0.0-0.3)
[2018-06-30] MEDS ORDERED: Vancomycin 1250mg/D5W 250ml IVPB SCH (07:00)
--- NOTE | 2018-06-30 07:09 | General Progress Note ---
Assessment/Plan Problem List: (1) Sepsis Assessment & Plan: likely GI source vs CAP/PNA vs effusion wbc improving s/p thoracentesis ct done with massive right sided pleural effusion s//p thoracentesis patient on broad spectrum abx vanco, zosyn, azithro.. pending fluid studies.. plan for dc levon if wbc still stable with appropriate abx ID consulted, appreciate recs cont close monitoring ICD Codes: A41.9 - Sepsis, unspecified organism SNOMED: 03468921 (2) Small bowel obstruction Assessment & Plan: SBO ct showing fecal impaction multiple BMs after bowel care, improving severe abd pain pain control GI consult appreciate close monitoring ICD Codes: K56.609 - Unspecified intestinal obstruction, unspecified as to partial versus complete obstruction SNOMED: 663140489 (3) Acute abdominal pain Assessment & Plan: due to severe constipation CT abd/pelvis reviewed, showing fecal impaction, no ischemia noted, repeat imaging per surgery enema bowel care suppository gi consult appreciated monitor closely ICD Codes: R10.9 - Unspecified abdominal pain SNOMED: 573181013 (4) Fecal impaction Assessment & Plan: as per above cont bowel care gi consult ICD Codes: K56.41 - Fecal impaction SNOMED: 92419278 (5) Back pain at L4-L5 level Assessment & Plan: likely muscle spasms vs nerve impingement pt refused MRI due to claustrophobia, states back pain has improved, no associated neuropathy resume muscle relaxants gabapentin cyclobenzaprine morphine 2mg IV q6hrs ICD Codes: M54.5 - Low back pain SNOMED: 854732307 (6) DEANNA (acute kidney injury) Assessment & Plan: due to dehydration Cr 1.1 on admit, pending repeat labs, cont IVF likely prerenal IVF monitor closely ICD Codes: N17.9 - Acute kidney failure, unspecified SNOMED: 95928580 (7) Dehydration Assessment & Plan: IVF for hydration monitor closely NS 100cc/hr ICD Codes: E86.0 - Dehydration SNOMED: 03771620 (8) AIDS Assessment & Plan: cont home meds ICD Codes: B20 - Human immunodeficiency virus [HIV] disease SNOMED: 63611737 (9) HIV (human immunodeficiency virus infection) Assessment & Plan: resume home meds ICD Codes: B20 - Human immunodeficiency virus [HIV] disease SNOMED: 03569286 Status: stable Assessment/Plan diet: clear liquid , adat DVT Prophylaxis: SCD, HSQ Code Status: Full Hospital Classification Declaration: Based on this initial evaluation, and depending on the patient's clinical course, I anticipate that this patient will require hospitalization for 2-3 midnights for severe back pain and abdominal pain and close respiratory/hemodynamic monitoring. Disposition: Once the patient is stable to leave the hospital, I anticipate the patient will likely be discharged to the following environment: home I spent 55 minutes on this patient's case, and 38 minutes were dedicated to counseling and/or care coordination. Discussed with patient/family, nursing staff, SW/CM, abd consultants regarding clinical status, treatment course, and disposition planning. Time of note may not reflect time of encounter. -- Date of Discussion: 06/23/18 A [id number] discussion with the patient regarding the patient's advanced care planning took place during this hospitalization on the above date. The discussion included the explanation and discussion of advance directives and associated forms/documents, as well as the patient's current code status. We also discussed at length the patient's medical conditions (both acute and chronic), general prognosis, treatment options, and goals of care. The following summarizes the discussion: Advance Care Planning/Goals of Care: - Will attempt to fill out an AD and/or POLST with the patient prior to discharge, if not already completed - Continue current evaluation and management of any acute and chronic medical issues - Will continue to support the patient/family - Will continue to discuss both short- and long-term goals of care DPOA-HC/Surrogate Decision Maker: None currently appointed . He does not have any friends/family that could support him or help him if needed Code Status: DNR/DNI AD Forms/Documents Completed: Deferred A total of 35 minutes was spent on this discussion, including counseling, answering questions, and completing, if any, pertinent advanced care planning forms/documents. Subjective Date patient seen: Jun 30, 2018 Time patient seen: 07:07 Allergies: Coded Allergies: No Known Allergies (Unverified , 06/23/18) Subjective f/u sbo, abdominal distention, intractable abdominal pain, back pain, massive pleural effusion s/p thoracentesis abd pain improving, had multiple BMs, no nausea/vomiting denies fevers/chills feeling better discussed that we are still waiting for fluid results and will plan dc tomorrow with appropriate abx per ID recs no acute events overnight ROS: 14 point ROS negative except per above HPI Objective Last 24 Hour Vital Signs Date Time Temp Pulse Resp B/P (MAP) Pulse Ox O2 Delivery O2 Flow Rate FiO2 06/30/18 04:00 112 06/30/18 04:00 98.3 109 20 145/90 (108) 95 06/30/18 00:52 81 20 Room Air 21 06/30/18 00:00 113 06/30/18 00:00 98.2 111 20 137/98 (111) 92 06/29/18 21:00 Room Air 2.0 Nasal Cannula Room Air 06/29/18 20:53 124 149/77 06/29/18 20:00 98.4 121 23 149/77 (101) 92 06/29/18 18:05 97.5 06/29/18 17:18 106 18 96 Room Air 06/29/18 17:10 104 18 96 Room Air 06/29/18 16:00 124 06/29/18 16:00 97.5 116 20 152/81 (104) 94 06/29/18 12:00 98.2 107 20 157/103 (121) 93 06/29/18 12:00 116 06/29/18 11:31 181/119 06/29/18 09:00 Nasal Cannula 2.0 Nasal Cannula 2.0 06/29/18 08:18 89 172/106 06/29/18 08:00 123 06/29/18 08:00 97.7 89 20 172/106 (128) 95 Intake and Output 06/29/18 06/30/18 19:00 07:00 Intake Total 1508.5 ml 200 ml Output Total 300 ml 800 ml Balance 1208.5 ml -600 ml Intake Oral 1270 ml 200 ml IV Total 238.5 ml Output Urine Total 300 ml 800 ml # Voids 4 3 # Bowel Movements 2 2 Laboratory Tests 06/29/18 08:00: Urine Legionella Antigen [Pending] 06/29/18 08:45: White Blood Count 12.2H, Red Blood Count 5.23, Hemoglobin 17.5, Hematocrit 50.9 , Mean Corpuscular Volume 97, Mean Corpuscular Hemoglobin 33.5H, Mean Corpuscular Hemoglobin Concent 34.4, Red Cell Distribution Width 11.1L, Platelet Count 227, Mean Platelet Volume 7.1, Neutrophils (%) (Auto) 65.5, Lymphocytes (%) (Auto) 13.2L, Monocytes (%) (Auto) 14.3H, Eosinophils (%) (Auto ) 5.9H, Basophils (%) (Auto) 1.2, Sodium Level 143, Potassium Level 3.8, Chloride Level 105, Carbon Dioxide Level 29, Anion Gap 9, Blood Urea Nitrogen 19H, Creatinine 1.1, Estimat Glomerular Filtration Rate > 60, Glucose Level 100 , Calcium Level 10.3H, Total Bilirubin 1.0, Aspartate Amino Transf (AST/SGOT) 35 , Alanine Aminotransferase (ALT/SGPT) 43, Alkaline Phosphatase 67, Total Protein 6.0L, Albumin 3.1L, Globulin 2.9, Albumin/Globulin Ratio 1.1 06/30/18 05:30: White Blood Count 10.4, Red Blood Count 5.05, Hemoglobin 17.2, Hematocrit 49.0, Mean Corpuscular Volume 97, Mean Corpuscular Hemoglobin 34.1H, Mean Corpuscular Hemoglobin Concent 35.1, Red Cell Distribution Width 11.2L, Platelet Count 232, Mean Platelet Volume 7.9, Neutrophils (%) (Auto) 62.9, Lymphocytes (%) (Auto) 16.5L, Monocytes (%) (Auto) 13.3H, Eosinophils (%) (Auto) 5.6H, Basophils (%) ( Auto) 1.8, Sodium Level 141, Potassium Level 3.4L, Chloride Level 106, Carbon Dioxide Level 28, Anion Gap 7, Blood Urea Nitrogen 15, Creatinine 1.2, Estimat Glomerular Filtration Rate > 60, Glucose Level 114H, Calcium Level 10.0, Total Bilirubin 1.1H, Aspartate Amino Transf (AST/SGOT) 38H, Alanine Aminotransferase (ALT/SGPT) 45, Alkaline Phosphatase 59, Total Protein 5.8L, Albumin 3.1L, Globulin 2.7, Albumin/Globulin Ratio 1.1, Erythrocyte Sedimentation Rate [ Pending], Direct Bilirubin 0.3, C-Reactive Protein, Quantitative 1.7H, Vancomycin Level Trough 7.5 Height (Feet): 6 Height (Inches): 0.00 Weight (Pounds): 200 Objective General Appearance: WD/WN, alert, mild distress Lines, tubes and drains: peripheral HEENT: normocephalic Neck: non-tender, normal alignment, supple, normal inspection Respiratory/Chest: chest wall non-tender, lungs clear, normal breath sounds, no respiratory distress, no accessory muscle use Cardiovascular/Chest: normal peripheral pulses, normal rate, regular rhythm Abdomen: no organomegaly, no mass, decreased bowel sounds, other - abdominal distention, mild ttp diffusely Extremities: normal range of motion, non-tender, normal inspection, no calf tenderness Skin Exam: normal pigmentation, warm/dry 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
--- NOTE | 2018-06-30 07:28 | NUR ---
NURSE NOTES: Received report from SHALOM Angel. Patient is eating breakfast and in stable condition. No acute distress/SOB noted. Will continue plan of care.
[2018-06-30 08:00] VITALS: BP 142/81
[2018-06-30] MEDS: Vancomycin 1gm/D5W 275ml IVPB SCH ×4 (08:15→21:26)
--- NOTE | 2018-06-30 08:18 | NUR ---
HAND-OFF: Report given to Raza RAUSCH.
[2018-06-30] MEDS: Azithromycin 250mg tab ORAL SCH (08:48)
[2018-06-30] MEDS: Docusate 100mg cap ORAL SCH ×3 (08:48→17:34)
[2018-06-30] MEDS: Metoprolol 25mg tab ORAL SCH ×2 (08:49→21:27)
[2018-06-30] MEDS: Cyclobenzaprine 10mg Tab ORAL SCH ×3 (08:49→17:34)
[2018-06-30] MEDS: Pantoprazole Inj IVP SCH (08:50)
[2018-06-30] MEDS: TRIUMEQ ORAL SCH (08:50)
[2018-06-30] MEDS: Heparin 5000 units/ml inj SUBQ SCH ×2 (08:51→21:28)
--- NOTE | 2018-06-30 10:14 | Diagnostic Imaging Report ---
Indication: Cough Comparison: 06/28/2018 chest x-ray postthoracentesis A single view chest radiograph was obtained. Findings: Large pleural-based density again noted on the right presumably on the basis of residual pleural effusion or other pathology such as parenchymal consolidation, atelectasis or mass. We note that a thoracentesis yielded approximately 1 L of fluid 1-2 days earlier. Radiographically no significant change is appreciated from the previous examination. Heart size is stable. Trachea is midline. IMPRESSION: No significant radiographic change compared to the postthoracentesis film obtained 06/28/2018.
--- NOTE | 2018-06-30 10:24 | General Surgery Progress Note ---
General Surgery-Progress Note Subjective Symptoms: improved, tolerating diet, passing flatus Objective Last 24 Hour Vital Signs Date Time Temp Pulse Resp B/P (MAP) Pulse Ox O2 Delivery O2 Flow Rate FiO2 06/30/18 08:49 120 142/81 06/30/18 08:00 98.1 120 20 142/81 (101) 96 06/30/18 08:00 120 20 Room Air 21 06/30/18 04:00 112 06/30/18 04:00 98.3 109 20 145/90 (108) 95 06/30/18 00:52 81 20 Room Air 21 06/30/18 00:00 113 06/30/18 00:00 98.2 111 20 137/98 (111) 92 06/29/18 21:00 Room Air 2.0 Nasal Cannula Room Air 06/29/18 20:53 124 149/77 06/29/18 20:00 98.4 121 23 149/77 (101) 92 06/29/18 18:05 97.5 06/29/18 17:18 106 18 96 Room Air 06/29/18 17:10 104 18 96 Room Air 06/29/18 16:00 124 06/29/18 16:00 97.5 116 20 152/81 (104) 94 06/29/18 12:00 98.2 107 20 157/103 (121) 93 06/29/18 12:00 116 06/29/18 11:31 181/119 I&O Intake and Output 06/29/18 06/30/18 18:59 06:59 Intake Total 1618.5 ml 200 ml Output Total 300 ml 800 ml Balance 1318.5 ml -600 ml Intake Oral 1270 ml 200 ml IV Total 348.5 ml Output Urine Total 300 ml 800 ml # Voids 4 3 # Bowel Movements 2 2 Drains: none Cardiovascular: RSR Respiratory: clear, decreased breath sounds Abdomen: soft, non-tender, present bowel sounds Extremities: no cyanosis Laboratory Tests Test 06/30/18 05:30 White Blood Count 10.4 K/UL (4.8-10.8) Red Blood Count 5.05 M/UL (4.70-6.10) Hemoglobin 17.2 G/DL (14.2-18.0) Hematocrit 49.0 % (42.0-52.0) Mean Corpuscular Volume 97 FL (80-99) Mean Corpuscular Hemoglobin 34.1 PG (27.0-31.0) H Mean Corpuscular Hemoglobin Concent 35.1 G/DL (32.0-36.0) Red Cell Distribution Width 11.2 % (11.6-14.8) L Platelet Count 232 K/UL (150-450) Mean Platelet Volume 7.9 FL (6.5-10.1) Neutrophils (%) (Auto) 62.9 % (45.0-75.0) Lymphocytes (%) (Auto) 16.5 % (20.0-45.0) L Monocytes (%) (Auto) 13.3 % (1.0-10.0) H Eosinophils (%) (Auto) 5.6 % (0.0-3.0) H Basophils (%) (Auto) 1.8 % (0.0-2.0) Erythrocyte Sedimentation Rate 1 MM/HR (0-20) Sodium Level 141 MMOL/L (136-145) Potassium Level 3.4 MMOL/L (3.5-5.1) L Chloride Level 106 MMOL/L (98-107) Carbon Dioxide Level 28 MMOL/L (21-32) Anion Gap 7 mmol/L (5-15) Blood Urea Nitrogen 15 mg/dL (7-18) Creatinine 1.2 MG/DL (0.55-1.30) Estimat Glomerular Filtration Rate > 60 mL/min (>60) Glucose Level 114 MG/DL (74-106) H Calcium Level 10.0 MG/DL (8.5-10.1) Total Bilirubin 1.1 MG/DL (0.2-1.0) H Direct Bilirubin 0.3 MG/DL (0.0-0.3) Aspartate Amino Transf (AST/SGOT) 38 U/L (15-37) H Alanine Aminotransferase (ALT/SGPT) 45 U/L (12-78) Alkaline Phosphatase 59 U/L (46-116) C-Reactive Protein, Quantitative 1.7 mg/dL (0.00-0.90) H Total Protein 5.8 G/DL (6.4-8.2) L Albumin 3.1 G/DL (3.4-5.0) L Globulin 2.7 g/dL Albumin/Globulin Ratio 1.1 (1.0-2.7) Vancomycin Level Trough 7.5 ug/mL (5.0-12.0) Plan Problems: (1) Acute abdominal pain Assessment & Plan: acute generalized abdominal cramping bloating pain tender leukocytosis lactic acidosis. since leukocytosis, lactic acidosis, and tenderness/pain improving in the last 24hrs. etiology of initial presentation unknown still. kub without obstruction CT noted without significant pathology CT with massive pleural effusion s/p US guided thoracentesis okay for diet IV fluids IV abx will follow with recs no acute surgical intervention planned appreciate pulm input thank you Romain Jhaveri Jun 30, 2018 10:24
[2018-06-30] MEDS ORDERED: Isovue-300 100ml vial INJ PRN (11:00)
--- NOTE | 2018-06-30 11:03 | Pulmonology Progress Note ---
Assessment/Plan Problems: (1) Pleural disorder (2) Pleural effusion (3) Acute abdominal pain (4) Fecal impaction (5) DEANNA (acute kidney injury) (6) HIV (human immunodeficiency virus infection) Assessment/Plan Repeat thoracentesis with pleural fluid studies CT chest Abx & cART per ID Pain control/supportive care Diet per surgery/GI DVT Px: Hep SQ Subjective Allergies: Coded Allergies: No Known Allergies (Unverified , 06/23/18) Subjective AFVSS on RA CXR with persistent effusion ? pleural based density No cough, no SOB, no F/C, no CP Sherman PO, + flatus pain better Objective Last 24 Hour Vital Signs Date Time Temp Pulse Resp B/P (MAP) Pulse Ox O2 Delivery O2 Flow Rate FiO2 06/30/18 09:00 Room Air Room Air Room Air 06/30/18 08:49 120 142/81 06/30/18 08:00 121 06/30/18 08:00 98.1 120 20 142/81 (101) 96 06/30/18 08:00 120 20 Room Air 21 06/30/18 04:00 112 06/30/18 04:00 98.3 109 20 145/90 (108) 95 06/30/18 00:52 81 20 Room Air 21 06/30/18 00:00 113 06/30/18 00:00 98.2 111 20 137/98 (111) 92 06/29/18 21:00 Room Air 2.0 Nasal Cannula Room Air 06/29/18 20:53 124 149/77 06/29/18 20:00 98.4 121 23 149/77 (101) 92 06/29/18 18:05 97.5 06/29/18 17:18 106 18 96 Room Air 06/29/18 17:10 104 18 96 Room Air 06/29/18 16:00 124 06/29/18 16:00 97.5 116 20 152/81 (104) 94 06/29/18 12:00 98.2 107 20 157/103 (121) 93 06/29/18 12:00 116 06/29/18 11:31 181/119 Intake and Output 06/29/18 06/30/18 18:59 06:59 Intake Total 1618.5 ml 200 ml Output Total 300 ml 800 ml Balance 1318.5 ml -600 ml Intake Oral 1270 ml 200 ml IV Total 348.5 ml Output Urine Total 300 ml 800 ml # Voids 4 3 # Bowel Movements 2 2 General Appearance: WD/WN, no acute distress HEENT: normocephalic, atraumatic, anicteric, mucous membranes moist Respiratory/Chest: chest wall non-tender, lungs clear, normal breath sounds, no respiratory distress, no accessory muscle use Cardiovascular: normal peripheral pulses, normal rate, regular rhythm Abdomen: normal bowel sounds, soft, non tender, no organomegaly, non distended , no mass Extremities: no cyanosis, no clubbing, no edema Laboratory Tests 06/30/18 05:30: White Blood Count 10.4, Red Blood Count 5.05, Hemoglobin 17.2, Hematocrit 49.0, Mean Corpuscular Volume 97, Mean Corpuscular Hemoglobin 34.1H, Mean Corpuscular Hemoglobin Concent 35.1, Red Cell Distribution Width 11.2L, Platelet Count 232, Mean Platelet Volume 7.9, Neutrophils (%) (Auto) 62.9, Lymphocytes (%) (Auto) 16.5L, Monocytes (%) (Auto) 13.3H, Eosinophils (%) (Auto) 5.6H, Basophils (%) ( Auto) 1.8, Erythrocyte Sedimentation Rate 1, Sodium Level 141, Potassium Level 3.4L, Chloride Level 106, Carbon Dioxide Level 28, Anion Gap 7, Blood Urea Nitrogen 15, Creatinine 1.2, Estimat Glomerular Filtration Rate > 60, Glucose Level 114H, Calcium Level 10.0, Total Bilirubin 1.1H, Direct Bilirubin 0.3, Aspartate Amino Transf (AST/SGOT) 38H, Alanine Aminotransferase (ALT/SGPT) 45, Alkaline Phosphatase 59, C-Reactive Protein, Quantitative 1.7H, Total Protein 5.8L, Albumin 3.1L, Globulin 2.7, Albumin/Globulin Ratio 1.1, Vancomycin Level Trough 7.5 Current Medications Medications (Trade) Dose Ordered Sig/Mitzi Route PRN Reason Start Time Stop Time Status Last Admin Dose Admin Azithromycin (Zithromax) 500 mg DAILY ORAL 06/29/18 09:00 07/06/18 08:59 06/30/18 08:48 Cyclobenzaprine HCl (Flexeril) 10 mg THREE TIMES A DAY ORAL 06/23/18 20:30 07/23/18 20:29 06/30/18 08:49 Docusate Sodium (Colace) 100 mg THREE TIMES A DAY ORAL 06/23/18 18:00 07/23/18 17:59 06/30/18 08:48 Gabapentin (Neurontin) 300 mg BID ORAL 06/23/18 20:30 07/23/18 20:29 06/30/18 08:50 Heparin Sodium (Porcine) (Heparin 5000 units/ml) 5,000 units EVERY 12 HOURS SUBQ 06/23/18 21:00 07/23/18 20:59 06/30/18 08:51 Hydralazine HCl (Apresoline) 10 mg Q6H PRN IV For High Blood Pressure 06/23/18 21:30 07/23/18 21:29 06/29/18 11:31 Ipratropium Norris (Atrovent) 500 mcg Q4H PRN HHN Shortness of Breath 06/27/18 09:45 07/02/18 09:44 Metoprolol Tartrate (Lopressor) 25 mg Q12HR ORAL 06/23/18 21:00 07/23/18 20:59 06/30/18 08:49 Morphine Sulfate (Morphine Sulfate) 2 mg Q4H PRN IVP For Pain 06/24/18 21:30 07/01/18 21:29 06/26/18 08:56 Ondansetron HCl (Zofran) 4 mg Q6H PRN IVP Nausea & Vomiting 06/23/18 19:00 07/23/18 18:59 06/24/18 13:43 Pantoprazole (Protonix) 40 mg DAILY IVP 06/24/18 09:00 07/24/18 08:59 06/30/18 08:50 Patient Own Medication (Patient's Own Med) 1 ea DAILY ORAL 06/24/18 17:00 07/24/18 16:59 06/30/18 08:50 Piperacillin Sod/ Tazobactam Sod 3.375 gm/Dextrose 110 ml @ 27.5 mls/hr Q8H IVPB 06/25/18 17:00 07/02/18 16:59 06/30/18 08:17 Tamsulosin HCl (Flomax) 0.4 mg BEDTIME ORAL 06/23/18 21:00 07/23/18 20:59 06/29/18 20:49 Vancomycin HCl (Vanco rx to dose) 1 ea DAILY PRN MISC Per rx protocol 06/28/18 17:30 07/28/18 17:29 Vancomycin HCl 1 gm/Dextrose 275 ml @ 183.708 mls/hr Q12H IVPB 06/30/18 08:30 07/05/18 08:29 06/30/18 08:15 Perry Wall MD Jun 30, 2018 11:03
[2018-06-30 12:00] VITALS: BP 151/90
--- NOTE | 2018-06-30 13:09 | NUR ---
[employer]URANCE REVIEW AND [employer]ICALS FAXED TO [facility] T: [phone] F: [phone] REF #[id number]
--- NOTE | 2018-06-30 13:52 | NUR ---
RADIOLOGY DEPT CHEST X-RAY DONE.-P.DYE
[2018-06-30] MEDS ORDERED: Tubing IV Secondary IV ONE (14:41)
--- NOTE | 2018-06-30 15:12 | Diagnostic Imaging Report ---
Indications: Pleural effusion Technique: Ultrasound used to localize optimal puncture site. Sterile prepping and draping of the right lower chest performed. Local anesthesia with 1% lidocaine. Dermatotomy made. Puncture of the pleural space using thoracentesis needle. Stylet removed. Aspiration resulted in 80 cc of cloudy xochilt fluid sent for diagnostic purposes. Catheter placed to vacuum bottle suction. Very little additional fluid could be obtained using vacuum. The catheter was manipulated in different positions to no avail. Patient tolerated procedure well, without immediate complication. Findings: Followup sonography demonstrates large, multiloculated pleural fluid. Followup chest x-ray shows no pneumothorax. Impression: Diagnostic ultrasound-guided right thoracentesis, yielding 80 cc of fluid. Despite my efforts and due to the multiloculated nature of the pleural fluid, only a small amount of fluid could be obtained on the current procedure. 2 days earlier, about 900 cc was obtained with considerable residual. Would advise against repeated thoracenteses by radiology. May consider surgery or standard large bore chest tube for larger volume fluid removal.
--- NOTE | 2018-06-30 15:19 | Diagnostic Imaging Report ---
Indication: Pleural effusion. Technique: Continuous helical transaxial imaging of the chest was obtained from the thoracic inlet to the upper abdomen after intravenous nonionic contrast administration. Coronal 2-D reformats were also obtained. Automatic Exposure Control was utilized. Total Dose length Product (DLP): 1032.[address] Dose Index Volume (CTDIvol): 25.48 mGy Comparison: none Findings: There is a large, multiloculated pleural effusion in the right side. The loculated nature of the fluid is under appreciated on the current CT scan and much better appreciated on the ultrasound obtained earlier. There is a complete atelectasis of the right lower lobe and partial atelectasis of the right upper lobe. There is evidence of generalized thickening of the parietal pleura at the right lung base. The nature of the thickening is unknown. The left lung appears clear. There is slight deviation of the trachea to the left. The heart is unremarkable. Aorta is mildly ectatic. Visualized part of the upper abdomen is unremarkable. No adenopathy appreciated. IMPRESSION: Large right pleural effusion with associated near complete collapse of the right lung. Multiple loculations and septa are better appreciated on the ultrasound examination. Pleural thickening and enhancement noted. Findings may be inflammatory/infectious versus neoplastic. Diagnostic thoracentesis results are pending. The CT scanner at [facility] is accredited by the [employer] and the scans are performed using dose optimization techniques as appropriate to a performed exam including Automatic Exposure control.
--- NOTE | 2018-06-30 15:48 | NUR ---
RADIOLOGY DEPT CHEST X-RAY POST THORACENTHESIS PERFORMED.-P.DYE
[2018-06-30 16:00] VITALS: BP 148/108
--- NOTE | 2018-06-30 16:02 | Diagnostic Imaging Report ---
Indication: Status post thoracentesis Comparison: Earlier today 09:29 A single view chest radiograph was obtained. Findings: No pneumothorax seen. Large right pleural effusion unchanged. Heart size is stable. IMPRESSION: No pneumothorax
--- NOTE | 2018-06-30 19:15 | NUR ---
HAND-OFF: Report given to SHALOM Salinas. Patient is in stable condition. No acute distress/SOB noted. Endorsed plan of care.
--- NOTE | 2018-06-30 19:17 | NUR ---
NURSE NOTES: Pt received from SHALOM Person alert and oriented x4 with no complaints or s/s of pain, SOB, or n/v. Pt stated that he would like a sleeping pill for tonight because he has been unable to get any sleep since his stay. RN stated that he does not have any PRN sleeping med right now but she will contact the doctor for orders, pt verbalized understanding. IV site asymptomatic and patent, running to Zosyn IV. Bed in lowest position, call light within reach.
[2018-06-30] MEDS ORDERED: Zolpidem 5mg tab ORAL PRN (19:30)
--- NOTE | 2018-06-30 19:34 | NUR ---
NURSE NOTES: RN called Dr. Hardy's office for sleeping pill PRN and spoke with Dr. Vandana Loya and obtained orders for Ambien 5 mg PO HSPRN. Will carry out orders.
[2018-06-30 20:00] VITALS: BP 156/106
--- NOTE | 2018-06-30 20:09 | Infectious Diseases Prog Note ---
Assessment/Plan Assessment/Plan ASSESSMENT AND PLAN: 1. sepsis, leukocytosis, fevers, ? cap pna vs atx, effusion, ? empyema, elevated lactic acid, ? source - vancomycin, zosyn and azithromycin - f/u on thoracentesis results, check serology, check labs, f/u chest x-ray 2. hiv, aids - cd4 is 277, VL - ND - continue Triumeq 3. back pain 4. Questionable history of hypertension. He has elevated blood pressure. 5. History of acute kidney injury. Creatinine seems to be stable 6. Dehydration. On intravenous fluids. 7. No known allergies. 8. Social history is negative. 9. Family history is noncontributory. 10. MAR was noted. 11. Case was discussed with RN. 12. Case was discussed with primary care team. Subjective Constitutional: Denies: fever HEENT: Reports: congestion - less Respiratory: Reports: shortness of breath - less Cardiovascular: Denies: chest pain Gastrointestinal/Abdominal: Denies: nausea, vomiting, diarrhea Genitourinary: Denies: dysuria Neurologic: Denies: headache, numbness Psychiatric: Denies: depression Skin: Denies: rash Hematologic: Denies: bleeding Musculoskeletal: Denies: pain Allergies: Coded Allergies: No Known Allergies (Unverified , 06/23/18) Objective Vital Signs Last 24 Hour Vital Signs Date Time Temp Pulse Resp B/P (MAP) Pulse Ox O2 Delivery O2 Flow Rate FiO2 06/30/18 16:00 115 06/30/18 16:00 97.1 71 21 148/108 (121) 95 06/30/18 12:00 106 06/30/18 12:00 98.0 115 20 151/90 (110) 97 06/30/18 09:00 Room Air Room Air Room Air 06/30/18 08:49 120 142/81 06/30/18 08:00 121 06/30/18 08:00 98.1 120 20 142/81 (101) 96 06/30/18 08:00 120 20 Room Air 06/30/18 04:00 112 06/30/18 04:00 98.3 109 20 145/90 (108) 95 06/30/18 00:52 81 20 Room Air 06/30/18 00:00 113 06/30/18 00:00 98.2 111 20 137/98 (111) 92 06/29/18 21:00 Room Air 2.0 Nasal Cannula Room Air 06/29/18 20:53 124 149/77 Height (Feet): 6 Height (Inches): 0.00 Weight (Pounds): 200 General Appearance: no acute distress HEENT: normocephalic, atraumatic, anicteric, mucous membranes moist Respiratory/Chest: no accessory muscle use, decreased breath sounds, crackles/ rales, rhonchi - bilaterally Cardiovascular: regular rhythm, no gallop/murmur, no JVD Abdomen: normal bowel sounds, soft, non tender Genitourinary: other - no luther Extremities: no cyanosis Skin: no rash Neurologic/Psychiatric: dam tender II-XII grossly normal, abnormal gait, oriented x 3 , responsive Lymphatic: no neck adenopathy Musculoskeletal: no effusion Objective Chest x-ray - 06/28/18 - Findings: There is persistent near complete opacification of the right hemithorax, despite recent thoracentesis with removal of 900 mL of fluid. No pneumothorax demonstrated. Left lung and pleural space remain clear. Impression: Persistent near complete opacification of the right hemithorax, despite recent thoracentesis with removal of 900 mL of fluid. This likely represents combination of persistent right lung atelectasis and persistent undrained pleural fluid No evidence of pneumothorax Left lung and pleural space remain clear CT abdomen and pelvis - 06/28/18 - Impression: Massive right pleural effusion, markedly enlarged since prior exam of 5 days earlier. This results in compressive atelectasis of the entire visualized right lower lobe No definite acute abdominal or pelvic process Subcentimeter low-attenuation lesions in the liver, as described. Most likely benign simple cysts or bile hamartomas. Right renal lesions which are too small to characterize, most likely benign simple cysts. No further follow-up necessary none Laboratory Tests Test 06/30/18 05:30 White Blood Count 10.4 K/UL (4.8-10.8) Red Blood Count 5.05 M/UL (4.70-6.10) Hemoglobin 17.2 G/DL (14.2-18.0) Hematocrit 49.0 % (42.0-52.0) Mean Corpuscular Volume 97 FL (80-99) Mean Corpuscular Hemoglobin 34.1 PG (27.0-31.0) H Mean Corpuscular Hemoglobin Concent 35.1 G/DL (32.0-36.0) Red Cell Distribution Width 11.2 % (11.6-14.8) L Platelet Count 232 K/UL (150-450) Mean Platelet Volume 7.9 FL (6.5-10.1) Neutrophils (%) (Auto) 62.9 % (45.0-75.0) Lymphocytes (%) (Auto) 16.5 % (20.0-45.0) L Monocytes (%) (Auto) 13.3 % (1.0-10.0) H Eosinophils (%) (Auto) 5.6 % (0.0-3.0) H Basophils (%) (Auto) 1.8 % (0.0-2.0) Erythrocyte Sedimentation Rate 1 MM/HR (0-20) Sodium Level 141 MMOL/L (136-145) Potassium Level 3.4 MMOL/L (3.5-5.1) L Chloride Level 106 MMOL/L (98-107) Carbon Dioxide Level 28 MMOL/L (21-32) Anion Gap 7 mmol/L (5-15) Blood Urea Nitrogen 15 mg/dL (7-18) Creatinine 1.2 MG/DL (0.55-1.30) Estimat Glomerular Filtration Rate > 60 mL/min (>60) Glucose Level 114 MG/DL (74-106) H Calcium Level 10.0 MG/DL (8.5-10.1) Total Bilirubin 1.1 MG/DL (0.2-1.0) H Direct Bilirubin 0.3 MG/DL (0.0-0.3) Aspartate Amino Transf (AST/SGOT) 38 U/L (15-37) H Alanine Aminotransferase (ALT/SGPT) 45 U/L (12-78) Alkaline Phosphatase 59 U/L (46-116) C-Reactive Protein, Quantitative 1.7 mg/dL (0.00-0.90) H Total Protein 5.8 G/DL (6.4-8.2) L Albumin 3.1 G/DL (3.4-5.0) L Globulin 2.7 g/dL Albumin/Globulin Ratio 1.1 (1.0-2.7) Vancomycin Level Trough 7.5 ug/mL (5.0-12.0) Current Medications Medications (Trade) Dose Ordered Sig/Mitzi Route PRN Reason Start Time Stop Time Status Last Admin Dose Admin Azithromycin (Zithromax) 500 mg DAILY ORAL 06/29/18 09:00 07/06/18 08:59 06/30/18 08:48 Cyclobenzaprine HCl (Flexeril) 10 mg THREE TIMES A DAY ORAL 06/23/18 20:30 07/23/18 20:29 06/30/18 17:34 Docusate Sodium (Colace) 100 mg THREE TIMES A DAY ORAL 06/23/18 18:00 07/23/18 17:59 06/30/18 17:34 Gabapentin (Neurontin) 300 mg BID ORAL 06/23/18 20:30 07/23/18 20:29 06/30/18 17:34 Heparin Sodium (Porcine) (Heparin 5000 units/ml) 5,000 units EVERY 12 HOURS SUBQ 06/23/18 21:00 07/23/18 20:59 06/30/18 08:51 Hydralazine HCl (Apresoline) 10 mg Q6H PRN IV For High Blood Pressure 06/23/18 21:30 07/23/18 21:29 06/29/18 11:31 Iopamidol (Isovue-300 100ml) 100 ml NOW PRN INJ Radiology Procedure 06/30/18 11:00 07/02/18 10:58 Ipratropium Victor (Atrovent) 500 mcg Q4H PRN HHN Shortness of Breath 06/27/18 09:45 07/02/18 09:44 Metoprolol Tartrate (Lopressor) 25 mg Q12HR ORAL 06/23/18 21:00 07/23/18 20:59 06/30/18 08:49 Morphine Sulfate (Morphine Sulfate) 2 mg Q4H PRN IVP For Pain 06/24/18 21:30 07/01/18 21:29 06/26/18 08:56 Ondansetron HCl (Zofran) 4 mg Q6H PRN IVP Nausea & Vomiting 06/23/18 19:00 07/23/18 18:59 06/24/18 13:43 Pantoprazole (Protonix) 40 mg DAILY ORAL 07/01/18 09:00 07/31/18 08:59 Patient Own Medication (Patient's Own Med) 1 ea DAILY ORAL 06/24/18 17:00 07/24/18 16:59 06/30/18 08:50 Piperacillin Sod/ Tazobactam Sod 3.375 gm/Dextrose 110 ml @ 27.5 mls/hr Q8H IVPB 06/25/18 17:00 07/02/18 16:59 06/30/18 16:33 Tamsulosin HCl (Flomax) 0.4 mg BEDTIME ORAL 06/23/18 21:00 07/23/18 20:59 06/29/18 20:49 Vancomycin HCl (Vanco rx to dose) 1 ea DAILY PRN MISC Per rx protocol 06/28/18 17:30 07/28/18 17:29 Vancomycin HCl 1 gm/Dextrose 275 ml @ 183.708 mls/hr Q12H IVPB 06/30/18 08:30 07/05/18 08:29 06/30/18 08:15 Zolpidem Tartrate (Ambien) 5 mg HSPRN PRN ORAL Insomnia 06/30/18 19:30 07/07/18 19:29 Abhinav Browne MD Jun 30, 2018 20:09
[2018-06-30] MEDS: Tamsulosin 0.4mg cap ORAL SCH (21:26)
--- NOTE | 2018-06-30 21:30 | General Progress Note ---
Assessment/Plan Assessment/Plan Assessment - constipation, resolved - (R) sided large pleural effusion - Elevated WBC concerning - lactate level concerning - but now normal - No clear serious abdominal pathology identifiable - HIV Recommendations - po as tolerated - thoracentesis per pulmonary - follow closely - Repeat LFT Subjective Allergies: Coded Allergies: No Known Allergies (Unverified , 06/23/18) Subjective Sitting in chair (+) BM feels OK no abd pain Objective Last 24 Hour Vital Signs Date Time Temp Pulse Resp B/P (MAP) Pulse Ox O2 Delivery O2 Flow Rate FiO2 06/30/18 21:27 110 156/106 06/30/18 16:00 115 06/30/18 16:00 97.1 71 21 148/108 (121) 95 06/30/18 12:00 106 06/30/18 12:00 98.0 115 20 151/90 (110) 97 06/30/18 09:00 Room Air Room Air Room Air 06/30/18 08:49 120 142/81 06/30/18 08:00 121 06/30/18 08:00 98.1 120 20 142/81 (101) 96 06/30/18 08:00 120 20 Room Air 21 06/30/18 04:00 112 06/30/18 04:00 98.3 109 20 145/90 (108) 95 06/30/18 00:52 81 20 Room Air 21 06/30/18 00:00 113 06/30/18 00:00 98.2 111 20 137/98 (111) 92 Intake and Output 06/29/18 06/30/18 19:00 07:00 Intake Total 1508.5 ml 200 ml Output Total 300 ml 800 ml Balance 1208.5 ml -600 ml Intake Oral 1270 ml 200 ml IV Total 238.5 ml Output Urine Total 300 ml 800 ml # Voids 4 3 # Bowel Movements 2 2 Laboratory Tests 06/30/18 05:30: White Blood Count 10.4, Red Blood Count 5.05, Hemoglobin 17.2, Hematocrit 49.0, Mean Corpuscular Volume 97, Mean Corpuscular Hemoglobin 34.1H, Mean Corpuscular Hemoglobin Concent 35.1, Red Cell Distribution Width 11.2L, Platelet Count 232, Mean Platelet Volume 7.9, Neutrophils (%) (Auto) 62.9, Lymphocytes (%) (Auto) 16.5L, Monocytes (%) (Auto) 13.3H, Eosinophils (%) (Auto) 5.6H, Basophils (%) ( Auto) 1.8, Erythrocyte Sedimentation Rate 1, Sodium Level 141, Potassium Level 3.4L, Chloride Level 106, Carbon Dioxide Level 28, Anion Gap 7, Blood Urea Nitrogen 15, Creatinine 1.2, Estimat Glomerular Filtration Rate > 60, Glucose Level 114H, Calcium Level 10.0, Total Bilirubin 1.1H, Direct Bilirubin 0.3, Aspartate Amino Transf (AST/SGOT) 38H, Alanine Aminotransferase (ALT/SGPT) 45, Alkaline Phosphatase 59, C-Reactive Protein, Quantitative 1.7H, Total Protein 5.8L, Albumin 3.1L, Globulin 2.7, Albumin/Globulin Ratio 1.1, Vancomycin Level Trough 7.5 Height (Feet): 6 Height (Inches): 0.00 Weight (Pounds): 200 Objective WDWN WM NCAT supple CTA, decreased (R) BS RRR Abd distended, softer than yesterday no edema Chula Buchanan MD Jun 30, 2018 21:30
[2018-07-01] VITALS: BP 151/97
[2018-07-01] MEDS ORDERED: Piperacillin/Tazobactam 3.375 GM in D5W 110 ML IVPB SCH (01:00)
[2018-07-01 04:00] VITALS: BP 160/92
--- NOTE | 2018-07-01 04:25 | NUR ---
NURSE NOTES: Pt kept disconnecting his leads from the tele box, RN advised pt that he needs to be connected to the leads so that we can be able to monitor his heart during his stay. Pt nodded his head but within half an hour, pt had gone into the bathroom and washed up, got his leads wet. RN advised pt that if he needs to wash up, to call his nurse or FIELD AGENT for assistance so that he does not get his leads wet or fall on his way to the bathroom. Pt nodded his head and verbalized that he will call. At 0300, pt disconnected his leads again.
--- NOTE | 2018-07-01 07:10 | General Progress Note ---
Assessment/Plan Assessment/Plan Assessment - constipation, resolved - (R) sided large pleural effusion - Elevated WBC concerning - lactate level concerning - but now normal - No clear serious abdominal pathology identifiable - HIV Recommendations - po as tolerated - thoracentesis per pulmonary - follow closely - Repeat LFT Subjective Allergies: Coded Allergies: No Known Allergies (Unverified , 06/23/18) Subjective Sitting in chair (+) BM feelsOK no abd pain Objective Last 24 Hour Vital Signs Date Time Temp Pulse Resp B/P (MAP) Pulse Ox O2 Delivery O2 Flow Rate FiO2 07/01/18 04:03 89 20 Room Air 21 07/01/18 04:00 98.4 110 20 160/92 (114) 96 07/01/18 04:00 123 07/01/18 00:00 112 07/01/18 00:00 98.1 108 20 151/97 (115) 94 06/30/18 21:27 110 156/106 06/30/18 21:00 Room Air Room Air Room Air 06/30/18 20:00 98.0 120 20 156/106 (123) 95 06/30/18 20:00 115 06/30/18 16:00 115 06/30/18 16:00 97.1 71 21 148/108 (121) 95 06/30/18 12:00 106 06/30/18 12:00 98.0 115 20 151/90 (110) 97 06/30/18 09:00 Room Air Room Air Room Air 06/30/18 08:49 120 142/81 06/30/18 08:00 121 06/30/18 08:00 98.1 120 20 142/81 (101) 96 06/30/18 08:00 120 20 Room Air 21 Intake and Output 06/30/18 07/01/18 19:00 07:00 Intake Total 900 ml 727.416 ml Output Total 1200 ml Balance -300 ml 727.416 ml Intake Oral 900 ml 250 ml IV Total 477.416 ml Output Urine Total 1200 ml # Voids 3 Height (Feet): 6 Height (Inches): 0.00 Weight (Pounds): 200 Objective WDWN WM NCAT supple CTA, decreased (R) BS RRR Abd distended, softer than yesterday no edema Chula Buchanan MD Jul 01, 2018 07:10
--- NOTE | 2018-07-01 07:54 | NUR ---
NURSE NOTES: Received report from Brad. Patient is AAO x3. Resting in bed eating breakfast. No pain or distress at this madiha Addendum: 07/01/18 at 0757 by Juan Antonio Ruiz RN *time.
--- NOTE | 2018-07-01 07:54 | NUR ---
HAND-OFF: Report given to SHALOM Romano and William RN.
[2018-07-01 08:00] VITALS: BP 171/106
[2018-07-01] MEDS ORDERED: AUGMENTIN 875-1 EAC1 ORAL (08:04)
[2018-07-01] MEDS ORDERED: SENNA8.6 M2 PO (08:04)
[2018-07-01] MEDS ORDERED: DOXYCYCLINE MO100 MG ORAL (08:04)
--- NOTE | 2018-07-01 08:09 | NUR ---
NURSE NOTES: Patient provided friend's number to call, . Per patient, okay to call friend.
--- NOTE | 2018-07-01 08:11 | Discharge Summary ---
Discharge Summary Hospital Course Date of Admission Jun 23, 2018 at 15:15 Date of Discharge 07/01/18 Admitting Diagnosis SBO HPI Cheo Wolff is a 62 year old male who was admitted on Jun 23, 2018 at 15: [address] Bow[address] Ob[address] abd done showing severe fecal impaction, GI and gen surg consulted, required very aggressive bowel care with multiple enemas patient also noted to have severe leukocytosis, repeat CT showed large right sided pleural effusion, thoracentesis done per pulm with studies sent ID consulted as well patient improving with broad spec abx patient denies any complaints dc home today will dc with one week of augmentin and doxy patient to f/u with his ID and Pulm Dr. carrillo, patient may need vats in the future.. patient notified and understands Physical Exam: General Appearance: WD/WN, alert, mild distress Lines, tubes and drains: peripheral HEENT: normocephalic Neck: non-tender, normal alignment, supple, normal inspection Respiratory/Chest: chest wall non-tender, lungs clear, normal breath sounds, no respiratory distress, no accessory muscle use Cardiovascular/Chest: normal peripheral pulses, normal rate, regular rhythm Abdomen: no organomegaly, no mass, decreased bowel sounds, other - abdominal distention, mild ttp diffusely Extremities: normal range of motion, non-tender, normal inspection, no calf tenderness Skin Exam: normal pigmentation, warm/dry Neurologic: stock drier tender II-XII grossly normal, no motor/sensory deficits, alert, oriented x 3, responsive, normal mood/affect Hospital Course (1) Sepsis Assessment & Plan: likely GI source vs CAP/PNA vs effusion wbc improving s/p thoracentesis ct done with massive right sided pleural effusion s/p thoracentesis patient on broad spectrum abx vanco, zosyn, azithro.. pending fluid studies.. dc home with one week of doxy and augmentin per id recs outpt f/u with pulm , may need vats in the future ID consulted, appreciate recs cont close monitoring ICD Codes: A41.9 - Sepsis, unspecified organism SNOMED: 59625299 (2) Small bowel obstruction Assessment & Plan: SBO ct showing fecal impaction multiple BMs after bowel care, resolved severe abd pain pain control GI consult appreciate close monitoring ICD Codes: K56.609 - Unspecified intestinal obstruction, unspecified as to partial versus complete obstruction SNOMED: 657999130 (3) Acute abdominal pain Assessment & Plan: due to severe constipation CT abd/pelvis reviewed, showing fecal impaction, no ischemia noted, repeat imaging per surgery enema bowel care suppository gi consult appreciated monitor closely resolved ICD Codes: R10.9 - Unspecified abdominal pain SNOMED: 021171506 (4) Fecal impaction Assessment & Plan: as per above cont bowel care gi consult ICD Codes: K56.41 - Fecal impaction SNOMED: 15493240 (5) Back pain at L4-L5 level Assessment & Plan: likely muscle spasms vs nerve impingement pt refused MRI due to claustrophobia, states back pain has improved, no associated neuropathy resume muscle relaxants gabapentin cyclobenzaprine morphine 2mg IV q6hrs back pain improved, does not seem neurological, no sciatica noted ICD Codes: M54.5 - Low back pain SNOMED: 681748026 (6) DEANNA (acute kidney injury) Assessment & Plan: due to dehydration Cr 1.1 on admit, pending repeat labs, cont IVF likely prerenal IVF monitor closely resolved ICD Codes: N17.9 - Acute kidney failure, unspecified SNOMED: 94739582 (7) Dehydration Assessment & Plan: IVF for hydration monitor closely NS 100cc/hr resolved ICD Codes: E86.0 - Dehydration SNOMED: 97445864 (8) AIDS Assessment & Plan: cont home meds ICD Codes: B20 - Human immunodeficiency virus [HIV] disease SNOMED: 04173654 (9) HIV (human immunodeficiency virus infection) Assessment & Plan: resume home meds ICD Codes: B20 - Human immunodeficiency virus [HIV] disease SNOMED: 60167693 Status: stable Assessment/Plan diet: clear liquid , adat DVT Prophylaxis: SCD, HSQ Code Status: Full Hospital Classification Declaration: Based on this initial evaluation, and depending on the patient's clinical course, I anticipate that this patient will require hospitalization for 2-3 midnights for severe back pain and abdominal pain and close respiratory/hemodynamic monitoring. Disposition: Once the patient is stable to leave the hospital, I anticipate the patient will likely be discharged to the following environment: home I spent over 40 minutes on this patient's case, and discharge/dispo planning and care coordination. Discussed with patient/family, nursing staff, SW/CM, and consultants regarding clinical status, treatment course, and disposition planning. Time of note may not reflect time of encounter. I have reviewed all imaging, labs and medications Discharge Condition Upon Discharge: stable Discharge Disposition Patient was discharged to home Discharge Diagnoses: (1) Fecal impaction (2) Back pain at L4-L5 level (3) Dehydration (4) DEANNA (acute kidney injury) (5) Small bowel obstruction (6) AIDS (7) HIV (human immunodeficiency virus infection) (8) Pleural effusion Dudley Giron MD Jul 01, 2018 08:11
[2018-07-01] MEDS: Docusate 100mg cap ORAL SCH (08:54)
[2018-07-01] MEDS: Azithromycin 250mg tab ORAL SCH (08:54)
[2018-07-01] MEDS: Metoprolol 25mg tab ORAL SCH (08:55)
[2018-07-01] MEDS: Cyclobenzaprine 10mg Tab ORAL SCH (08:55)
[2018-07-01] MEDS: TRIUMEQ ORAL SCH (09:00)
[2018-07-01] MEDS: Heparin 5000 units/ml inj SUBQ SCH (09:01)
[2018-07-01 09:22] LABS: EOSINOPHILS % (AUTO) 5.3 % (0.0-3.0); LYMPHOCYTES % (AUTO) 17.2 % (20.0-45.0); MEAN CORPUSCULAR VOLUME 97 FL (80-99); MONOCYTES % (AUTO) 11.1 % (1.0-10.0); NEUTROPHILS % (AUTO) 64.4 % (45.0-75.0); PLATELET COUNT 239 K/UL (150-450); RED BLOOD COUNT 5.34 M/UL (4.70-6.10); RED CELL DISTRIBUTION WIDTH 11.2 % (11.6-14.8); WHITE BLOOD COUNT 9.5 K/UL (4.8-10.8)
[2018-07-01 09:49] LABS: ALANINE AMINOTRANSFERASE 88 U/L (12-78); ALBUMIN 3.5 G/DL (3.4-5.0); ALBUMIN/GLOBULIN RATIO 1.2 (1.0-2.7); ALKALINE PHOSPHATASE 63 U/L (46-116); ANION GAP 7 mmol/L (5-15); ASPARTATE AMINO TRANSFERASE 56 U/L (15-37); BLOOD UREA NITROGEN 15 mg/dL (7-18); CALCIUM 9.9 MG/DL (8.5-10.1); CARBON DIOXIDE 30 MMOL/L (21-32); CHLORIDE 103 MMOL/L (98-107); CREATININE 1.3 MG/DL (0.55-1.30); POTASSIUM 3.7 MMOL/L (3.5-5.1); SODIUM 140 MMOL/L (136-145)
--- NOTE | 2018-07-01 10:22 | GI Progress Note ---
Assessment/Plan Problems: (1) Fecal impaction ICD Codes: K56.41 - Fecal impaction SNOMED: 32303678 (2) Dehydration ICD Codes: E86.0 - Dehydration SNOMED: 02332180 (3) Constipation ICD Codes: K59.00 - Constipation, unspecified SNOMED: 38542864 (4) Small bowel obstruction ICD Codes: K56.609 - Unspecified intestinal obstruction, unspecified as to partial versus complete obstruction SNOMED: 696835219 Status: stable Status Narrative Discussed with Dr. Scanlon Assessment/Plan Assessment - constipation, resolved - (R) sided large pleural effusion - Elevated WBC concerning - lactate level concerning - but now normal - No clear serious abdominal pathology identifiable - HIV Recommendations - po as tolerated - thoracentesis per pulmonary - follow closely - Repeat LFT - okay for DC per GI standpoint Subjective Subjective Denies any abdominal pain No reports of any BM Abdominal distention resolved Constipation resolved Tolerating regular diet Objective Last 24 Hour Vital Signs Date Time Temp Pulse Resp B/P (MAP) Pulse Ox O2 Delivery O2 Flow Rate FiO2 07/01/18 09:00 Room Air Room Air Room Air 07/01/18 08:55 81 171/106 07/01/18 08:00 98.6 122 20 171/106 (127) 94 07/01/18 08:00 81 18 Room Air 21 07/01/18 07:41 133 07/01/18 04:03 89 20 Room Air 21 07/01/18 04:00 98.4 110 20 160/92 (114) 96 07/01/18 04:00 123 07/01/18 00:00 112 07/01/18 00:00 98.1 108 20 151/97 (115) 94 06/30/18 21:27 110 156/106 06/30/18 21:00 Room Air Room Air Room Air 06/30/18 20:00 98.0 120 20 156/106 (123) 95 06/30/18 20:00 115 06/30/18 16:00 115 06/30/18 16:00 97.1 71 21 148/108 (121) 95 06/30/18 12:00 106 06/30/18 12:00 98.0 115 20 151/90 (110) 97 Intake and Output 06/30/18 07/01/18 19:00 07:00 Intake Total 900 ml 727.416 ml Output Total 1200 ml Balance -300 ml 727.416 ml Intake Oral 900 ml 250 ml IV Total 477.416 ml Output Urine Total 1200 ml # Voids 3 Laboratory Tests Test 07/01/18 08:40 White Blood Count 9.5 K/UL (4.8-10.8) Red Blood Count 5.34 M/UL (4.70-6.10) Hemoglobin 18.0 G/DL (14.2-18.0) Hematocrit 52.0 % (42.0-52.0) Mean Corpuscular Volume 97 FL (80-99) Mean Corpuscular Hemoglobin 33.7 PG (27.0-31.0) H Mean Corpuscular Hemoglobin Concent 34.7 G/DL (32.0-36.0) Red Cell Distribution Width 11.2 % (11.6-14.8) L Platelet Count 239 K/UL (150-450) Mean Platelet Volume 7.4 FL (6.5-10.1) Neutrophils (%) (Auto) 64.4 % (45.0-75.0) Lymphocytes (%) (Auto) 17.2 % (20.0-45.0) L Monocytes (%) (Auto) 11.1 % (1.0-10.0) H Eosinophils (%) (Auto) 5.3 % (0.0-3.0) H Basophils (%) (Auto) 2.0 % (0.0-2.0) Sodium Level 140 MMOL/L (136-145) Potassium Level 3.7 MMOL/L (3.5-5.1) Chloride Level 103 MMOL/L (98-107) Carbon Dioxide Level 30 MMOL/L (21-32) Anion Gap 7 mmol/L (5-15) Blood Urea Nitrogen 15 mg/dL (7-18) Creatinine 1.3 MG/DL (0.55-1.30) Estimat Glomerular Filtration Rate 55.6 mL/min (>60) Glucose Level 128 MG/DL (74-106) H Calcium Level 9.9 MG/DL (8.5-10.1) Total Bilirubin 1.0 MG/DL (0.2-1.0) Aspartate Amino Transf (AST/SGOT) 56 U/L (15-37) H Alanine Aminotransferase (ALT/SGPT) 88 U/L (12-78) H Alkaline Phosphatase 63 U/L (46-116) Total Protein 6.5 G/DL (6.4-8.2) Albumin 3.5 G/DL (3.4-5.0) Globulin 3.0 g/dL Albumin/Globulin Ratio 1.2 (1.0-2.7) Height (Feet): 6 Height (Inches): 0.00 Weight (Pounds): 200 General Appearance: WD/WN, no apparent distress, alert Cardiovascular: normal rate Respiratory/Chest: normal breath sounds, no respiratory distress Abdominal Exam: normal bowel sounds, non tender, soft Extremities: normal range of motion, non-tender Subha Villegas NP Jul 01, 2018 10:22
[2018-07-01 11:00] VITALS: BP 152/100
--- NOTE | 2018-07-01 11:05 | NUR ---
Home Discharge: Patient is being discharged from medical care. Awake, alert and oriented x 4. Blood pressure was rechecked as 152/100. Discharge instructions were given. Patient own medications were given. 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 In addition, discussed follow up appointments after discharge. Patient verbalized understanding of discharge instructions. All medical devices such as IV, heart monitor, and ID band were removed. Patient ambulated out with all personal belongings with steady gait. Went with friend in private vehicle.
--- NOTE | 2018-07-01 13:37 | NUR ---
[employer]ANCE [employer]IC[employer] FAXED TO [facility] T: [phone] F: [phone] REF #[id number]
== END 2018-07-01 11:05 | disposition home or self-care (01) | DRG 247 ==
LOC: EDBD 12:37 → EMR 14:54 → 2E 15:15 → EDBEDREQ 15:36 → 2E 17:04
PROC: 0W993ZX Drainage of Right Pleural Cavity, Percutaneous Approach, Diagnostic (ICD-10-PCS; principal; 2018-06-30)
DX: K56.609 Unspecified intestinal obstruction, unspecified as to partial versus complete obstruction (principal); A41.9 Sepsis, unspecified organism; J90 Pleural effusion, not elsewhere classified; N17.9 Acute kidney failure, unspecified; K59.00 Constipation, unspecified; E86.0 Dehydration; B20 Human immunodeficiency virus [HIV] disease; Z66 Do not resuscitate; M54.5 Low back pain; G62.9 Polyneuropathy, unspecified; J98.11 Atelectasis
CPT/HCPCS: 36415; 71045; 71260; 74018; 74177; 76942; 80048; 80053; 80202; 81003; 82150; 82164; 82248; 83605; 83690; 85007; 85025; 85610; 85651; 85730; 86140; 86360; 86635; 86738; 86850; 86900; 86901; 87536; 88104; 93005; 94640; 94664; 96374; 96375; 99285; J2405; J7620